=== PATIENT | male | born 1975 | race American Indian/Alaskan Native ===

== ENCOUNTER 2022-01-13 13:32 | Inpatient (IN) | payer MEDICAID, MEDICARE ==
[2022-01-13] MEDS ORDERED: IPRATROPIUM 0.02% NEBU 2.5 ML IH ONE (14:49)
[2022-01-13] MEDS ORDERED: ALBUTEROL 2.5 MG/3 ML NEBU IH ONE ×3 (14:49→21:20)
[2022-01-13] MEDS ORDERED: MAGNESIUM SULFATE 2 GM/50 ML BAG IV ONE (14:49)
[2022-01-13] MEDS ORDERED: AZITHROMYCIN 250 MG TAB PO ONE (14:49)
--- NOTE | 2022-01-13 14:58 | Emergency Department Report ---
<WARREN REILLY - Last Filed: 01/13/22 21:01> ED Shortness of Breath HPI - General Chief Complaint: Dyspnea/Respdistress Stated Complaint: COPD FLARE UP Time Seen by Provider: 01/13/22 14:03 Source: patient Mode of arrival: Wheelchair Limitations: Physical Limitation - History of Present Illness Initial Comments: 46 yo Morbidly Obese M with h/o smoking and COPD brought in by EMS with dyspnea that is been going on for the last 3 days and worsen today. He also mentioned that he ran out of his oxygen since Sunday about 3 days. Pt also mentioned that he was brought in by the EMS for his oxygen that is 4-5 O2/minutes every night and as needed during the day. No fever or chills reported but has been cough as well. No other modifying or associated factors. - Related Data Home Medications Medication Instructions Recorded Confirmed Last Taken Fluticasone/Umeclidin/Vilanter 20 inh INHALATION PRN 04/15/21 04/16/21 Unknown [Treleshanika Ellipta 100-62.5-25(Nf)] Ipratropium [Atrovent NEB] 20 inh INHALATION PRN 04/15/21 04/16/21 Unknown Lisinopril/Hydrochlorothiazide 20 mg DAILY 04/15/21 04/16/21 Unknown Previous Rx's Medication Instructions Recorded Last Taken Type ALPRAZolam [Xanax TAB] 0.5 mg PO Q8H PRN tablet 04/23/21 Unknown Rx Famotidine [Pepcid] 20 mg PO BID tablet 04/23/21 Unknown Rx Insulin Regular, Human [HumuLIN R] 0 units SUB-Q ACHS units 04/23/21 Unknown Rx Prednisone [predniSONE 10 mg 10 mg PO .TAPER #1 tab.ds.pk 04/23/21 Unknown Rx (6-Day Pack, 21 Tabs)] levoFLOXacin [Levaquin] 750 mg PO QDAY #7 tablet 04/23/21 Unknown Rx Allergies Allergy/AdvReac Type Severity Reaction Status Date / Time No Known Allergies Allergy Unverified 07/19/15 09:58 ED Review of Systems Comment: All other systems reviewed and negative Respiratory: cough, shortness of breath, SOB with exertion, SOB at rest ED Past Medical Hx - Past Medical History Previous Medical History?: Yes Hx Hypertension: Yes Hx Asthma: Yes Hx COPD: Yes - Social History Smoking Status: Former Smoker - Medications Home Medications: Home Medications Medication Instructions Recorded Confirmed Last Taken Type Fluticasone/Umeclidin/Vilanter 20 inh INHALATION PRN 04/15/21 04/16/21 Unknown History [Kelsey Ellipta 100-62.5-25(Nf)] Ipratropium [Atrovent NEB] 20 inh INHALATION PRN 04/15/21 04/16/21 Unknown History Lisinopril/Hydrochlorothiazide 20 mg DAILY 04/15/21 04/16/21 Unknown History ALPRAZolam [Xanax TAB] 0.5 mg PO Q8H PRN tablet 04/23/21 Unknown Rx Famotidine [Pepcid] 20 mg PO BID tablet 04/23/21 Unknown Rx Insulin Regular, Human [HumuLIN R] 0 units SUB-Q ACHS units 04/23/21 Unknown Rx Prednisone [predniSONE 10 mg 10 mg PO .TAPER #1 tab.ds.pk 04/23/21 Unknown Rx (6-Day Pack, 21 Tabs)] levoFLOXacin [Levaquin] 750 mg PO QDAY #7 tablet 04/23/21 Unknown Rx ED Physical Exam - General Limitations: Physical Limitation General appearance: alert, in distress (due to dyspnea), obese - Head Head exam: Present: normal inspection - Eye Eye exam: Present: normal appearance Pupils: Present: normal accommodation - ENT ENT exam: Present: normal exam, normal orophraynx, mucous membranes dry - Neck Neck exam: Present: normal inspection, full ROM. Absent: tenderness - Respiratory Respiratory exam: Present: respiratory distress (due to dyspnea ), rales, accessory muscle use. Absent: wheezes - Cardiovascular Cardiovascular Exam: Present: regular rate, normal rhythm, normal heart sounds - GI/Abdominal GI/Abdominal exam: Present: soft, normal bowel sounds. Absent: distended, tenderness - Extremities Exam Extremities exam: Present: normal inspection, normal capillary refill, pedal edema. Absent: tenderness - Back Exam Back exam: Absent: tenderness - Neurological Exam Neurological exam: Present: alert, oriented X3 - Psychiatric Psychiatric exam: Present: normal affect, normal mood - Skin Skin exam: Present: warm, normal color ED Course - Reevaluation(s) Reevaluation #1: Pt signed to Dr Villalpando at shift change while waiting for CT angio chest to rule out PE Pt will need to be admitted for COPD exacerbation or unless positive PE-- ED Medical Decision Making - Lab Data Result diagrams: 01/13/22 15:09 01/13/22 15:09 - EKG Data -: EKG Interpreted by Me EKG shows normal: sinus rhythm Rate: normal - EKG Data 01/13/22 15:03 Noted with a sinus rhythm at a rate of 96 bpm, with nonspecific T wave abnormality in this abnormal ECG. - Medical Decision Making Here with shortness of breath--among differential diagnosis could be but not limited to acute exacerbation of COPD, myocardiac infarction, pulmonary embolism, acute exacerbation of asthma, pneumothorax, pneumonia or Viral or Bacterial Upper/Lower respiratory tract infection or other systemic infection.--To rule out the above will go ahead and order EKG, cardiac enzyme including troponin, BNP, CKMB, chest x-ray, CBC, CMP, UA and or D-dimer. In the meantime we will go ahead and treat with DuoNeb, 125 mg of Solu-Medrol, magnesium sulfate 2 g IV, and will make a case for antibiotics Levaquin considering likely cause to be acute COPD exacerbation and continue to monitor the patient. ED Disposition Clinical Impression: Multifocal pneumonia, Acute respiratory failure with hypoxia, Obesity hypoventilation syndrome Disposition: ADMITTED INPATIENT Does the pt Need Aspirin: No Condition: Stable Instructions: Bacterial Pneumonia (ED) Referrals: PRIMARY CARE, [Primary Care Provider] - 3-5 Days Time of Disposition: 21:06 <SILVER VILLALPANDO - Last Filed: 01/13/22 23:29> ED Review of Systems ROS: Stated complaint: COPD FLARE UP Other details as noted in HPI ED Course Vital Signs 01/13/22 01/13/22 01/13/22 13:58 13:59 14:10 Temperature 98.6 F Pulse Rate 96 H 95 H Pulse Rate [ Bilateral] Respiratory 32 H 36 H Rate Respiratory Rate [Bilateral ] Blood Pressure Blood Pressure 196/113 [Left] O2 Sat by Pulse 91 92 Oximetry 01/13/22 01/13/22 01/13/22 14:16 14:20 14:30 Temperature Pulse Rate 91 H 90 89 Pulse Rate [ Bilateral] Respiratory 25 H 24 32 H Rate Respiratory Rate [Bilateral ] Blood Pressure 196/113 200/105 Blood Pressure [Left] O2 Sat by Pulse 94 96 95 Oximetry 01/13/22 01/13/22 01/13/22 14:45 15:00 15:16 Temperature Pulse Rate 84 97 H 93 H Pulse Rate [ Bilateral] Respiratory 25 H 29 H 30 H Rate Respiratory Rate [Bilateral ] Blood Pressure 185/107 185/107 187/138 Blood Pressure [Left] O2 Sat by Pulse 90 97 90 Oximetry 01/13/22 01/13/22 01/13/22 15:30 15:46 16:00 Temperature Pulse Rate 82 83 78 Pulse Rate [ Bilateral] Respiratory 31 H 33 H 31 H Rate Respiratory Rate [Bilateral ] Blood Pressure 187/138 197/116 187/138 Blood Pressure [Left] O2 Sat by Pulse 92 92 97 Oximetry 01/13/22 01/13/22 01/13/22 16:15 16:30 16:35 Temperature Pulse Rate 75 77 92 H Pulse Rate [ Bilateral] Respiratory 28 H 27 H 22 Rate Respiratory Rate [Bilateral ] Blood Pressure 183/97 183/97 Blood Pressure [Left] O2 Sat by Pulse 95 94 96 Oximetry 01/13/22 01/13/22 01/13/22 16:46 17:00 17:15 Temperature Pulse Rate 78 77 78 Pulse Rate [ Bilateral] Respiratory 30 H 22 32 H Rate Respiratory Rate [Bilateral ] Blood Pressure 186/105 186/105 182/90 Blood Pressure [Left] O2 Sat by Pulse 88 91 93 Oximetry 01/13/22 01/13/22 01/13/22 17:30 17:45 17:55 Temperature Pulse Rate 72 76 Pulse Rate [ Bilateral] Respiratory 30 H 29 H Rate Respiratory Rate [Bilateral ] Blood Pressure 182/90 187/93 Blood Pressure [Left] O2 Sat by Pulse 97 97 92 Oximetry 01/13/22 01/13/22 01/13/22 18:00 18:15 18:17 Temperature Pulse Rate 83 82 Pulse Rate [ Bilateral] Respiratory 34 H 34 H Rate Respiratory Rate [Bilateral ] Blood Pressure 187/93 155/92 Blood Pressure [Left] O2 Sat by Pulse 96 93 96 Oximetry 01/13/22 01/13/22 01/13/22 18:30 19:54 20:34 Temperature Pulse Rate 82 86 Pulse Rate [ 90 Bilateral] Respiratory 32 H 36 H Rate Respiratory 34 H Rate [Bilateral ] Blood Pressure 155/92 199/129 Blood Pressure [Left] O2 Sat by Pulse 97 98 Oximetry 01/13/22 01/13/22 21:48 22:13 Temperature Pulse Rate 112 H Pulse Rate [ 124 H Bilateral] Respiratory 35 H Rate Respiratory 34 H Rate [Bilateral ] Blood Pressure 197/109 Blood Pressure [Left] O2 Sat by Pulse 96 Oximetry ED Medical Decision Making - Lab Data Result diagrams: 01/13/22 15:09 01/13/22 15:09 - Medical Decision Making Signed out at shift change to hi for follow-up CTA chest. CTA chest negative for PE however shows multifocal pneumonia. Patient already given IV Levaquin. He is stable on BiPAP. Will admit to hospitalist. Critical care attestation.: If time is entered above; I have spent that time in minutes in the direct care of this critically ill patient, excluding procedure time. ED Disposition Is pt being admited?: Yes
--- NOTE | 2022-01-13 15:55 | XRay Report ---
XR chest 1V ap INDICATION / CLINICAL INFORMATION: Dyspnea. COMPARISON: 04/14/2021 FINDINGS: SUPPORT DEVICES: None. HEART /PULMONARY VASCULATURE: Cardiac enlargement with pulmonary vasculature congestion. LUNGS / PLEURA: Mild interstitial and airspace opacities within the lung bases, slightly more pronoun juanjo in the right. No sizable pleural effusion. No pneumothorax. ADDITIONAL FINDINGS: No significant additional findings. IMPRESSION: Findings indicative of CHF/volume overload with bibasilar pulmonary edema. Signer Name: Parker Anthony MD Signed: 01/13/2022 3:51 PM Workstation Name: [email or web address]
[2022-01-13 15:59] LABS: Basophils # (Auto) 0.1 K/mm3 (0.0-0.1); Basophils % (Auto) 1.3 % (0.0-1.8); Eosinophils # (Auto) 0.3 K/mm3 (0.0-0.4); Eosinophils % (Auto) 3.7 % (0.0-4.3); Hematocrit 36.3 % (35.5-45.6); Hemoglobin 11.3 gm/dl (11.8-15.2); Lymphocytes # (Auto) 1.4 K/mm3 (1.2-5.4); Lymphocytes % (Auto) 19.7 % (13.4-35.0); Mean Corpuscular HGB Conc 31 % (32-34); Monocytes # (Auto) 0.8 K/mm3 (0.0-0.8); Monocytes % (Auto) 11.2 % (0.0-7.3); Platelet Count 398 K/mm3 (140-440); Red Blood Count 5.26 M/mm3 (3.65-5.03); Red Cell Distribution Width 18.3 % (13.2-15.2)
[2022-01-13 16:02] LABS: ABG Base Excess 0.9 mmol/L (-2.0-3.0); ABG HCO3 25.1 mmol/L (20.0-26.0); ABG Methemoglobin 0.5 % (0.0-1.5); ABG Oxygen Saturation 97.1 % (95.0-99.0); ABG PCO2 38.4 mm Hg; ABG PH 7.432 pH Units (7.350-7.450); ABG PO2 87.5 mm Hg (80.0-90.0)
[2022-01-13 16:04] LABS: INR 0.93 (0.87-1.13)
[2022-01-13 16:05] LABS: Partial Thromboplastin Time 29.6 Sec. (24.2-36.6)
[2022-01-13 16:41] LABS: Mean Corpuscular Volume 69 fl (84-94)
[2022-01-13 17:50] LABS: Alanine Aminotransferase 11 units/L (7-56); Albumin 4.2 g/dL (3.9-5); Blood Urea Nitrogen 8 mg/dL (9-20); Calcium 8.7 mg/dL (8.4-10.2); Hemolysis Index 0
[2022-01-13 18:10] LABS: BUN/Creatinine Ratio 13
[2022-01-13] MEDS ORDERED: MIDAZOLAM 2 MG/2 ML INJ IV ONE (18:36)
[2022-01-13] MEDS ORDERED: MIDAZOLAM 5 MG/5 ML INJ MDV IV ONE (19:50)
[2022-01-13] MEDS ORDERED: IPRATROPIUM/ALBUTEROL SULFATE 3 ML AMPUL.NEB IH ONE ×3 (19:58→22:56)
[2022-01-13] MEDS ORDERED: IPRATROPIUM/ALBUTEROL SULFATE 3 ML AMPUL.NEB IH SCH (20:45)
--- NOTE | 2022-01-13 21:28 | Cat Scan Report ---
CTA CHEST WITH CONTRAST INDICATION / CLINICAL INFORMATION: rule out PE. TECHNIQUE: Axial CT images were obtained through the chest after injection of IV contrast. 3 plane [place] P and/or 3D reconstructions were produced. All CT scans at this location are performed using CT dose reduction for ALARA by means of automated exposure control. COMPARISON: No prior cross-sectional imaging of the chest FINDINGS: PULMONARY EMBOLUS: Evaluation for pulmonary embolus is limited secondary to photon starvation and res piratory motion. Evaluation of the segmental and subsegmental pulmonary arteries is limited. No centr al pulmonary embolus. THORACIC AORTA: No significant abnormality. HEART: Upper limits normal in size. CORONARY ARTERY CALCIFICATION: Absent -- None. MEDIASTINUM / GASTON: Multiple enlarged mediastinal lymph nodes, for example right paratracheal lymph n ode measures 1.6 cm in short axis on image 51 series 2. PLEURA: No pleural effusion. No pneumothorax. LUNGS: Patchy areas of consolidation throughout both lungs, most pronounced in the lower lobes. ADDITIONAL FINDINGS: None. UPPER ABDOMEN: Post surgical changes of the stomach. SKELETAL STRUCTURES: No significant osseous abnormality. IMPRESSION: 1. No CT evidence for pulmonary embolism within the limitations detailed above. 2. Bilateral patchy consolidation throughout both lungs, suggestive of multifocal pneumonia. Mediasti nal lymphadenopathy is likely reactive. Signer Name: Henry Wang MD Signed: 01/13/2022 9:23 PM Workstation Name: [id number]
[2022-01-13] MEDS ORDERED: ONDANSETRON 4 MG/2 ML INJ IV PRN ×2 (23:31→23:34)
[2022-01-13] MEDS ORDERED: ACETAMINOPHEN 325 MG TAB PO PRN ×2 (23:31→23:58)
[2022-01-13] MEDS ORDERED: HYDROcodone/ACETAMINOPHEN 5-325 MG TAB PO PRN (23:31)
[2022-01-13] MEDS ORDERED: MORPHINE 2 MG/1 ML INJ IV PRN ×2 (23:31→23:58)
[2022-01-13] MEDS ORDERED: oxyCODONE /ACETAMINOPHEN 5-325MG TAB PO PRN (23:34)
[2022-01-13] MEDS ORDERED: IBUPROFEN 600 MG TAB PO PRN (23:34)
[2022-01-13] MEDS ORDERED: ENOXAPARIN 40 MG/0.4 ML INJ SUB-Q ONE (23:35)
[2022-01-13] MEDS ORDERED: SODIUM CHLORIDE 0.9% 1000 ML 1,000 ML IV SCH (23:45)
[2022-01-13] MEDS: cefTRIAXone/NS 2 GM/100 ML 2 GM/100 ML BAG IV SCH (23:45)
[2022-01-13] MEDS ORDERED: MAGNESIUM HYDROXIDE (MOM) ORAL LIQD UDC PO PRN (23:58)
[2022-01-13] MEDS ORDERED: MORPHINE 4 MG/1 ML INJ IV PRN (23:58)
--- NOTE | 2022-01-14 00:11 | History and Physical Report ---
History of Present Illness Date of examination: 01/13/22 Date of admission: 01/13/22 23:34 Chief complaint: Shortness of Breath History of present illness: 46-year old morbidly obese male with known history of COPD and tobacco abuse brought into the emergency room today for evaluation of shortness of breath. Shortness of breath has been ongoing for the past 3 days and has gotten worse today. He also indicates that he has been out of his oxygen at home for about 3 days. There has been no history of fever or chills, no chest pain, no nausea or vomiting, no abdominal pain. No headache or dizziness and no diaphoresis. Upon arrival in the emergency room today he was quite tachypneic and tachycardic and found to be wheezing. He was subsequently placed on BiPAP and nebulizing treatments. Lab reveals a D-dimer of 942. Chest x-ray shows CHF/volume overload with bibasilar pulmonary edema CT angiogram of the chest shows no evidence of pulmonary embolism. There is bilateral patchy consolidation throughout both lungs suggestive of multifocal pneumonia. Mediastinal lymphadenopathy is likely reactive. Patient has been placed on nebulizing treatments, empiric IV antibiotics and also on BiPAP. Past History Past Medical History: COPD, hypertension, other (Asthma) Social history: smoking (Former Smoker) Family history: no significant family history Medications and Allergies Allergies Allergy/AdvReac Type Severity Reaction Status Date / Time No Known Allergies Allergy Unverified 07/19/15 09:58 Home Medications Medication Instructions Recorded Confirmed Last Taken Type Fluticasone/Umeclidin/Vilanter 20 inh INHALATION PRN 04/15/21 04/16/21 Unknown History [Kelsey Barbosa 100-62.5-25(Nf)] Ipratropium [Atrovent NEB] 20 inh INHALATION PRN 04/15/21 04/16/21 Unknown History Lisinopril/Hydrochlorothiazide 20 mg DAILY 04/15/21 04/16/21 Unknown History ALPRAZolam [Xanax TAB] 0.5 mg PO Q8H PRN tablet 04/23/21 Unknown Rx Famotidine [Pepcid] 20 mg PO BID tablet 04/23/21 Unknown Rx Insulin Regular, Human [HumuLIN R] 0 units SUB-Q ACHS units 04/23/21 Unknown Rx Prednisone [predniSONE 10 mg 10 mg PO .TAPER #1 tab.ds.pk 04/23/21 Unknown Rx (6-Day Pack, 21 Tabs)] levoFLOXacin [Levaquin] 750 mg PO QDAY #7 tablet 04/23/21 Unknown Rx Active Meds: Active Medications Acetaminophen (Acetaminophen 325 Mg Tab) 650 mg PO Q4H PRN PRN Reason: Pain MILD(1-3)/Fever >100.5/CHANG Acetaminophen (Acetaminophen 325 Mg Tab) 650 mg PO Q6H PRN PRN Reason: Pain MILD(1-3)/Fever >100.5/CHANG Hydrocodone Bitart/Acetaminophen (Hydrocodone/Acetaminophen 5-325 Mg Tab) 2 each PO Q6H PRN PRN Reason: Pain, Moderate (4-6) Albuterol/Ipratropium (Ipratropium/Albuterol Sulfate 3 Ml Ampul.Neb) 1 ampul IH Q4HRT ZAKI Azithromycin (Azithromycin 250 Mg Tab) 500 mg PO QDAY ZAKI; Protocol Sodium Chloride (Nacl 0.9% 1000 Ml) 1,000 mls @ 75 mls/hr IV DIRECT ZAKI Ceftriaxone Sodium (Rocephin/Ns 2 Gm/100 Ml) 2 gm in 100 mls @ 200 mls/hr IV Q24H ZAKI; Protocol Ibuprofen (Ibuprofen 600 Mg Tab) 600 mg PO Q6H PRN PRN Reason: Pain, Mild (1-3) Magnesium Hydroxide (Magnesium Hydroxide (Mom) Oral Liqd Udc) 30 ml PO Q4H PRN PRN Reason: Constipation Methylprednisolone Sodium Succinate (Methylprednisolone Sod Succinate 40 Mg/1 Ml Inj) 40 mg IV Q8HR ZAKI Morphine Sulfate (Morphine 2 Mg/1 Ml Inj) 2 mg IV Q4H PRN PRN Reason: Pain, Moderate (4-6) Morphine Sulfate (Morphine 2 Mg/1 Ml Inj) 2 mg IV Q4H PRN PRN Reason: Pain, Moderate (4-6) Morphine Sulfate (Morphine 4 Mg/1 Ml Inj) 4 mg IV Q4H PRN PRN Reason: Pain , Severe (7-10) Ondansetron HCl (Ondansetron 4 Mg/2 Ml Inj) 4 mg IV Q8H PRN PRN Reason: Nausea And Vomiting Ondansetron HCl (Ondansetron 4 Mg/2 Ml Inj) 4 mg IV Q8H PRN PRN Reason: Nausea And Vomiting Oxycodone/Acetaminophen (Oxycodone /Acetaminophen 5-325mg Tab) 1 tab PO Q6H PRN PRN Reason: Pain, Moderate (4-6) Sodium Chloride (Sodium Chloride 0.9% 10 Ml Flush Syringe) 10 ml IV PRN PRN PRN Reason: LINE FLUSH Sodium Chloride (Sodium Chloride 0.9% 10 Ml Flush Syringe) 10 ml IV BID ZAKI Sodium Chloride (Sodium Chloride 0.9% 10 Ml Flush Syringe) 10 ml IV BID ZAKI Sodium Chloride (Sodium Chloride 0.9% 10 Ml Flush Syringe) 10 ml IV PRN PRN PRN Reason: LINE FLUSH Review of Systems Constitutional: no fever, no chills Ears, nose, mouth and throat: no nasal congestion, no sore throat Cardiovascular: no chest pain, no palpitations Respiratory: cough, shortness of breath, wheezing Gastrointestinal: no abdominal pain, no nausea, no vomiting, no diarrhea Genitourinary Male: no dysuria, no hematuria, no flank pain Musculoskeletal: no neck pain, no low back pain Integumentary: no rash, no pruritis Neurological: no headaches, no confusion Psychiatric: no anxiety, no depression Endocrine: no polyphagia, no polydipsia, no polyuria, no nocturia Exam - Constitutional Vitals: Temp Pulse Resp BP Pulse Ox 98.6 F 112 H 35 H 197/109 96 01/13/22 13:59 01/13/22 22:13 01/13/22 22:13 01/13/22 22:13 01/13/22 22:13 General appearance: Present: mild distress, well-nourished, obese - EENT Eyes: Present: PERRL, EOM intact. Absent: scleral icterus ENT: hearing intact, clear oral mucosa, dentition normal - Neck Neck: Present: supple, normal ROM - Respiratory Respiratory effort: labored, other (On BiPAP) Respiratory: bilateral: wheezing - Cardiovascular Rhythm: regular Heart Sounds: Present: S1 & S2. Absent: systolic murmur, diastolic murmur, rub, click - Extremities Extremities: no ischemia, pulses intact, pulses symmetrical, No edema, normal temperature, normal color, Full ROM Peripheral Pulses: within normal limits - Abdominal General gastrointestinal: Present: soft, non-tender, non-distended, normal bowel sounds. Absent: mass - Integumentary Integumentary: Present: clear, warm, dry, normal turgor. Absent: rash - Musculoskeletal Musculoskeletal: strength equal bilaterally - Psychiatric Psychiatric: appropriate mood/affect, intact judgment & insight, memory intact, cooperative - Neurologic Neurologic: CNII-XII intact, no focal deficits, moves all extremities HEART Score - HEART Score Troponin: Troponin T < 0.010 ng/mL (0.00-0.029) 01/13/22 15:09 Results - Labs CBC & Chem 7: 01/13/22 15:09 01/13/22 15:09 Labs: Abnormal lab results 01/13/22 01/13/22 01/13/22 Range/Units 15:09 15:09 15:09 RBC 5.26 H (3.65-5.03) M/mm3 Hgb 11.3 L (11.8-15.2) gm/dl MCV 69 L (84-94) fl MCH 22 L (28-32) pg MCHC 31 L (32-34) % RDW 18.3 H (13.2-15.2) % Amelia % (Auto) 11.2 H (0.0-7.3) % D-Dimer 942.90 H (0-234) ng/mlDDU ABG Hemoglobin (14.0-18.0) gm/dl Oxyhemoglobin (95.0-99.0) % BUN 8 L (9-20) mg/dL Creatinine 0.6 L (0.8-1.3) mg/dL Alkaline Phosphatase 138 H (35-129) units/L 01/13/22 Range/Units 15:45 RBC (3.65-5.03) M/mm3 Hgb (11.8-15.2) gm/dl MCV (84-94) fl MCH (28-32) pg MCHC (32-34) % RDW (13.2-15.2) % Amelia % (Auto) (0.0-7.3) % D-Dimer (0-234) ng/mlDDU ABG Hemoglobin 11.9 L (14.0-18.0) gm/dl Oxyhemoglobin 94.7 L (95.0-99.0) % BUN (9-20) mg/dL Creatinine (0.8-1.3) mg/dL Alkaline Phosphatase (35-129) units/L Assessment and Plan Assessment: 1. Acute hypoxic respiratory failure 2. COPD exacerbation 3. PUI 4. Multifocal pneumonia 5. Hypertension Plan: 1. Patient admitted and placed on BiPAP. 2. Keep O2 saturation greater equal to 92%. 3. Patient placed on nebulizing treatment and IV steroid. 4. Patient also started on empiric IV antibiotics. DVT prophylaxis: Subcutaneous Lovenox CODE STATUS: Full code
[2022-01-14] MEDS: IPRATROPIUM/ALBUTEROL SULFATE 3 ML AMPUL.NEB IH SCH ×6 (00:41→20:59)
[2022-01-14] MEDS ORDERED: HEPARIN 5,000 UNIT/1 ML VIAL SUB-Q SCH (06:00)
[2022-01-14] MEDS ORDERED: methylPREDNISolone Sod Succinate 40 MG/1 ML INJ IV SCH (06:00)
[2022-01-14] MEDS ORDERED: hydrALAZINE 20 MG/1 ML INJ IV ONE (08:02)
[2022-01-14 09:37] LABS: Amphetamine Screen,Urine Negative; Cannabinoid Screen,Urine Negative; Cocaine Screen,Urine Negative; Methadone Screen,Urine Negative; Opiate Screen,Urine Negative
[2022-01-14 09:38] LABS: Benzodiazepines Screen,Urine Positive
[2022-01-14] MEDS ORDERED: HYDROCHLOROTHIAZIDE PO SCH (10:00)
[2022-01-14] MEDS ORDERED: AZITHROMYCIN 250 MG TAB PO SCH (10:00)
[2022-01-14] MEDS ORDERED: LISINOPRIL PO SCH (10:00)
[2022-01-14] MEDS: hydrALAZINE 20 MG/1 ML INJ IV PRN ×3 (10:34→21:21)
[2022-01-14] MEDS: cefTRIAXone/NS 2 GM/100 ML 2 GM/100 ML BAG IV SCH (10:35)
[2022-01-14] MEDS: FAMOTIDINE 20 MG TAB PO SCH ×2 (10:35→21:22)
[2022-01-14] MEDS ORDERED: MIDAZOLAM 2 MG/2 ML INJ IV SCH (11:00)
--- NOTE | 2022-01-14 11:12 | Progress Note ---
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 Patient remains on Bipap at 60% Fio2, 16/01, SPO2 above 95%. COVID and Flu PCR pending. Continue empiric IV Abx and IV steroids. Pulmonary and ID consult pending. Patient unable to tolerate Bipap off at this am, unable to administer PO meds. PRN hydralazine added for hypertension. Assessment and Plan #Acute Hypoxic Respiratory Failure #Multifocal Pneumonia(CAP) #COVID PUI #H/o COPD and ANNETTA on CPAP at home - Presented with SOB for 3days, use PRN O2 at home. Patient run out of O2 for 3days - SPO2 was in the 80s on 2L on the ED - CTA chest shows no PE, but suggestive of multifocal pneumonia - COVID PCR and Flu PCR pending - Now on continuous Bipap at 60%, 16/01 - Patient is afebrile, with no leukocytosis - On IV steroids, nebulizing treatments, and empiric IV abx- Azithro and Rocephin - Pulmonary and ID consulted - Continue O2 supplementation and wean as tolerated - Continue SPO2 monitoring for SPO2 goal above 92% - Panculture if febrile or patient become hemodynamically unstable #Hypertension - SBP in the 180s this am - Patient unable to tolerate Bipap off at this am, unable to administer PO meds - PRN Hydralazine added - Continue blood pressure monitor per protocol - Maintain MAP SBP less than 160 #Elevated D-Dimer - COVID PCR pending - CTA chest no evidence of PE - BLE doppler ordered to r/o DVT #GI/DVT Prophylaxis - PPI- Pepcid - Lovenox SubQ - SCDs to bilateral lower extremities while in bed #Advance Care Planning - Disease education data, care plan, diagnoses, and prognosis were discussed with patient at the bedside. Patient is a FULL code. Patient acknowledged understanding and agreed with current care plan. The high probability of a clinically significant, sudden or life threatening deterioration of the [multiple] system(s) required my full and direct attention, intervention and personal management. The aggregate critical care time was [60] minutes. This time is in addition to time spent performing reported procedures but includes the following: [x] Data Review and interpretation [x] Patient assessment and monitoring of vital signs [x] Documentation [x] Medication orders and management Disposition Plan: IMCU Total Time Spent with Patient (Minutes): 60 History Interval history: Patient seen and examined at the bedside. Fully AAO, on continuous Bipap at 60% and 22/8, SPO2 above 95%. Patient appears very anxious this am with hypertension, tachycardia, and tachypnea. X1 dose of IV versed given with positive response. Hospitalist Physical - Constitutional Vitals: Temp Pulse Resp BP Pulse Ox 98.6 F 87 32 H 150/86 94 01/13/22 13:59 01/14/22 09:10 01/14/22 09:00 01/14/22 09:10 01/14/22 09:00 General appearance: Present: mild distress, well-nourished, obese - EENT Eyes: Present: PERRL, EOM intact ENT: hearing intact - Neck Neck: Present: normal ROM - Respiratory Respiratory effort: labored, accessory muscle use, other (Tachypnea) Respiratory: bilateral: wheezing - Cardiovascular Rhythm: regular Heart Sounds: Present: S1 & S2 - Extremities Extremities: no ischemia, pulses intact, pulses symmetrical Extremity abnormal: edema - Peripheral Assessment Generalized Edema Type: Non-pitting Edema Degree: 3+ Capillary Refill: < 3 seconds Skin Temperature: Warm Peripheral Pulses: within normal limits - Abdominal General gastrointestinal: soft, non-distended, normal bowel sounds - Integumentary Integumentary: Present: warm, dry - Psychiatric Psychiatric: cooperative, other (Anxiuous) - Neurologic Neurologic: CNII-XII intact, moves all extremities - Allied Health Allied health notes reviewed: nursing HEART Score - HEART Score Troponin: Troponin T < 0.010 ng/mL (0.00-0.029) 01/13/22 15:09 Results - Labs CBC & Chem 7: 01/13/22 15:09 01/13/22 15:09 Labs: Laboratory Last Values WBC 6.9 K/mm3 (4.5-11.0) 01/13/22 15:09 RBC 5.26 M/mm3 (3.65-5.03) H 01/13/22 15:09 Hgb 11.3 gm/dl (11.8-15.2) L 01/13/22 15:09 Hct 36.3 % (35.5-45.6) 01/13/22 15:09 MCV 69 fl (84-94) L 01/13/22 15:09 MCH 22 pg (28-32) L 01/13/22 15:09 MCHC 31 % (32-34) L 01/13/22 15:09 RDW 18.3 % (13.2-15.2) H 01/13/22 15:09 Plt Count 398 K/mm3 (140-440) 01/13/22 15:09 Lymph % (Auto) 19.7 % (13.4-35.0) 01/13/22 15:09 [facility] % (Auto) 11.2 % (0.0-7.3) H 01/13/22 15:09 Eos % (Auto) 3.7 % (0.0-4.3) 01/13/22 15:09 Baso % (Auto) 1.3 % (0.0-1.8) 01/13/22 15:09 Lymph # (Auto) 1.4 K/mm3 (1.2-5.4) 01/13/22 15:09 [facility] # (Auto) 0.8 K/mm3 (0.0-0.8) 01/13/22 15:09 Eos # (Auto) 0.3 K/mm3 (0.0-0.4) 01/13/22 15:09 Baso # (Auto) 0.1 K/mm3 (0.0-0.1) 01/13/22 15:09 Seg Neutrophils % 64.1 % (40.0-70.0) 01/13/22 15:09 Seg Neutrophils # 4.4 K/mm3 (1.8-7.7) 01/13/22 15:09 PT 13.5 Sec. (12.2-14.9) 01/13/22 15:09 INR 0.93 (0.87-1.13) 01/13/22 15:09 APTT 29.6 Sec. (24.2-36.6) 01/13/22 15:09 D-Dimer 942.90 ng/mlDDU (0-234) H 01/13/22 15:09 ABG pH 7.432 pH Units (7.350-7.450) 01/13/22 15:45 ABG pCO2 38.4 mm Hg 01/13/22 15:45 ABG pO2 87.5 mm Hg (80.0-90.0) 01/13/22 15:45 ABG HCO3 25.1 mmol/L (20.0-26.0) 01/13/22 15:45 ABG O2 Saturation 97.1 % (95.0-99.0) 01/13/22 15:45 ABG O2 Content 15.9 (0.0-44) 01/13/22 15:45 ABG Base Excess 0.9 mmol/L (-2.0-3.0) 01/13/22 15:45 ABG Hemoglobin 11.9 gm/dl (14.0-18.0) L 01/13/22 15:45 ABG Carboxyhemoglobin 2.0 % (0.0-5.0) 01/13/22 15:45 ABG Methemoglobin 0.5 % (0.0-1.5) 01/13/22 15:45 Oxyhemoglobin 94.7 % (95.0-99.0) L 01/13/22 15:45 FiO2 40 % 01/13/22 15:45 Sodium 137 mmol/L (137-145) 01/13/22 15:09 Potassium 4.3 mmol/L (3.6-5.0) 01/13/22 15:09 Chloride 101.4 mmol/L (98-107) 01/13/22 15:09 Carbon Dioxide 25 mmol/L (22-30) 01/13/22 15:09 Anion Gap 15 mmol/L 01/13/22 15:09 BUN 8 mg/dL (9-20) L 01/13/22 15:09 Creatinine 0.6 mg/dL (0.8-1.3) L 01/13/22 15:09 Estimated GFR > 60 ml/min 01/13/22 15:09 BUN/Creatinine Ratio 13 % 01/13/22 15:09 Glucose 92 mg/dL (75-100) 01/13/22 15:09 Calcium 8.7 mg/dL (8.4-10.2) 01/13/22 15:09 Total Bilirubin 0.20 mg/dL (0.1-1.2) 01/13/22 15:09 AST 13 units/L (5-40) 01/13/22 15:09 ALT 11 units/L (7-56) 01/13/22 15:09 Alkaline Phosphatase 138 units/L (35-129) H 01/13/22 15:09 Troponin T < 0.010 ng/mL (0.00-0.029) 01/13/22 15:09 Total Protein 6.3 g/dL (6.3-8.2) 01/13/22 15:09 Albumin 4.2 g/dL (3.9-5) 01/13/22 15:09 Albumin/Globulin Ratio 2.0 % 01/13/22 15:09 Urine Opiates Screen Negative 01/14/22 08:49 Urine Methadone Screen Negative 01/14/22 08:49 Ur Barbiturates Screen Negative 01/14/22 08:49 Ur Phencyclidine Scrn Negative 01/14/22 08:49 Ur Amphetamines Screen Negative 01/14/22 08:49 U Benzodiazepines Scrn Positive 01/14/22 08:49 Urine Cocaine Screen Negative 01/14/22 08:49 U Marijuana (THC) Screen Negative 01/14/22 08:49 Drugs of Abuse Note Disclamer 01/14/22 08:49 SARS-CoV-2 (PCR) Negative (Negative) 01/14/22 10:30 Active Medications - Current Medications Current Medications: Generic Name Dose Route Start Last Admin Trade Name Freq PRN Reason Stop Dose Admin Acetaminophen 650 mg 01/13/22 23:58 Acetaminophen 325 Mg Tab PO Q6H PRN Pain MILD(1-3)/Fever >100.5/CHANG Albuterol/Ipratropium 1 ampul 01/14/22 00:00 01/14/22 07:52 Ipratropium/Albuterol Sulfate 3 Ml Ampul.Neb IH 1 ampul Q4HRT ZAKI Administration Alprazolam 0.5 mg 01/14/22 08:22 Alprazolam 0.5 Mg Tab PO Q8H PRN Anxiety Azithromycin 500 mg 01/14/22 10:00 01/14/22 10:35 Azithromycin 250 Mg Tab PO Not Given QDAY [facility] Protocol Enoxaparin Sodium 40 mg 01/14/22 22:00 Enoxaparin 40 Mg/0.4 Ml Inj SUB-Q QHS [facility] Protocol Famotidine 20 mg 01/14/22 10:00 01/14/22 10:35 Famotidine 20 Mg Tab PO Not Given BID [facility] Hydralazine HCl 10 mg 01/14/22 08:28 01/14/22 10:34 Hydralazine 20 Mg/1 Ml Inj IV 10 mg Q4HR PRN Administration Hypertension Sodium Chloride 1,000 mls @ 75 mls/hr 01/13/22 23:45 Nacl 0.9% 1000 Ml IV DIRECT ZAKI Ceftriaxone Sodium 2 gm in 100 mls @ 200 mls/hr 01/13/22 23:45 01/14/22 10:35 Rocephin/Ns 2 Gm/100 Ml IV 200 mls/hr Q24HR [facility] Administration Protocol Ibuprofen 600 mg 01/13/22 23:34 Ibuprofen 600 Mg Tab PO Q6H PRN Pain, Moderate (4-6) Magnesium Hydroxide 30 ml 01/13/22 23:58 Magnesium Hydroxide (Mom) Oral Liqd Udc PO Q4H PRN Constipation Methylprednisolone Sodium Succinate 80 mg 01/14/22 11:07 Methylprednisolone Sod Succinate 40 Mg/1 Ml Inj IV Q8HR [facility] Midazolam HCl 1 mg 01/14/22 11:00 01/14/22 11:02 Midazolam 2 Mg/2 Ml Inj IV 1 mg ONCE [facility] Administration Miscellaneous Medication 20 mg 01/14/22 10:00 Lisinopril/Hydrochlorothiazide PO DAILY [facility] Ondansetron HCl 4 mg 01/13/22 23:31 Ondansetron 4 Mg/2 Ml Inj IV Q8H PRN Nausea And Vomiting Oxycodone/Acetaminophen 1 tab 01/13/22 23:34 Oxycodone /Acetaminophen 5-325mg Tab PO Q6H PRN Pain , Severe (7-10) Sodium Chloride 10 ml 01/13/22 23:31 Sodium Chloride 0.9% 10 Ml Flush Syringe IV PRN PRN LINE FLUSH Sodium Chloride 10 ml 01/14/22 10:00 01/14/22 10:35 Sodium Chloride 0.9% 10 Ml Flush Syringe IV 10 ml BID [facility] Administration Nutrition/Malnutrition Assess - Dietary Evaluation Nutrition/Malnutrition Findings: Nutrition Notes Start: 01/14/22 10:38 Freq: Status: Active Protocol: Document 01/14/22 10:38 EVI (Rec: 01/14/22 10:49 EVI [id number]) Nutrition Notes Need for Assessment generated from: MD Order,Education Initial or Follow up Brief Note Current Diagnosis COPD,Respiratory Failure Other Pertinent Diagnosis Pneumonia, CHF, Bibasilar Pulmonary Edema, Volume Overload, Lymphadenopathy Current Diet Cardiac Diet (since B 01/14). Height 5 ft 8 in Weight 195.045 kg Lynd Body Weight (kg) 70.00 BMI 65.3 Weight change and time frame None provided at admission. Weight Status Morbidly Obese Subjective/Other Information RD consult for nutrition education assessment. No reports available on Pt's PO intake of meals at the time , will assess at F/U. Pt is on Bi-PaP+, O2 saturation @ 94%, according to Vital Signs. Pt still in critical condition , not a candidate for Nutrition Education at the time, will assess feasibility on F/U. Percent of energy/protein needs met: Prescribed Cardiac Diet provides for energy/protein needs (2,230 Kcal/85 g) during LOS. Nutrition Intervention Follow-Up By: 01/20/22 Additional Comments Continue monitoring food tolerance, %PO intake of meals , and BM. <CLARE TATUM - Last Filed: 01/15/22 07:22> Assessment and Plan Assessment and plan: I saw and evaluated the patient. I agree with the findings and the plan of care as documented in the Nurse Practitioner's~note, with the following corrections and additions. Hospitalist Physical - Constitutional Vitals: Temp Pulse Resp BP Pulse Ox 97.9 F 87 21 149/91 96 01/15/22 07:19 01/15/22 06:10 01/15/22 06:10 01/15/22 06:10 01/15/22 06:10 HEART Score - HEART Score Troponin: Troponin T < 0.010 ng/mL (0.00-0.029) 01/13/22 15:09 Results - Labs CBC & Chem 7: 01/15/22 04:28 01/15/22 04:28 Labs: Laboratory Last Values WBC 7.8 K/mm3 (4.5-11.0) 01/15/22 04:28 RBC 5.72 M/mm3 (3.65-5.03) H 01/15/22 04:28 Hgb 12.0 gm/dl (11.8-15.2) 01/15/22 04:28 Hct 40.0 % (35.5-45.6) 01/15/22 04:28 MCV 70 fl (84-94) L 01/15/22 04:28 MCH 21 pg (28-32) L 01/15/22 04:28 MCHC 30 % (32-34) L 01/15/22 04:28 RDW 18.3 % (13.2-15.2) H 01/15/22 04:28 Plt Count 412 K/mm3 (140-440) 01/15/22 04:28 Lymph % (Auto) 11.3 % (13.4-35.0) L 01/15/22 04:28 [facility] % (Auto) 4.2 % (0.0-7.3) 01/15/22 04:28 Eos % (Auto) 0.0 % (0.0-4.3) 01/15/22 04:28 Baso % (Auto) 0.5 % (0.0-1.8) 01/15/22 04:28 Lymph # (Auto) 0.9 K/mm3 (1.2-5.4) L 01/15/22 04:28 [facility] # (Auto) 0.3 K/mm3 (0.0-0.8) 01/15/22 04:28 Eos # (Auto) 0.0 K/mm3 (0.0-0.4) 01/15/22 04:28 Baso # (Auto) 0.0 K/mm3 (0.0-0.1) 01/15/22 04:28 Seg Neutrophils % 84.0 % (40.0-70.0) H 01/15/22 04:28 Seg Neutrophils # 6.6 K/mm3 (1.8-7.7) 01/15/22 04:28 PT 13.5 Sec. (12.2-14.9) 01/13/22 15:09 INR 0.93 (0.87-1.13) 01/13/22 15:09 APTT 29.6 Sec. (24.2-36.6) 01/13/22 15:09 D-Dimer 942.90 ng/mlDDU (0-234) H 01/13/22 15:09 ABG pH 7.425 pH Units (7.350-7.450) 01/15/22 05:20 ABG pCO2 43.6 mm Hg 01/15/22 05:20 ABG pO2 71.2 mm Hg (80.0-90.0) L 01/15/22 05:20 ABG HCO3 28.0 mmol/L (20.0-26.0) H 01/15/22 05:20 ABG O2 Saturation 97.6 % (95.0-99.0) 01/15/22 05:20 ABG O2 Content 8.7 (0.0-44) 01/15/22 05:20 ABG Base Excess 3.3 mmol/L (-2.0-3.0) H 01/15/22 05:20 ABG Hemoglobin 6.4 gm/dl (14.0-18.0) L 01/15/22 05:20 ABG Carboxyhemoglobin 2.3 % (0.0-5.0) 01/15/22 05:20 ABG Methemoglobin 0.4 % (0.0-1.5) 01/15/22 05:20 Oxyhemoglobin 94.9 % (95.0-99.0) L 01/15/22 05:20 FiO2 30 % 01/15/22 05:20 Sodium 131 mmol/L (137-145) L 01/15/22 04:28 Potassium 4.2 mmol/L (3.6-5.0) 01/15/22 04:28 Chloride 96.2 mmol/L (98-107) L 01/15/22 04:28 Carbon Dioxide 25 mmol/L (22-30) 01/15/22 04:28 Anion Gap 14 mmol/L 01/15/22 04:28 BUN 14 mg/dL (9-20) 01/15/22 04:28 Creatinine 0.6 mg/dL (0.8-1.3) L 01/15/22 04:28 Estimated GFR > 60 ml/min 01/15/22 04:28 BUN/Creatinine Ratio 23 % 01/15/22 04:28 Glucose 133 mg/dL (75-100) H 01/15/22 04:28 POC Glucose 122 mg/dL (70-105) H 01/14/22 16:43 Calcium 9.0 mg/dL (8.4-10.2) 01/15/22 04:28 Ferritin 28.2 ng/mL (30.0-300.0) L 01/14/22 11:07 Total Bilirubin 0.30 mg/dL (0.1-1.2) 01/15/22 04:28 AST 12 units/L (5-40) 01/15/22 04:28 ALT 11 units/L (7-56) 01/15/22 04:28 Alkaline Phosphatase 131 units/L (35-129) H 01/15/22 04:28 Lactate Dehydrogenase 215 units/L (91-180) H 01/14/22 11:07 Troponin T < 0.010 ng/mL (0.00-0.029) 01/13/22 15:09 C-Reactive Protein 7.60 mg/dL (0.00-1.30) H 01/14/22 11:07 Total Protein 7.0 g/dL (6.3-8.2) 01/15/22 04:28 Albumin 4.0 g/dL (3.9-5) 01/15/22 04:28 Albumin/Globulin Ratio 1.3 % 01/15/22 04:28 Procalcitonin < 0.05 ng/mL (<0.15) 01/14/22 11:07 Urine Opiates Screen Negative 01/14/22 08:49 Urine Methadone Screen Negative 01/14/22 08:49 Ur Barbiturates Screen Negative 01/14/22 08:49 Ur Phencyclidine Scrn Negative 01/14/22 08:49 Ur Amphetamines Screen Negative 01/14/22 08:49 U Benzodiazepines Scrn Positive 01/14/22 08:49 Urine Cocaine Screen Negative 01/14/22 08:49 U Marijuana (THC) Screen Negative 01/14/22 08:49 Drugs of Abuse Note Disclamer 01/14/22 08:49 SARS-CoV-2 (PCR) Negative (Negative) 01/14/22 10:30 Multani/IV: Voiding Method Urinal Active Medications - Current Medications Current Medications: Generic Name Dose Route Start Last Admin Trade Name Freq PRN Reason Stop Dose Admin Acetaminophen 650 mg 01/13/22 23:58 Acetaminophen 325 Mg Tab PO Q6H PRN Pain MILD(1-3)/Fever >100.5/CHANG Albuterol/Ipratropium 1 ampul 01/14/22 00:00 01/15/22 05:07 Ipratropium/Albuterol Sulfate 3 Ml Ampul.Neb IH 1 ampul Q4HRT ZAKI Administration Alprazolam 0.5 mg 01/14/22 08:22 01/14/22 21:22 Alprazolam 0.5 Mg Tab PO 0.5 mg Q8H PRN Administration Anxiety Azithromycin 500 mg 01/14/22 10:00 01/14/22 10:35 Azithromycin 250 Mg Tab PO Not Given QDAY [facility] Protocol Enoxaparin Sodium 40 mg 01/14/22 22:00 01/14/22 21:17 Enoxaparin 40 Mg/0.4 Ml Inj SUB-Q 40 mg QHS [facility]AKI Administration Protocol Famotidine 20 mg 01/14/22 10:00 01/14/22 21:22 Famotidine 20 Mg Tab PO 20 mg BID ZAKI Administration Hydralazine HCl 10 mg 01/14/22 08:28 01/14/22 21:21 Hydralazine 20 Mg/1 Ml Inj IV 10 mg Q4HR PRN Administration Hypertension Ceftriaxone Sodium 2 gm in 100 mls @ 200 mls/hr 01/13/22 23:45 01/14/22 10:35 Rocephin/Ns 2 Gm/100 Ml IV 200 mls/hr Q24HR [facility]AKI Administration Protocol Ibuprofen 600 mg 01/13/22 23:34 Ibuprofen 600 Mg Tab PO Q6H PRN Pain, Moderate (4-6) Labetalol HCl 10 mg 01/14/22 16:00 Labetalol 20 Mg/4 Ml Inj IV Q4HR PRN Hypertension Magnesium Hydroxide 30 ml 01/13/22 23:58 Magnesium Hydroxide (Mom) Oral Liqd Udc PO Q4H PRN Constipation Methylprednisolone Sodium Succinate 80 mg 01/14/22 11:07 01/15/22 05:13 Methylprednisolone Sod Succinate 40 Mg/1 Ml Inj IV 80 mg Q8HR ZAKI Administration Midazolam HCl 1 mg 01/14/22 11:00 01/14/22 11:02 Midazolam 2 Mg/2 Ml Inj IV 1 mg ONCE ZAKI Administration Miscellaneous Medication 20 mg 01/14/22 10:00 Lisinopril/Hydrochlorothiazide PO DAILY [facility] Ondansetron HCl 4 mg 01/13/22 23:31 Ondansetron 4 Mg/2 Ml Inj IV Q8H PRN Nausea And Vomiting Oxycodone/Acetaminophen 1 tab 01/13/22 23:34 Oxycodone /Acetaminophen 5-325mg Tab PO Q6H PRN Pain , Severe (7-10) Sodium Chloride 10 ml 01/13/22 23:31 01/15/22 05:14 Sodium Chloride 0.9% 10 Ml Flush Syringe IV 10 ml PRN PRN Administration LINE FLUSH Sodium Chloride 10 ml 01/14/22 10:00 01/14/22 21:24 Sodium Chloride 0.9% 10 Ml Flush Syringe IV 10 ml BID ZAKI Administration Nutrition/Malnutrition Assess - Dietary Evaluation Nutrition/Malnutrition Findings: Nutrition Notes Start: 01/14/22 10:38 Freq: Status: Active Protocol: Document 01/14/22 10:38 EVI (Rec: 01/14/22 10:49 EVI [id number]) Nutrition Notes Need for Assessment generated from: MD Order,meteorology professor,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 Labs/Tests 01/14: BUN 8, Crea 0.6. Pertinent Medications 01/14: Nutritionally unremarkable. 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 Weight Status Morbidly Obese Subjective/Other Information RD consult for nutrition education assessment. No reports available on Pt's PO intake of meals at the time , will assess at F/U. Pt is on Bi-PaP+, O2 saturation @ 88%, according to Physical Assessment History notes. Pt still in critical condition , not a candidate for Nutrition Education at the time, will assess feasibility on F/U. Pt shows an unspecified area of concern for skin risk at the time, according to Physical Assessment History notes. Percent of energy/protein needs met: Prescribed Cardiac Diet provides for energy/protein needs (2,230 Kcal/85 g) during LOS. Burn Absent Trauma Absent GI Symptoms None Food Allergy No Skin Integrity/Comment Unspecified area of concern. Minimum of two criteria No Fluid Accumulation N/A Reduced Central Communications Specialist Strength N/A (non-severe) Protein-Calorie Malnutrition N\A #1 Nutrition Diagnosis Overweight/obesity Etiology Uncertain, possibly associated with lifestyle factors. As Evidenced by Signs and Symptoms BMI: 195 Kg/m2. Is patient on ventilator? No Is Patient Ambulatory and/or Out of Bed No REE-(Sturkie-St. Jeor-confined to bed) 3373.920 Kcal/Kg value to use for calculation 10 Approximate Energy Requirements Using 1950 kcal/Kg Calculation Used for Recommendations Kcal/kg Additional Notes Protein: <2.5 g/Kg IBW; <175 g /day. Fluids: 1 ml/Kcal, or as per MD. Nutrition Intervention Change Diet Order: Continue Cardiac Diet as tolerated. Goal #1 Adjust the dietary intervention to better serve Pt's needs and clinical conditions during LOS. Follow-Up By: 01/20/22 Additional Comments Nutrition education will be provided at F/U, if feasible. Continue monitoring food tolerance, %PO intake of meals , and BM.
[2022-01-14] MEDS: methylPREDNISolone Sod Succinate 40 MG/1 ML INJ IV SCH ×2 (13:14→21:22)
[2022-01-14 16:18] LABS: C-Reactive Protein 7.6 mg/dL (0.00-1.30)
[2022-01-14] MEDS: ENOXAPARIN 40 MG/0.4 ML INJ SUB-Q SCH (21:17)
[2022-01-14] MEDS: ALPRAZolam 0.5 MG TAB PO PRN (21:22)
[2022-01-15] MEDS: IPRATROPIUM/ALBUTEROL SULFATE 3 ML AMPUL.NEB IH SCH ×6 (00:46→20:46)
[2022-01-15 05:10] LABS: Basophils % (Auto) 0.5 % (0.0-1.8); Lymphocytes # (Auto) 0.9 K/mm3 (1.2-5.4); Lymphocytes % (Auto) 11.3 % (13.4-35.0); Mean Corpuscular HGB Conc 30 % (32-34); Monocytes # (Auto) 0.3 K/mm3 (0.0-0.8); Monocytes % (Auto) 4.2 % (0.0-7.3); Platelet Count 412 K/mm3 (140-440); Red Blood Count 5.72 M/mm3 (3.65-5.03); Red Cell Distribution Width 18.3 % (13.2-15.2)
[2022-01-15 05:13] LABS: Mean Corpuscular Volume 70 fl (84-94)
[2022-01-15] MEDS: methylPREDNISolone Sod Succinate 40 MG/1 ML INJ IV SCH ×3 (05:13→21:07)
[2022-01-15 05:54] LABS: ABG Base Excess 3.3 mmol/L (-2.0-3.0); ABG Methemoglobin 0.4 % (0.0-1.5); ABG Oxygen Saturation 97.6 % (95.0-99.0); ABG PCO2 43.6 mm Hg; ABG PH 7.425 pH Units (7.350-7.450); ABG PO2 71.2 mm Hg (80.0-90.0)
[2022-01-15 06:01] LABS: Alanine Aminotransferase 11 units/L (7-56); Blood Urea Nitrogen 14 mg/dL (9-20); Hemolysis Index 0
[2022-01-15 06:02] LABS: BUN/Creatinine Ratio 23
[2022-01-15] MEDS ORDERED: FUROSEMIDE 40 MG/4 ML INJ IV SCH (09:00)
[2022-01-15] MEDS: FUROSEMIDE 20 MG/2 ML INJ ONE ×2 (09:17→09:58)
[2022-01-15] MEDS: cefTRIAXone/NS 2 GM/100 ML 2 GM/100 ML BAG IV SCH (09:18)
[2022-01-15] MEDS: FAMOTIDINE 20 MG TAB PO SCH ×2 (09:19→21:07)
--- NOTE | 2022-01-15 09:48 | Progress Note ---
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 Patient remains on Bipap at 60% Fio2, /8, SPO2 above 95%. COVID and Flu PCR pending. Continue empiric IV Abx and IV steroids. Pulmonary and ID consult pending. Patient unable to tolerate Bipap off at this am, unable to administer PO meds. PRN hydralazine added for hypertension. 01/15: Remains stable on the Bipap, still on 60% Fio2. COVID PCR negative. This am ABG noted. Wheezing and bibasilar crakles appreciated this morning. X1 dose of IV lasix ordered, will check BNP and 2D echo. Continue current IV Abx and wean O2 supplementation as tolerated for SPO2 above 88%. Pulmonary is also following. Assessment and Plan #Acute Hypoxic Respiratory Failure #Multifocal Pneumonia(CAP) #COVID PUI #H/o COPD and ANNETTA on CPAP at home - Presented with SOB for 3days, use PRN O2 at home. Patient run out of O2 for 3d ays - SPO2 was in the 80s on 2L on the ED - CTA chest shows no PE, but suggestive of multifocal pneumonia - COVID PCR negative and Flu PCR pending - This am ABG noted. - Now on continuous Bipap at 60%, 22/8 - Wheezing and bibasilar crakles appreciated this morning. - X1 dose of IV lasix ordered, will check BNP and 2D echo. - Patient is afebrile, with no leukocytosis - On IV steroids, nebulizing treatments, and empiric IV abx- Azithro and Rocephin - Pulmonary and ID consulted - Continue O2 supplementation and wean as tolerated - Continue SPO2 monitoring for SPO2 goal above 88% - Panculture if febrile or patient become hemodynamically unstable #Hypertension - SBP in the 180s this am - Patient unable to tolerate Bipap off at this am, unable to administer PO meds - PRN Hydralazine and Labetalol added - Continue blood pressure monitor per protocol - Maintain MAP SBP less than 160 #Elevated D-Dimer - COVID PCR pending - CTA chest no evidence of PE - BLE doppler ordered to r/o DVT #GI/DVT Prophylaxis - PPI- Pepcid - Lovenox SubQ - SCDs to bilateral lower extremities while in bed #Advance Care Planning - Disease education data, care plan, diagnoses, and prognosis were discussed with patient at the bedside. Patient is a FULL code. Patient acknowledged understanding and agreed with current care plan. The high probability of a clinically significant, sudden or life threatening d eterioration of the [multiple] system(s) required my full and direct attention, intervention and personal management. The aggregate critical care time was [60] minutes. This time is in addition to time spent performing reported procedures but includes the following: [x] Data Review and interpretation [x] Patient assessment and monitoring of vital signs [x] Documentation [x] Medication orders and management Disposition Plan: IMCU Total Time Spent with Patient (Minutes): 60 History Interval history: Patient seen and examined at the bedside. Remains stable on the Bipap, SPO2 above 95%. VSS. MERCEDES overnight Hospitalist Physical - Constitutional Vitals: Temp Pulse Resp BP Pulse Ox 97.9 F 86 20 145/82 96 01/15/22 07:19 01/15/22 08:00 01/15/22 08:00 01/15/22 08:00 01/15/22 08:00 General appearance: Present: mild distress, well-nourished, obese - EENT Eyes: Present: PERRL, EOM intact ENT: hearing intact - Neck Neck: Present: normal ROM - Respiratory Respiratory effort: normal Respiratory: bilateral: wheezing - Cardiovascular Rhythm: regular Heart Sounds: Present: S1 & S2 - Extremities Extremities: no ischemia, pulses intact, pulses symmetrical Extremity abnormal: edema - Peripheral Assessment Generalized Edema Type: Non-pitting Edema Degree: 3+ Capillary Refill: < 3 seconds Skin Temperature: Warm Peripheral Pulses: within normal limits - Abdominal General gastrointestinal: soft, non-distended, normal bowel sounds - Integumentary Integumentary: Present: warm, dry - Psychiatric Psychiatric: appropriate mood/affect, cooperative - Neurologic Neurologic: CNII-XII intact, moves all extremities - Allied Health Allied health notes reviewed: nursing, case management HEART Score - HEART Score Troponin: Troponin T < 0.010 ng/mL (0.00-0.029) 01/13/22 15:09 Results - Labs CBC & Chem 7: 01/15/22 04:28 01/15/22 04:28 Labs: Laboratory Last Values WBC 7.8 K/mm3 (4.5-11.0) 01/15/22 04:28 RBC 5.72 M/mm3 (3.65-5.03) H 01/15/22 04:28 Hgb 12.0 gm/dl (11.8-15.2) 01/15/22 04:28 Hct 40.0 % (35.5-45.6) 01/15/22 04:28 MCV 70 fl (84-94) L 01/15/22 04:28 MCH 21 pg (28-32) L 01/15/22 04:28 MCHC 30 % (32-34) L 01/15/22 04:28 RDW 18.3 % (13.2-15.2) H 01/15/22 04:28 Plt Count 412 K/mm3 (140-440) 01/15/22 04:28 Lymph % (Auto) 11.3 % (13.4-35.0) L 01/15/22 04:28 [place] % (Auto) 4.2 % (0.0-7.3) 01/15/22 04:28 Eos % (Auto) 0.0 % (0.0-4.3) 01/15/22 04:28 Baso % (Auto) 0.5 % (0.0-1.8) 01/15/22 04:28 Lymph # (Auto) 0.9 K/mm3 (1.2-5.4) L 01/15/22 04:28 [place] # (Auto) 0.3 K/mm3 (0.0-0.8) 01/15/22 04:28 Eos # (Auto) 0.0 K/mm3 (0.0-0.4) 01/15/22 04:28 Baso # (Auto) 0.0 K/mm3 (0.0-0.1) 01/15/22 04:28 Seg Neutrophils % 84.0 % (40.0-70.0) H 01/15/22 04:28 Seg Neutrophils # 6.6 K/mm3 (1.8-7.7) 01/15/22 04:28 PT 13.5 Sec. (12.2-14.9) 01/13/22 15:09 INR 0.93 (0.87-1.13) 01/13/22 15:09 APTT 29.6 Sec. (24.2-36.6) 01/13/22 15:09 D-Dimer 942.90 ng/mlDDU (0-234) H 01/13/22 15:09 ABG pH 7.425 pH Units (7.350-7.450) 01/15/22 05:20 ABG pCO2 43.6 mm Hg 01/15/22 05:20 ABG pO2 71.2 mm Hg (80.0-90.0) L 01/15/22 05:20 ABG HCO3 28.0 mmol/L (20.0-26.0) H 01/15/22 05:20 ABG O2 Saturation 97.6 % (95.0-99.0) 01/15/22 05:20 ABG O2 Content 8.7 (0.0-44) 01/15/22 05:20 ABG Base Excess 3.3 mmol/L (-2.0-3.0) H 01/15/22 05:20 ABG Hemoglobin 6.4 gm/dl (14.0-18.0) L 01/15/22 05:20 ABG Carboxyhemoglobin 2.3 % (0.0-5.0) 01/15/22 05:20 ABG Methemoglobin 0.4 % (0.0-1.5) 01/15/22 05:20 Oxyhemoglobin 94.9 % (95.0-99.0) L 01/15/22 05:20 FiO2 30 % 01/15/22 05:20 Sodium 131 mmol/L (137-145) L 01/15/22 04:28 Potassium 4.2 mmol/L (3.6-5.0) 01/15/22 04:28 Chloride 96.2 mmol/L (98-107) L 01/15/22 04:28 Carbon Dioxide 25 mmol/L (22-30) 01/15/22 04:28 Anion Gap 14 mmol/L 01/15/22 04:28 BUN 14 mg/dL (9-20) 01/15/22 04:28 Creatinine 0.6 mg/dL (0.8-1.3) L 01/15/22 04:28 Estimated GFR > 60 ml/min 01/15/22 04:28 BUN/Creatinine Ratio 23 % 01/15/22 04:28 Glucose 133 mg/dL (75-100) H 01/15/22 04:28 POC Glucose 122 mg/dL (70-105) H 01/14/22 16:43 Calcium 9.0 mg/dL (8.4-10.2) 01/15/22 04:28 Ferritin 28.2 ng/mL (30.0-300.0) L 01/14/22 11:07 Total Bilirubin 0.30 mg/dL (0.1-1.2) 01/15/22 04:28 AST 12 units/L (5-40) 01/15/22 04:28 ALT 11 units/L (7-56) 01/15/22 04:28 Alkaline Phosphatase 131 units/L (35-129) H 01/15/22 04:28 Lactate Dehydrogenase 215 units/L (91-180) H 01/14/22 11:07 Troponin T < 0.010 ng/mL (0.00-0.029) 01/13/22 15:09 C-Reactive Protein 7.60 mg/dL (0.00-1.30) H 01/14/22 11:07 Total Protein 7.0 g/dL (6.3-8.2) 01/15/22 04:28 Albumin 4.0 g/dL (3.9-5) 01/15/22 04:28 Albumin/Globulin Ratio 1.3 % 01/15/22 04:28 Procalcitonin < 0.05 ng/mL (<0.15) 01/14/22 11:07 Urine Opiates Screen Negative 01/14/22 08:49 Urine Methadone Screen Negative 01/14/22 08:49 Ur Barbiturates Screen Negative 01/14/22 08:49 Ur Phencyclidine Scrn Negative 01/14/22 08:49 Ur Amphetamines Screen Negative 01/14/22 08:49 U Benzodiazepines Scrn Positive 01/14/22 08:49 Urine Cocaine Screen Negative 01/14/22 08:49 U Marijuana (THC) Screen Negative 01/14/22 08:49 Drugs of Abuse Note Disclamer 01/14/22 08:49 SARS-CoV-2 (PCR) Negative (Negative) 01/14/22 10:30 Multani/IV: Voiding Method Urinal Active Medications - Current Medications Current Medications: Generic Name Dose Route Start Last Admin Trade Name Freq PRN Reason Stop Dose Admin Acetaminophen 650 mg 01/13/22 23:58 Acetaminophen 325 Mg Tab PO Q6H PRN Pain MILD(1-3)/Fever >100.5/CHANG Albuterol/Ipratropium 1 ampul 01/14/22 00:00 01/15/22 08:02 Ipratropium/Albuterol Sulfate 3 Ml Ampul.Neb IH 1 ampul Q4HRT ZAKI Administration Alprazolam 0.5 mg 01/14/22 08:22 01/14/22 21:22 Alprazolam 0.5 Mg Tab PO 0.5 mg Q8H PRN Administration Anxiety Enoxaparin Sodium 40 mg 01/14/22 22:00 01/14/22 21:17 Enoxaparin 40 Mg/0.4 Ml Inj SUB-Q 40 mg QHS ZAKI Administration Protocol Famotidine 20 mg 01/14/22 10:00 01/15/22 09:19 Famotidine 20 Mg Tab PO 20 mg BID ZAKI Administration Furosemide 20 mg 01/15/22 09:00 Furosemide 40 Mg/4 Ml Inj IV 01/15/22 23:00 ONCE ZAKI Hydralazine HCl 10 mg 01/14/22 08:28 01/14/22 21:21 Hydralazine 20 Mg/1 Ml Inj IV 10 mg Q4HR PRN Administration Hypertension Ceftriaxone Sodium 2 gm in 100 mls @ 200 mls/hr 01/13/22 23:45 01/15/22 09:18 Rocephin/Ns 2 Gm/100 Ml IV 200 mls/hr Q24HR ZAKI Administration Protocol Azithromycin 500 mg in 250 mls @ 250 mls/hr 01/15/22 10:00 Zithromax/Ns IV Q24H ZAKI Ibuprofen 600 mg 01/13/22 23:34 Ibuprofen 600 Mg Tab PO Q6H PRN Pain, Moderate (4-6) Labetalol HCl 10 mg 01/14/22 16:00 Labetalol 20 Mg/4 Ml Inj IV Q4HR PRN Hypertension Magnesium Hydroxide 30 ml 01/13/22 23:58 Magnesium Hydroxide (Mom) Oral Liqd Udc PO Q4H PRN Constipation Methylprednisolone Sodium Succinate 80 mg 01/14/22 11:07 01/15/22 05:13 Methylprednisolone Sod Succinate 40 Mg/1 Ml Inj IV 80 mg Q8HR ZAKI Administration Midazolam HCl 1 mg 01/14/22 11:00 01/14/22 11:02 Midazolam 2 Mg/2 Ml Inj IV 1 mg ONCE ZAKI Administration Miscellaneous Medication 20 mg 01/14/22 10:00 Lisinopril/Hydrochlorothiazide PO DAILY ZAKI Ondansetron HCl 4 mg 01/13/22 23:31 Ondansetron 4 Mg/2 Ml Inj IV Q8H PRN Nausea And Vomiting Oxycodone/Acetaminophen 1 tab 01/13/22 23:34 Oxycodone /Acetaminophen 5-325mg Tab PO Q6H PRN Pain , Severe (7-10) Sodium Chloride 10 ml 01/13/22 23:31 01/15/22 05:14 Sodium Chloride 0.9% 10 Ml Flush Syringe IV 10 ml PRN PRN Administration LINE FLUSH Sodium Chloride 10 ml 01/14/22 10:00 01/14/22 21:24 Sodium Chloride 0.9% 10 Ml Flush Syringe IV 10 ml BID ZAKI Administration Nutrition/Malnutrition Assess - Dietary Evaluation Nutrition/Malnutrition Findings: Nutrition Notes Start: 01/14/22 10:38 Freq: Status: Active Protocol: Document 01/14/22 10:38 EVI (Rec: 01/14/22 10:49 EVI [id number]) Nutrition Notes Need for Assessment generated from: MD Order,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 Labs/Tests 01/14: BUN 8, Crea 0.6. Pertinent Medications 01/14: Nutritionally unremarkable. 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 Weight Status Morbidly Obese Subjective/Other Information RD consult for nutrition education assessment. No reports available on Pt's PO intake of meals at the time , will assess at F/U. Pt is on Bi-PaP+, O2 saturation @ 88%, according to Physical Assessment History notes. Pt still in critical condition , not a candidate for Nutrition Education at the time, will assess feasibility on F/U. Pt shows an unspecified area of concern for skin risk at the time, according to Physical Assessment History notes. Percent of energy/protein needs met: Prescribed Cardiac Diet provides for energy/protein needs (2,230 Kcal/85 g) during LOS. Burn Absent Trauma Absent GI Symptoms None Food Allergy No Skin Integrity/Comment Unspecified area of concern. Minimum of two criteria No Fluid Accumulation N/A Reduced Supervisor Cell Maintenance Strength N/A (non-severe) Protein-Calorie Malnutrition N\A #1 Nutrition Diagnosis Overweight/obesity Etiology Uncertain, possibly associated with lifestyle factors. As Evidenced by Signs and Symptoms BMI: 195 Kg/m2. Is patient on ventilator? No Is Patient Ambulatory and/or Out of Bed No REE-([facility]-confined to bed) 3373.920 Kcal/Kg value to use for calculation 10 Approximate Energy Requirements Using 1950 kcal/Kg Calculation Used for Recommendations Kcal/kg Additional Notes Protein: <2.5 g/Kg IBW; <175 g /day. Fluids: 1 ml/Kcal, or as per MD. Nutrition Intervention Change Diet Order: Continue Cardiac Diet as tolerated. Goal #1 Adjust the dietary intervention to better serve Pt's needs and clinical conditions during LOS. Follow-Up By: 01/20/22 Additional Comments Nutrition education will be provided at F/U, if feasible. Continue monitoring food tolerance, %PO intake of meals , and BM.
[2022-01-15] MEDS: ALPRAZolam 0.5 MG TAB PO PRN (09:58)
[2022-01-15] MEDS: AZITHROMYCIN/NS 500 MG/250 ML 500 MG/250 ML BAG IV SCH (10:04)
[2022-01-15] MEDS: hydroCHLOROthiazide 12.5 MG CAP PO SCH (10:29)
[2022-01-15] MEDS: LISINOPRIL 20 MG TAB PO SCH (10:29)
--- NOTE | 2022-01-15 15:12 | Progress Note ---
Assessment and Plan Imp: 1. Pneumonia 2. COPD exac. 3. ANNETTA 4. Morbid obesity 5. Acute respiratory failure, hypoxia Rec: 1. Cont. Rocephin/Azithro, current Solumedrol dose, Bronchodilators 2. BIPAP QHS and prn 3. DVT PPx 4. F/u Echo 5. Further plans pending clinical course 6. CCT 31 minutes Thanks kindly for the consult. Subjective Date of service: 01/14/22 Principal diagnosis: COPD exac. Interval history: CC: SOB HPI: 46 yo admitted with increased SOB, hypoxia, respiratory failure, wheezing. Last seen by me in office 04/2021 at which time NIV was ordered but unsure if he obtained. He is supposed to be on Trelegy 100mcg 1 puff daily. Currently resting on Bipap, arousable. PMH: COPD, ANNETTA, Morbid obesity All: NKDA SH: Nonsmoker FH: No pulm issues reported ROS: Neg x 10 systems Objective Vital Signs - 12hr 01/15/22 01/15/22 01/15/22 03:10 03:20 03:30 Temperature Pulse Rate 82 84 88 Pulse Rate [ Bilateral] Pulse Rate [ From Monitor] Pulse Rate [ None] Respiratory 20 22 25 H Rate Respiratory Rate [Bilateral ] Respiratory Rate [ Generalized] Blood Pressure 166/78 166/78 166/78 O2 Sat by Pulse 94 94 94 Oximetry 01/15/22 01/15/22 01/15/22 03:40 03:50 04:00 Temperature Pulse Rate 90 85 Pulse Rate [ 90 Bilateral] Pulse Rate [ From Monitor] Pulse Rate [ None] Respiratory 18 28 H Rate Respiratory 28 H Rate [Bilateral ] Respiratory 32 H Rate [ Generalized] Blood Pressure 166/78 166/78 166/78 O2 Sat by Pulse 96 99 96 Oximetry 01/15/22 01/15/22 01/15/22 04:10 04:20 04:30 Temperature 96.6 F L Pulse Rate 85 91 H 85 Pulse Rate [ Bilateral] Pulse Rate [ From Monitor] Pulse Rate [ 86 None] Respiratory 26 H 31 H 41 H Rate Respiratory Rate [Bilateral ] Respiratory Rate [ Generalized] Blood Pressure 138/86 138/86 138/86 O2 Sat by Pulse 95 99 96 Oximetry 01/15/22 01/15/22 01/15/22 04:40 04:50 05:00 Temperature Pulse Rate 86 90 96 H Pulse Rate [ Bilateral] Pulse Rate [ From Monitor] Pulse Rate [ None] Respiratory 37 H 30 H 24 Rate Respiratory Rate [Bilateral ] Respiratory Rate [ Generalized] Blood Pressure 138/86 138/86 138/86 O2 Sat by Pulse 97 97 97 Oximetry 01/15/22 01/15/22 01/15/22 05:10 05:20 05:30 Temperature Pulse Rate 84 87 88 Pulse Rate [ Bilateral] Pulse Rate [ From Monitor] Pulse Rate [ None] Respiratory 23 23 26 H Rate Respiratory Rate [Bilateral ] Respiratory Rate [ Generalized] Blood Pressure 149/91 149/91 149/91 O2 Sat by Pulse 96 97 96 Oximetry 01/15/22 01/15/22 01/15/22 05:40 05:50 06:00 Temperature Pulse Rate 86 86 86 Pulse Rate [ Bilateral] Pulse Rate [ From Monitor] Pulse Rate [ None] Respiratory 20 24 20 Rate Respiratory Rate [Bilateral ] Respiratory Rate [ Generalized] Blood Pressure 149/91 138/86 151/76 O2 Sat by Pulse 95 95 95 Oximetry 01/15/22 01/15/22 01/15/22 06:10 07:19 08:00 Temperature 97.9 F Pulse Rate 87 83 Pulse Rate [ 86 Bilateral] Pulse Rate [ 82 From Monitor] Pulse Rate [ None] Respiratory 21 20 Rate Respiratory 20 Rate [Bilateral ] Respiratory 20 Rate [ Generalized] Blood Pressure 149/91 145/82 O2 Sat by Pulse 96 96 Oximetry 01/15/22 01/15/22 01/15/22 10:29 10:30 11:21 Temperature Pulse Rate 110 H Pulse Rate [ 99 H Bilateral] Pulse Rate [ From Monitor] Pulse Rate [ None] Respiratory Rate Respiratory 32 H Rate [Bilateral ] Respiratory Rate [ Generalized] Blood Pressure 154/94 O2 Sat by Pulse 92 Oximetry 01/15/22 01/15/22 11:36 12:00 Temperature 97.9 F Pulse Rate 122 H Pulse Rate [ Bilateral] Pulse Rate [ From Monitor] Pulse Rate [ None] Respiratory Rate Respiratory Rate [Bilateral ] Respiratory 20 Rate [ Generalized] Blood Pressure O2 Sat by Pulse Oximetry Constitutional: alert, other (critically ill) Eyes: non-icteric ENT: oropharynx moist Neck: supple Effort: normal Ascultation: Bilateral: wheezes Tactile fremitus: Right: other Cardiovascular: other (RRR w/ no mrg) Gastrointestinal: normoactive bowel sounds, soft, non-tender, non-distended Integumentary: normal Extremities: no cyanosis, no edema Neurologic: normal mental status, non-focal exam, pupils equal and round Psychiatric: mood appropriate, affect normal CBC and BMP: 01/15/22 04:28 01/15/22 04:28 ABG, PT/INR, D-dimer: ABG ABG pH 7.425 pH Units (7.350-7.450) 01/15/22 05:20 ABG pCO2 43.6 mm Hg 01/15/22 05:20 ABG pO2 71.2 mm Hg (80.0-90.0) L 01/15/22 05:20 ABG O2 Saturation 97.6 % (95.0-99.0) 01/15/22 05:20 PT/INR, D-dimer PT 13.5 Sec. (12.2-14.9) 01/13/22 15:09 INR 0.93 (0.87-1.13) 01/13/22 15:09 D-Dimer 942.90 ng/mlDDU (0-234) H 01/13/22 15:09 Abnormal lab findings: Abnormal Labs 01/13/22 01/13/22 01/13/22 15:09 15:09 15:09 RBC 5.26 H Hgb 11.3 L MCV 69 L MCH 22 L MCHC 31 L RDW 18.3 H Lymph % (Auto) [place] % (Auto) 11.2 H Lymph # (Auto) Seg Neutrophils % D-Dimer 942.90 H ABG pO2 ABG HCO3 ABG Base Excess ABG Hemoglobin Oxyhemoglobin Sodium Chloride BUN 8 L Creatinine 0.6 L Glucose POC Glucose Ferritin Alkaline Phosphatase 138 H Lactate Dehydrogenase C-Reactive Protein 01/13/22 01/14/22 01/14/22 15:45 11:07 11:07 RBC Hgb MCV MCH MCHC RDW Lymph % (Auto) [place] % (Auto) Lymph # (Auto) Seg Neutrophils % D-Dimer ABG pO2 ABG HCO3 ABG Base Excess ABG Hemoglobin 11.9 L Oxyhemoglobin 94.7 L Sodium Chloride BUN Creatinine Glucose POC Glucose Ferritin 28.2 L Alkaline Phosphatase Lactate Dehydrogenase 215 H C-Reactive Protein 7.60 H 01/14/22 01/15/22 01/15/22 16:43 04:28 04:28 RBC 5.72 H Hgb MCV 70 L MCH 21 L MCHC 30 L RDW 18.3 H Lymph % (Auto) 11.3 L [place] % (Auto) Lymph # (Auto) 0.9 L Seg Neutrophils % 84.0 H D-Dimer ABG pO2 ABG HCO3 ABG Base Excess ABG Hemoglobin Oxyhemoglobin Sodium 131 L Chloride 96.2 L BUN Creatinine 0.6 L Glucose 133 H POC Glucose 122 H Ferritin Alkaline Phosphatase 131 H Lactate Dehydrogenase C-Reactive Protein 01/15/22 05:20 RBC Hgb MCV MCH MCHC RDW Lymph % (Auto) [place] % (Auto) Lymph # (Auto) Seg Neutrophils % D-Dimer ABG pO2 71.2 L ABG HCO3 28.0 H ABG Base Excess 3.3 H ABG Hemoglobin 6.4 L Oxyhemoglobin 94.9 L Sodium Chloride BUN Creatinine Glucose POC Glucose Ferritin Alkaline Phosphatase Lactate Dehydrogenase C-Reactive Protein Chest x-ray: report reviewed, image reviewed CT scan - chest: report reviewed, image reviewed
[2022-01-15] MEDS: INSULIN REGULAR, HUMAN 100 UNITS/1 ML SUB-Q SCH (18:13)
[2022-01-15] MEDS: ENOXAPARIN 40 MG/0.4 ML INJ SUB-Q SCH (21:08)
[2022-01-15] MEDS: INSULIN GLARGINE 100 UNITS/ML SUB-Q SCH (21:22)
[2022-01-16] MEDS: IPRATROPIUM/ALBUTEROL SULFATE 3 ML AMPUL.NEB IH SCH ×6 (00:44→21:00)
[2022-01-16] MEDS: INSULIN REGULAR, HUMAN 100 UNITS/1 ML SUB-Q SCH ×5 (03:04→22:21)
--- NOTE | 2022-01-16 04:06 | XRay Report ---
CHEST 1 VIEW INDICATION / CLINICAL INFORMATION: Follow up respiratory failure. COMPARISON: Chest x-ray 01/13/2022 FINDINGS: SUPPORT DEVICES: None. HEART / MEDIASTINUM: Stable interval appearance of the cardiomediastinal silhouette. LUNGS / PLEURA: Bilateral lung opacities demonstrate no significant interval change. Bilateral hilar prominence is stable. BONES: No significant osseous abnormality. ADDITIONAL FINDINGS: No significant additional findings. IMPRESSION: 1. No significant interval change in bilateral mid and lower lung opacities. Signer Name: Giorgi Ricketts II, MD Signed: 01/16/2022 4:02 AM Workstation Name: Phone [id number]
[2022-01-16 04:18] LABS: Mean Corpuscular HGB Conc 30 % (32-34); Mean Corpuscular Volume 70 fl (84-94); Platelet Count 461 K/mm3 (140-440); Red Blood Count 5.74 M/mm3 (3.65-5.03); Red Cell Distribution Width 17.9 % (13.2-15.2)
[2022-01-16 04:20] LABS: Hematocrit 40.3 % (35.5-45.6)
[2022-01-16 04:36] LABS: Blood Urea Nitrogen 25 mg/dL (9-20); Calcium 8.9 mg/dL (8.4-10.2); Hemolysis Index 7
[2022-01-16 05:15] LABS: BUN/Creatinine Ratio 36
[2022-01-16] MEDS: methylPREDNISolone Sod Succinate 40 MG/1 ML INJ IV SCH ×3 (05:47→22:21)
--- NOTE | 2022-01-16 10:59 | Progress Note ---
Assessment and Plan 46 y/o morbidly obese male with acute on chronic respiratory failure, COPD exacerbation and ANNETTA with likely OHS as well. 1. Continue steroids 2. Wean FiO2 as tolerated, baseline flow of oxygen at home is about 5-6 3. Daily net negative volume state 4. Scheduled nebs 5. weight loss if possible Subjective Date of service: 01/16/22 Principal diagnosis: COPD exac. Interval history: Awake and alert. Back on bipap at 60%. Appears comfortable. Per patient was lost to follow up as he lost his insurance. Has been trying to get disability for several months now. NIV stopped working 2 weeks ago and he has not been able to get a serviced. States that he got it on his last hospital stay here. Family/friend at bedside. Objective Vital Signs - 12hr 01/15/22 01/15/22 01/15/22 23:01 23:11 23:18 Temperature Pulse Rate 81 78 81 Pulse Rate [ Bilateral] Pulse Rate [ From Monitor] Respiratory 18 26 H 22 Rate Respiratory Rate [Bilateral ] Blood Pressure 139/81 139/81 O2 Sat by Pulse 100 97 96 Oximetry 01/15/22 01/15/22 01/15/22 23:21 23:31 23:41 Temperature Pulse Rate 78 72 74 Pulse Rate [ Bilateral] Pulse Rate [ From Monitor] Respiratory 26 H 24 22 Rate Respiratory Rate [Bilateral ] Blood Pressure 139/81 139/81 139/81 O2 Sat by Pulse 97 97 98 Oximetry 01/15/22 01/16/22 01/16/22 23:51 00:00 00:11 Temperature 97.9 F Pulse Rate 70 72 73 Pulse Rate [ 65 Bilateral] Pulse Rate [ From Monitor] Respiratory 20 19 20 Rate Respiratory 20 Rate [Bilateral ] Blood Pressure 139/81 141/86 141/86 O2 Sat by Pulse 98 98 97 Oximetry 01/16/22 01/16/22 01/16/22 00:21 00:31 00:40 Temperature Pulse Rate 74 66 81 Pulse Rate [ Bilateral] Pulse Rate [ From Monitor] Respiratory 22 Rate Respiratory Rate [Bilateral ] Blood Pressure 141/86 141/86 O2 Sat by Pulse 98 97 98 Oximetry 01/16/22 01/16/22 01/16/22 00:41 00:51 01:00 Temperature Pulse Rate 75 77 71 Pulse Rate [ Bilateral] Pulse Rate [ From Monitor] Respiratory 24 25 H 21 Rate Respiratory Rate [Bilateral ] Blood Pressure 141/86 141/86 139/80 O2 Sat by Pulse 98 98 97 Oximetry 01/16/22 01/16/22 01/16/22 01:11 01:21 01:30 Temperature Pulse Rate 84 76 69 Pulse Rate [ Bilateral] Pulse Rate [ From Monitor] Respiratory 19 23 18 Rate Respiratory Rate [Bilateral ] Blood Pressure 139/80 139/80 139/80 O2 Sat by Pulse 97 97 97 Oximetry 01/16/22 01/16/22 01/16/22 01:40 01:51 02:00 Temperature Pulse Rate 66 93 H 74 Pulse Rate [ Bilateral] Pulse Rate [ From Monitor] Respiratory 20 22 19 Rate Respiratory Rate [Bilateral ] Blood Pressure 139/80 139/80 142/84 O2 Sat by Pulse 98 99 98 Oximetry 01/16/22 01/16/22 01/16/22 02:11 02:21 02:30 Temperature Pulse Rate 75 75 81 Pulse Rate [ Bilateral] Pulse Rate [ From Monitor] Respiratory 20 19 22 Rate Respiratory Rate [Bilateral ] Blood Pressure 142/84 142/84 O2 Sat by Pulse 98 98 98 Oximetry 01/16/22 01/16/22 01/16/22 02:31 02:41 02:51 Temperature Pulse Rate 74 72 73 Pulse Rate [ Bilateral] Pulse Rate [ From Monitor] Respiratory 20 18 18 Rate Respiratory Rate [Bilateral ] Blood Pressure 142/84 142/84 142/84 O2 Sat by Pulse 98 98 98 Oximetry 01/16/22 01/16/22 01/16/22 03:00 03:10 03:21 Temperature Pulse Rate 84 73 68 Pulse Rate [ Bilateral] Pulse Rate [ From Monitor] Respiratory 23 19 18 Rate Respiratory Rate [Bilateral ] Blood Pressure 146/93 146/93 146/93 O2 Sat by Pulse 98 98 97 Oximetry 01/16/22 01/16/22 01/16/22 03:31 03:41 03:51 Temperature Pulse Rate 75 74 71 Pulse Rate [ Bilateral] Pulse Rate [ From Monitor] Respiratory 18 18 15 Rate Respiratory Rate [Bilateral ] Blood Pressure 146/93 146/93 146/93 O2 Sat by Pulse 97 96 97 Oximetry 01/16/22 01/16/22 01/16/22 04:00 04:10 04:11 Temperature 97.5 F L Pulse Rate 67 74 78 Pulse Rate [ 68 Bilateral] Pulse Rate [ From Monitor] Respiratory 23 22 16 Rate Respiratory 20 Rate [Bilateral ] Blood Pressure 130/89 130/89 O2 Sat by Pulse 98 98 99 Oximetry 01/16/22 01/16/22 01/16/22 04:21 04:31 04:41 Temperature Pulse Rate 74 82 67 Pulse Rate [ Bilateral] Pulse Rate [ From Monitor] Respiratory 19 24 19 Rate Respiratory Rate [Bilateral ] Blood Pressure 130/89 130/89 130/89 O2 Sat by Pulse 96 97 97 Oximetry 01/16/22 01/16/22 01/16/22 04:51 05:00 05:11 Temperature Pulse Rate 61 68 67 Pulse Rate [ Bilateral] Pulse Rate [ From Monitor] Respiratory 17 20 20 Rate Respiratory Rate [Bilateral ] Blood Pressure 130/89 132/80 132/80 O2 Sat by Pulse 97 98 97 Oximetry 01/16/22 01/16/22 01/16/22 05:21 05:30 05:40 Temperature Pulse Rate 66 63 71 Pulse Rate [ Bilateral] Pulse Rate [ From Monitor] Respiratory 20 20 17 Rate Respiratory Rate [Bilateral ] Blood Pressure 132/80 132/80 132/80 O2 Sat by Pulse 97 98 99 Oximetry 01/16/22 01/16/22 01/16/22 05:51 06:00 06:11 Temperature Pulse Rate 66 64 65 Pulse Rate [ Bilateral] Pulse Rate [ From Monitor] Respiratory 18 17 16 Rate Respiratory Rate [Bilateral ] Blood Pressure 132/80 130/79 130/79 O2 Sat by Pulse 97 96 96 Oximetry 01/16/22 01/16/22 01/16/22 06:21 06:30 06:40 Temperature Pulse Rate 64 63 64 Pulse Rate [ Bilateral] Pulse Rate [ From Monitor] Respiratory 17 20 17 Rate Respiratory Rate [Bilateral ] Blood Pressure 130/79 130/79 130/79 O2 Sat by Pulse 97 97 99 Oximetry 01/16/22 01/16/22 01/16/22 06:52 07:00 07:10 Temperature Pulse Rate 64 63 59 L Pulse Rate [ Bilateral] Pulse Rate [ From Monitor] Respiratory 18 17 15 Rate Respiratory Rate [Bilateral ] Blood Pressure 130/79 141/87 141/87 O2 Sat by Pulse 97 99 97 Oximetry 01/16/22 01/16/22 01/16/22 07:15 07:20 07:32 Temperature 97.5 F L Pulse Rate 63 86 Pulse Rate [ Bilateral] Pulse Rate [ From Monitor] Respiratory 17 20 Rate Respiratory Rate [Bilateral ] Blood Pressure 141/87 141/87 O2 Sat by Pulse 99 Oximetry 01/16/22 01/16/22 01/16/22 07:40 07:50 08:00 Temperature Pulse Rate 65 77 69 Pulse Rate [ Bilateral] Pulse Rate [ 69 From Monitor] Respiratory 21 21 19 Rate Respiratory Rate [Bilateral ] Blood Pressure 141/87 141/87 142/85 O2 Sat by Pulse 96 97 99 Oximetry 01/16/22 01/16/22 01/16/22 08:10 08:21 08:31 Temperature Pulse Rate 74 70 72 Pulse Rate [ Bilateral] Pulse Rate [ From Monitor] Respiratory 17 22 19 Rate Respiratory Rate [Bilateral ] Blood Pressure 142/85 142/85 142/85 O2 Sat by Pulse 97 97 98 Oximetry 01/16/22 01/16/22 01/16/22 08:41 09:06 09:07 Temperature Pulse Rate 63 62 Pulse Rate [ 65 Bilateral] Pulse Rate [ From Monitor] Respiratory 16 21 Rate Respiratory 21 Rate [Bilateral ] Blood Pressure 142/85 137/86 O2 Sat by Pulse 97 97 98 Oximetry 01/16/22 09:13 Temperature Pulse Rate Pulse Rate [ Bilateral] Pulse Rate [ From Monitor] Respiratory Rate Respiratory Rate [Bilateral ] Blood Pressure O2 Sat by Pulse 92 Oximetry Constitutional: alert, other (critically ill) Eyes: non-icteric ENT: oropharynx moist Neck: supple Effort: normal Ascultation: Bilateral: wheezes Tactile fremitus: Right: other Cardiovascular: other (RRR w/ no mrg) Gastrointestinal: normoactive bowel sounds, soft, non-tender, non-distended Integumentary: normal Extremities: no cyanosis, no edema Neurologic: normal mental status, non-focal exam, pupils equal and round Psychiatric: mood appropriate, affect normal CBC and BMP: 01/16/22 03:58 01/16/22 03:58 ABG, PT/INR, D-dimer: ABG ABG pH 7.425 pH Units (7.350-7.450) 01/15/22 05:20 ABG pCO2 43.6 mm Hg 01/15/22 05:20 ABG pO2 71.2 mm Hg (80.0-90.0) L 01/15/22 05:20 ABG O2 Saturation 97.6 % (95.0-99.0) 01/15/22 05:20 PT/INR, D-dimer PT 13.5 Sec. (12.2-14.9) 01/13/22 15:09 INR 0.93 (0.87-1.13) 01/13/22 15:09 D-Dimer 942.90 ng/mlDDU (0-234) H 01/13/22 15:09 Abnormal lab findings: Abnormal Labs 01/13/22 01/13/22 01/13/22 15:09 15:09 15:09 WBC RBC 5.26 H Hgb 11.3 L MCV 69 L MCH 22 L MCHC 31 L RDW 18.3 H Plt Count Lymph % (Auto) [place] % (Auto) 11.2 H Lymph # (Auto) Seg Neutrophils % D-Dimer 942.90 H ABG pO2 ABG HCO3 ABG Base Excess ABG Hemoglobin Oxyhemoglobin Sodium Chloride BUN 8 L Creatinine 0.6 L Glucose POC Glucose Magnesium Ferritin Alkaline Phosphatase 138 H Lactate Dehydrogenase C-Reactive Protein 01/13/22 01/14/22 01/14/22 15:45 11:07 11:07 WBC RBC Hgb MCV MCH MCHC RDW Plt Count Lymph % (Auto) [place] % (Auto) Lymph # (Auto) Seg Neutrophils % D-Dimer ABG pO2 ABG HCO3 ABG Base Excess ABG Hemoglobin 11.9 L Oxyhemoglobin 94.7 L Sodium Chloride BUN Creatinine Glucose POC Glucose Magnesium Ferritin 28.2 L Alkaline Phosphatase Lactate Dehydrogenase 215 H C-Reactive Protein 7.60 H 01/14/22 01/15/22 01/15/22 16:43 04:28 04:28 WBC RBC 5.72 H Hgb MCV 70 L MCH 21 L MCHC 30 L RDW 18.3 H Plt Count Lymph % (Auto) 11.3 L [place] % (Auto) Lymph # (Auto) 0.9 L Seg Neutrophils % 84.0 H D-Dimer ABG pO2 ABG HCO3 ABG Base Excess ABG Hemoglobin Oxyhemoglobin Sodium 131 L Chloride 96.2 L BUN Creatinine 0.6 L Glucose 133 H POC Glucose 122 H Magnesium Ferritin Alkaline Phosphatase 131 H Lactate Dehydrogenase C-Reactive Protein 01/15/22 01/15/22 01/15/22 05:20 11:05 17:28 WBC RBC Hgb MCV MCH MCHC RDW Plt Count Lymph % (Auto) [place] % (Auto) Lymph # (Auto) Seg Neutrophils % D-Dimer ABG pO2 71.2 L ABG HCO3 28.0 H ABG Base Excess 3.3 H ABG Hemoglobin 6.4 L Oxyhemoglobin 94.9 L Sodium Chloride BUN Creatinine Glucose POC Glucose 222 H 298 H Magnesium Ferritin Alkaline Phosphatase Lactate Dehydrogenase C-Reactive Protein 01/15/22 01/16/22 01/16/22 21:15 03:01 03:58 WBC 11.9 H RBC 5.74 H Hgb MCV 70 L MCH 21 L MCHC 30 L RDW 17.9 H Plt Count 461 H Lymph % (Auto) [place] % (Auto) Lymph # (Auto) Seg Neutrophils % D-Dimer ABG pO2 ABG HCO3 ABG Base Excess ABG Hemoglobin Oxyhemoglobin Sodium Chloride BUN Creatinine Glucose POC Glucose 112 H 159 H Magnesium Ferritin Alkaline Phosphatase Lactate Dehydrogenase C-Reactive Protein 01/16/22 01/16/22 03:58 05:41 WBC RBC Hgb MCV MCH MCHC RDW Plt Count Lymph % (Auto) [place] % (Auto) Lymph # (Auto) Seg Neutrophils % D-Dimer ABG pO2 ABG HCO3 ABG Base Excess ABG Hemoglobin Oxyhemoglobin Sodium 135 L Chloride BUN 25 H Creatinine 0.7 L Glucose 152 H POC Glucose 135 H Magnesium 2.70 H Ferritin Alkaline Phosphatase Lactate Dehydrogenase C-Reactive Protein
[2022-01-16] MEDS: AZITHROMYCIN/NS 500 MG/250 ML 500 MG/250 ML BAG IV SCH (11:06)
[2022-01-16] MEDS: hydroCHLOROthiazide 12.5 MG CAP PO SCH (11:06)
[2022-01-16] MEDS: cefTRIAXone/NS 2 GM/100 ML 2 GM/100 ML BAG IV SCH (11:06)
[2022-01-16] MEDS: LISINOPRIL 20 MG TAB PO SCH (11:06)
[2022-01-16] MEDS: FAMOTIDINE 20 MG TAB PO SCH ×2 (11:07→22:21)
--- NOTE | 2022-01-16 16:17 | Vascular Lab Report ---
DUPLEX DOPPLER LOWER EXTREMITY VEINS, BILATERAL INDICATION / CLINICAL INFORMATION: R/o DVT. TECHNIQUE: Duplex doppler imaging was performed through the veins of both lower extremities using venous debora lilliana and other maneuvers. COMPARISON: None available. FINDINGS: RIGHT COMMON FEMORAL VEIN: Negative. RIGHT FEMORAL VEIN: Negative. RIGHT POPLITEAL VEIN: Negative. RIGHT CALF VEINS: Negative. LEFT COMMON FEMORAL VEIN: Negative. LEFT FEMORAL VEIN: Negative. LEFT POPLITEAL VEIN: Negative. LEFT CALF VEINS: Negative. ADDITIONAL FINDINGS: None. IMPRESSION: 1. No sonographic evidence for DVT in either lower extremity. Signer Name: Vel Ellington MD Signed: 01/16/2022 4:13 PM Workstation Name: [id number]
--- NOTE | 2022-01-16 18:18 | Progress Note ---
<EDDChicaSELENAKayla - Last Filed: 01/16/22 18:16> Assessment and Plan Assessment and plan: This is a 46-year-old male with COPD, morbid obesity, ANNETTA with CPAP use and oxygen dependency at home admitted with COPD exacerbation Neuro: NAD -Reorientation as needed -Maintain sleep-wake cycle -As needed analgesia Cardiac: Hypertensive emergency -Presented with a blood pressure of 200/105 -As needed hydralazine and labetalol -Antihypertensive regimen: Hydrochlorothiazide, lisinopril -Blood pressure monitoring per protocol -Echocardiogram shows LVEF 55 to 60%, moderate concentric LVH Respiratory: Acute on chronic hypoxic respiratory failure, COPD exacerbation, h/o ANNETTA on CPAP -CCM consulted, appreciate recommendations -Presented with shortness of breath for 3 days, SPO2 in the 80s with 2 L of nasal cannula in the ED -S/p continuous BiPAP -Wean to salter -BiPAP as needed and nightly -Steroids -Pulmonary hygiene -SPO2 monitoring -S/p Lasix -Duoneb GI: Morbid obesity -24 hours +20 mL -PPI -Cardiac diet -Encouraged lifestyle and dietary modifications outpatient : NAD -Monitor intake and output -Renally dose medications -Avoid nephrotoxic medications -Trend BMP ID: COPD exacerbation, multifocal pneumonia -CT showed multifocal pneumonia -Antibiotic therapy with Zithromax and Rocephin -COVID-19 PCR negative -Flu PCR pending -Trend WBC and fever curve Endo: NAD -Avoid hypoglycemia Heme: Elevated D-dimer, leukocytosis -CTA chest shows no evidence of pulmonary embolism, bilateral patchy consolidation throughout the both lungs suggestive of multifocal pneumonia, mediastinal lymphadenopathy likely reactive -Bilateral lower extremity Doppler ultrasound negative for DVT -Trend CBC -Transfuse hemoglobin less than 7 -SCDs to BLE while in bed The high probability of a clinically significant, sudden or life threatening deterioration of the [multiple] system(s) required my full and direct attention, intervention and personal management. The aggregate critical care time was [60] minutes. This time is in addition to time spent performing reported procedures but includes the following: [x] Data Review and interpretation [x] Patient assessment and monitoring of vital signs [x] Documentation [x] Medication orders and management Disposition Plan: imcu Total Time Spent with Patient (Minutes): 60 History Interval history: This is a 46-year-old morbidly obese male with COPD, former tobacco abuse, oxyg en dependency at home, ANNETTA with CPAP use who presents the emergency department on 01/13 with shortness of breath ongoing for the past 3 days while being out of his home oxygen for about 3 days. Upon arrival to the emergency department patient was tachypneic and tachycardic and found to be wheezing and was placed on BiPAP with nebulizing treatments, D-dimer noted at 942, CXR showed CHF/volume overload with bibasilar pulmonary edema and CTA of the chest showed no evidence of pulm embolism, bilateral patchy consolidation throughout both lungs suggestive of multifocal pneumonia, likely reactive mediastinal lymphadenopathy. Patient was admitted to the hospital service on empiric antibiotics and BiPAP use for COPD exacerbation. Hospital Course to Date: 01/14: Very anxious this am s/p 1mg IV versed with positive response. Patient remains on Bipap at 60% Fio2, 16/01, SPO2 above 95%. COVID and Flu PCR pending. Continue empiric IV Abx and IV steroids. Pulmonary and ID consult pending. Patient unable to tolerate Bipap off at this am, unable to administer PO meds. PRN hydralazine added for hypertension. 01/15: Remains stable on the Bipap, still on 60% Fio2. COVID PCR negative. This am ABG noted. Wheezing and bibasilar crakles appreciated this morning. X1 dose of IV lasix ordered, will check BNP and 2D echo. Continue current IV Abx and wean O2 supplementation as tolerated for SPO2 above 88%. Pulmonary is also following. 01/16: Patient transferred to [facility] bed, stable off of BiPAP on salter at 6 L. Patient states that he uses 6 L at home. Patient stated that his noninvasive ventilation stopped working 2 weeks ago and he has not been able to get it serviced and states that he recently was granted disability insurance. 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 Hospitalist Physical - Constitutional Vitals: Temp Pulse Resp BP Pulse Ox 97.9 F 80 20 135/90 94 01/16/22 16:43 01/16/22 16:00 01/16/22 16:00 01/16/22 11:06 01/16/22 16:00 General appearance: Present: no acute distress, well-nourished, obese - EENT Eyes: Present: PERRL, EOM intact ENT: hearing intact, clear oral mucosa, dentition normal - Neck Neck: Present: normal ROM - Respiratory Respiratory effort: normal Respiratory: bilateral: diminished, wheezing - Cardiovascular Rhythm: regular Heart Sounds: Present: S1 & S2. Absent: systolic murmur, diastolic murmur - Extremities Extremities: no ischemia, pulses intact, pulses symmetrical, No edema, normal temperature, normal color Peripheral Pulses: within normal limits - Abdominal General gastrointestinal: soft, non-tender, non-distended, normal bowel sounds - Integumentary Integumentary: Present: clear, warm, dry - Psychiatric Psychiatric: appropriate mood/affect, cooperative - Neurologic Neurologic: CNII-XII intact, no focal deficits, moves all extremities - Allied Health Allied health notes reviewed: nursing, RT, social work HEART Score - HEART Score Troponin: Troponin T < 0.010 ng/mL (0.00-0.029) 01/13/22 15:09 Results - Labs CBC & Chem 7: 01/16/22 03:58 01/16/22 03:58 Labs: Laboratory Last Values WBC 11.9 K/mm3 (4.5-11.0) H 01/16/22 03:58 RBC 5.74 M/mm3 (3.65-5.03) H 01/16/22 03:58 Hgb 12.0 gm/dl (11.8-15.2) 01/16/22 03:58 Hct 40.3 % (35.5-45.6) 01/16/22 03:58 MCV 70 fl (84-94) L 01/16/22 03:58 MCH 21 pg (28-32) L 01/16/22 03:58 MCHC 30 % (32-34) L 01/16/22 03:58 RDW 17.9 % (13.2-15.2) H 01/16/22 03:58 Plt Count 461 K/mm3 (140-440) H 01/16/22 03:58 Lymph % (Auto) 11.3 % (13.4-35.0) L 01/15/22 04:28 [place] % (Auto) 4.2 % (0.0-7.3) 01/15/22 04:28 Eos % (Auto) 0.0 % (0.0-4.3) 01/15/22 04:28 Baso % (Auto) 0.5 % (0.0-1.8) 01/15/22 04:28 Lymph # (Auto) 0.9 K/mm3 (1.2-5.4) L 01/15/22 04:28 [place] # (Auto) 0.3 K/mm3 (0.0-0.8) 01/15/22 04:28 Eos # (Auto) 0.0 K/mm3 (0.0-0.4) 01/15/22 04:28 Baso # (Auto) 0.0 K/mm3 (0.0-0.1) 01/15/22 04:28 Seg Neutrophils % 84.0 % (40.0-70.0) H 01/15/22 04:28 Seg Neutrophils # 6.6 K/mm3 (1.8-7.7) 01/15/22 04:28 PT 13.5 Sec. (12.2-14.9) 01/13/22 15:09 INR 0.93 (0.87-1.13) 01/13/22 15:09 APTT 29.6 Sec. (24.2-36.6) 01/13/22 15:09 D-Dimer 942.90 ng/mlDDU (0-234) H 01/13/22 15:09 ABG pH 7.425 pH Units (7.350-7.450) 01/15/22 05:20 ABG pCO2 43.6 mm Hg 01/15/22 05:20 ABG pO2 71.2 mm Hg (80.0-90.0) L 01/15/22 05:20 ABG HCO3 28.0 mmol/L (20.0-26.0) H 01/15/22 05:20 ABG O2 Saturation 97.6 % (95.0-99.0) 01/15/22 05:20 ABG O2 Content 8.7 (0.0-44) 01/15/22 05:20 ABG Base Excess 3.3 mmol/L (-2.0-3.0) H 01/15/22 05:20 ABG Hemoglobin 6.4 gm/dl (14.0-18.0) L 01/15/22 05:20 ABG Carboxyhemoglobin 2.3 % (0.0-5.0) 01/15/22 05:20 ABG Methemoglobin 0.4 % (0.0-1.5) 01/15/22 05:20 Oxyhemoglobin 94.9 % (95.0-99.0) L 01/15/22 05:20 FiO2 30 % 01/15/22 05:20 Sodium 135 mmol/L (137-145) L 01/16/22 03:58 Potassium 4.9 mmol/L (3.6-5.0) 01/16/22 03:58 Chloride 101.3 mmol/L (98-107) 01/16/22 03:58 Carbon Dioxide 28 mmol/L (22-30) 01/16/22 03:58 Anion Gap 11 mmol/L 01/16/22 03:58 BUN 25 mg/dL (9-20) H 01/16/22 03:58 Creatinine 0.7 mg/dL (0.8-1.3) L 01/16/22 03:58 Estimated GFR > 60 ml/min 01/16/22 03:58 BUN/Creatinine Ratio 36 % 01/16/22 03:58 Glucose 152 mg/dL (75-100) H 01/16/22 03:58 POC Glucose 117 mg/dL (70-105) H 01/16/22 16:23 Calcium 8.9 mg/dL (8.4-10.2) 01/16/22 03:58 Phosphorus 4.50 mg/dL (2.5-4.5) 01/16/22 03:58 Magnesium 2.70 mg/dL (1.7-2.3) H 01/16/22 03:58 Ferritin 28.2 ng/mL (30.0-300.0) L 01/14/22 11:07 Total Bilirubin 0.30 mg/dL (0.1-1.2) 01/15/22 04:28 AST 12 units/L (5-40) 01/15/22 04:28 ALT 11 units/L (7-56) 01/15/22 04:28 Alkaline Phosphatase 131 units/L (35-129) H 01/15/22 04:28 Lactate Dehydrogenase 215 units/L (91-180) H 01/14/22 11:07 Troponin T < 0.010 ng/mL (0.00-0.029) 01/13/22 15:09 C-Reactive Protein 7.60 mg/dL (0.00-1.30) H 01/14/22 11:07 NT-Pro-B Natriuret Pep 28.03 pg/mL (0-450) 01/15/22 10:09 Total Protein 7.0 g/dL (6.3-8.2) 01/15/22 04:28 Albumin 4.0 g/dL (3.9-5) 01/15/22 04:28 Albumin/Globulin Ratio 1.3 % 01/15/22 04:28 Procalcitonin < 0.05 ng/mL (<0.15) 01/14/22 11:07 Urine Opiates Screen Negative 01/14/22 08:49 Urine Methadone Screen Negative 01/14/22 08:49 Ur Barbiturates Screen Negative 01/14/22 08:49 Ur Phencyclidine Scrn Negative 01/14/22 08:49 Ur Amphetamines Screen Negative 01/14/22 08:49 U Benzodiazepines Scrn Positive 01/14/22 08:49 Urine Cocaine Screen Negative 01/14/22 08:49 U Marijuana (THC) Screen Negative 01/14/22 08:49 Drugs of Abuse Note Disclamer 01/14/22 08:49 SARS-CoV-2 (PCR) Negative (Negative) 01/14/22 10:30 Multani/IV: Voiding Method Urinal Active Medications - Current Medications Current Medications: Generic Name Dose Route Start Last Admin Trade Name Freq PRN Reason Stop Dose Admin Acetaminophen 650 mg 01/13/22 23:58 Acetaminophen 325 Mg Tab PO Q6H PRN Pain MILD(1-3)/Fever >100.5/CHANG Albuterol/Ipratropium 1 ampul 01/14/22 00:00 01/16/22 16:35 Ipratropium/Albuterol Sulfate 3 Ml Ampul.Neb IH Not Given Q4HRT ZAKI Alprazolam 0.5 mg 01/14/22 08:22 01/15/22 09:58 Alprazolam 0.5 Mg Tab PO 0.5 mg Q8H PRN Administration Anxiety Enoxaparin Sodium 40 mg 01/14/22 22:00 01/15/22 21:08 Enoxaparin 40 Mg/0.4 Ml Inj SUB-Q 40 mg QHS ZAKI Administration Protocol Famotidine 20 mg 01/14/22 10:00 01/16/22 11:07 Famotidine 20 Mg Tab PO 20 mg BID ZAKI Administration Hydralazine HCl 10 mg 01/14/22 08:28 01/14/22 21:21 Hydralazine 20 Mg/1 Ml Inj IV 10 mg Q4HR PRN Administration Hypertension Hydrochlorothiazide 12.5 mg 01/15/22 11:00 01/16/22 11:06 Hydrochlorothiazide 12.5 Mg Cap PO 12.5 mg QDAY ZAKI Administration Ceftriaxone Sodium 2 gm in 100 mls @ 200 mls/hr 01/13/22 23:45 01/16/22 11:06 Rocephin/Ns 2 Gm/100 Ml IV 200 mls/hr Q24HR ZAKI Administration Protocol Azithromycin 500 mg in 250 mls @ 250 mls/hr 01/15/22 10:00 01/16/22 11:06 Zithromax/Ns IV 250 mls/hr Q24H ZAKI Administration Insulin Glargine 15 units 01/15/22 22:00 01/15/22 21:22 Insulin Glargine 100 Units/Ml SUB-Q 15 units QHS ZAKI Administration Insulin Human Regular 0 units 01/16/22 11:30 01/16/22 17:49 Insulin Regular, Human 100 Units/1 Ml SUB-Q Not Given ACHS [facility] Protocol Labetalol HCl 10 mg 01/14/22 16:00 Labetalol 20 Mg/4 Ml Inj IV Q4HR PRN Hypertension Lisinopril 20 mg 01/15/22 11:00 01/16/22 11:06 Lisinopril 20 Mg Tab PO 20 mg QDAY ZAKI Administration Magnesium Hydroxide 30 ml 01/13/22 23:58 Magnesium Hydroxide (Mom) Oral Liqd Udc PO Q4H PRN Constipation Methylprednisolone Sodium Succinate 80 mg 01/14/22 11:07 01/16/22 13:10 Methylprednisolone Sod Succinate 40 Mg/1 Ml Inj IV 80 mg Q8HR ZAKI Administration Ondansetron HCl 4 mg 01/13/22 23:31 Ondansetron 4 Mg/2 Ml Inj IV Q8H PRN Nausea And Vomiting Oxycodone/Acetaminophen 1 tab 01/13/22 23:34 Oxycodone /Acetaminophen 5-325mg Tab PO Q6H PRN Pain , Severe (7-10) Sodium Chloride 10 ml 01/13/22 23:31 01/16/22 05:47 Sodium Chloride 0.9% 10 Ml Flush Syringe IV 10 ml PRN PRN Administration LINE FLUSH Sodium Chloride 10 ml 01/14/22 10:00 01/16/22 11:07 Sodium Chloride 0.9% 10 Ml Flush Syringe IV 10 ml BID ZAKI Administration Nutrition/Malnutrition Assess - Dietary Evaluation Nutrition/Malnutrition Findings: Nutrition Notes Start: 01/14/22 10:38 Freq: Status: Active Protocol: Document 01/14/22 10:38 EVI (Rec: 01/14/22 10:49 EVI [id number]) Nutrition Notes Need for Assessment generated from: MD Order,rehab specialist,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 Labs/Tests 01/14: BUN 8, Crea 0.6. Pertinent Medications 01/14: Nutritionally unremarkable. Height 5 ft 8 in Weight 195.045 kg [place] Body Weight (kg) 70.00 BMI 65.3 Intake Prior to Admission Good Weight change and time frame Pt denies having loss body weight [employer]. Weight Status Morbidly Obese Subjective/Other Information RD consult for nutrition education assessment. No reports available on Pt's PO intake of meals at the time , will assess at F/U. Pt is on Bi-PaP+, O2 saturation @ 88%, according to Physical Assessment History notes. Pt still in critical condition , not a candidate for Nutrition Education at the time, will assess feasibility on F/U. Pt shows an unspecified area of concern for skin risk at the time, according to Physical Assessment History notes. Percent of energy/protein needs met: Prescribed Cardiac Diet provides for energy/protein needs (2,230 Kcal/85 g) during LOS. Burn Absent Trauma Absent GI Symptoms None Food Allergy No Skin Integrity/Comment Unspecified area of concern. Minimum of two criteria No Fluid Accumulation N/A Reduced Chemists Strength N/A (non-severe) Protein-Calorie Malnutrition N\A #1 Nutrition Diagnosis Overweight/obesity Etiology Uncertain, possibly associated with lifestyle factors. As Evidenced by Signs and Symptoms BMI: 195 Kg/m2. Is patient on ventilator? No Is Patient Ambulatory and/or Out of Bed No REE-([place]-confined to bed) 3373.920 Kcal/Kg value to use for calculation 10 Approximate Energy Requirements Using 1950 kcal/Kg Calculation Used for Recommendations Kcal/kg Additional Notes Protein: <2.5 g/Kg IBW; <175 g /day. Fluids: 1 ml/Kcal, or as per MD. Nutrition Intervention Change Diet Order: Continue Cardiac Diet as tolerated. Goal #1 Adjust the dietary intervention to better serve Pt's needs and clinical conditions during LOS. Follow-Up By: 01/20/22 Additional Comments Nutrition education will be provided at F/U, if feasible. Continue monitoring food tolerance, %PO intake of meals , and BM. <CLARE TATUM - Last Filed: 01/16/22 19:13> Assessment and Plan Assessment and plan: I saw and evaluated the patient. I agree with the findings and the plan of care as documented in the Nurse Practitioner's~note, with the following corrections and additions. Hospitalist Physical - Constitutional Vitals: Temp Pulse Resp BP Pulse Ox 97.9 F 80 20 135/90 94 01/16/22 16:43 01/16/22 16:00 01/16/22 16:00 01/16/22 11:06 01/16/22 16:00 HEART Score - HEART Score Troponin: Troponin T < 0.010 ng/mL (0.00-0.029) 01/13/22 15:09 Results - Labs CBC & Chem 7: 01/16/22 03:58 01/16/22 03:58 Labs: Laboratory Last Values WBC 11.9 K/mm3 (4.5-11.0) H 01/16/22 03:58 RBC 5.74 M/mm3 (3.65-5.03) H 01/16/22 03:58 Hgb 12.0 gm/dl (11.8-15.2) 01/16/22 03:58 Hct 40.3 % (35.5-45.6) 01/16/22 03:58 MCV 70 fl (84-94) L 01/16/22 03:58 MCH 21 pg (28-32) L 01/16/22 03:58 MCHC 30 % (32-34) L 01/16/22 03:58 RDW 17.9 % (13.2-15.2) H 01/16/22 03:58 Plt Count 461 K/mm3 (140-440) H 01/16/22 03:58 Lymph % (Auto) 11.3 % (13.4-35.0) L 01/15/22 04:28 [place] % (Auto) 4.2 % (0.0-7.3) 01/15/22 04:28 Eos % (Auto) 0.0 % (0.0-4.3) 01/15/22 04:28 Baso % (Auto) 0.5 % (0.0-1.8) 01/15/22 04:28 Lymph # (Auto) 0.9 K/mm3 (1.2-5.4) L 01/15/22 04:28 [place] # (Auto) 0.3 K/mm3 (0.0-0.8) 01/15/22 04:28 Eos # (Auto) 0.0 K/mm3 (0.0-0.4) 01/15/22 04:28 Baso # (Auto) 0.0 K/mm3 (0.0-0.1) 01/15/22 04:28 Seg Neutrophils % 84.0 % (40.0-70.0) H 01/15/22 04:28 Seg Neutrophils # 6.6 K/mm3 (1.8-7.7) 01/15/22 04:28 PT 13.5 Sec. (12.2-14.9) 01/13/22 15:09 INR 0.93 (0.87-1.13) 01/13/22 15:09 APTT 29.6 Sec. (24.2-36.6) 01/13/22 15:09 D-Dimer 942.90 ng/mlDDU (0-234) H 01/13/22 15:09 ABG pH 7.425 pH Units (7.350-7.450) 01/15/22 05:20 ABG pCO2 43.6 mm Hg 01/15/22 05:20 ABG pO2 71.2 mm Hg (80.0-90.0) L 01/15/22 05:20 ABG HCO3 28.0 mmol/L (20.0-26.0) H 01/15/22 05:20 ABG O2 Saturation 97.6 % (95.0-99.0) 01/15/22 05:20 ABG O2 Content 8.7 (0.0-44) 01/15/22 05:20 ABG Base Excess 3.3 mmol/L (-2.0-3.0) H 01/15/22 05:20 ABG Hemoglobin 6.4 gm/dl (14.0-18.0) L 01/15/22 05:20 ABG Carboxyhemoglobin 2.3 % (0.0-5.0) 01/15/22 05:20 ABG Methemoglobin 0.4 % (0.0-1.5) 01/15/22 05:20 Oxyhemoglobin 94.9 % (95.0-99.0) L 01/15/22 05:20 FiO2 30 % 01/15/22 05:20 Sodium 135 mmol/L (137-145) L 01/16/22 03:58 Potassium 4.9 mmol/L (3.6-5.0) 01/16/22 03:58 Chloride 101.3 mmol/L (98-107) 01/16/22 03:58 Carbon Dioxide 28 mmol/L (22-30) 01/16/22 03:58 Anion Gap 11 mmol/L 01/16/22 03:58 BUN 25 mg/dL (9-20) H 01/16/22 03:58 Creatinine 0.7 mg/dL (0.8-1.3) L 01/16/22 03:58 Estimated GFR > 60 ml/min 01/16/22 03:58 BUN/Creatinine Ratio 36 % 01/16/22 03:58 Glucose 152 mg/dL (75-100) H 01/16/22 03:58 POC Glucose 117 mg/dL (70-105) H 01/16/22 16:23 Calcium 8.9 mg/dL (8.4-10.2) 01/16/22 03:58 Phosphorus 4.50 mg/dL (2.5-4.5) 01/16/22 03:58 Magnesium 2.70 mg/dL (1.7-2.3) H 01/16/22 03:58 Ferritin 28.2 ng/mL (30.0-300.0) L 01/14/22 11:07 Total Bilirubin 0.30 mg/dL (0.1-1.2) 01/15/22 04:28 AST 12 units/L (5-40) 01/15/22 04:28 ALT 11 units/L (7-56) 01/15/22 04:28 Alkaline Phosphatase 131 units/L (35-129) H 01/15/22 04:28 Lactate Dehydrogenase 215 units/L (91-180) H 01/14/22 11:07 Troponin T < 0.010 ng/mL (0.00-0.029) 01/13/22 15:09 C-Reactive Protein 7.60 mg/dL (0.00-1.30) H 01/14/22 11:07 NT-Pro-B Natriuret Pep 28.03 pg/mL (0-450) 01/15/22 10:09 Total Protein 7.0 g/dL (6.3-8.2) 01/15/22 04:28 Albumin 4.0 g/dL (3.9-5) 01/15/22 04:28 Albumin/Globulin Ratio 1.3 % 01/15/22 04:28 Procalcitonin < 0.05 ng/mL (<0.15) 01/14/22 11:07 Urine Opiates Screen Negative 01/14/22 08:49 Urine Methadone Screen Negative 01/14/22 08:49 Ur Barbiturates Screen Negative 01/14/22 08:49 Ur Phencyclidine Scrn Negative 01/14/22 08:49 Ur Amphetamines Screen Negative 01/14/22 08:49 U Benzodiazepines Scrn Positive 01/14/22 08:49 Urine Cocaine Screen Negative 01/14/22 08:49 U Marijuana (THC) Screen Negative 01/14/22 08:49 Drugs of Abuse Note Disclamer 01/14/22 08:49 SARS-CoV-2 (PCR) Negative (Negative) 01/14/22 10:30 Multani/IV: Voiding Method Urinal Active Medications - Current Medications Current Medications: Generic Name Dose Route Start Last Admin Trade Name Freq PRN Reason Stop Dose Admin Acetaminophen 650 mg 01/13/22 23:58 Acetaminophen 325 Mg Tab PO Q6H PRN Pain MILD(1-3)/Fever >100.5/CHANG Albuterol/Ipratropium 1 ampul 01/14/22 00:00 01/16/22 16:35 Ipratropium/Albuterol Sulfate 3 Ml Ampul.Neb IH Not Given Q4HRT ZAKI Alprazolam 0.5 mg 01/14/22 08:22 01/15/22 09:58 Alprazolam 0.5 Mg Tab PO 0.5 mg Q8H PRN Administration Anxiety Enoxaparin Sodium 40 mg 01/14/22 22:00 01/15/22 21:08 Enoxaparin 40 Mg/0.4 Ml Inj SUB-Q 40 mg QHS [facility] Administration Protocol Famotidine 20 mg 01/14/22 10:00 01/16/22 11:07 Famotidine 20 Mg Tab PO 20 mg BID ZAKI Administration Hydralazine HCl 10 mg 01/14/22 08:28 01/14/22 21:21 Hydralazine 20 Mg/1 Ml Inj IV 10 mg Q4HR PRN Administration Hypertension Hydrochlorothiazide 12.5 mg 01/15/22 11:00 01/16/22 11:06 Hydrochlorothiazide 12.5 Mg Cap PO 12.5 mg QDAY ZAKI Administration Ceftriaxone Sodium 2 gm in 100 mls @ 200 mls/hr 01/13/22 23:45 01/16/22 11:06 Rocephin/Ns 2 Gm/100 Ml IV 200 mls/hr Q24HR ZAKI Administration Protocol Azithromycin 500 mg in 250 mls @ 250 mls/hr 01/15/22 10:00 01/16/22 11:06 Zithromax/Ns IV 250 mls/hr Q24H ZAKI Administration Insulin Glargine 15 units 01/15/22 22:00 01/15/22 21:22 Insulin Glargine 100 Units/Ml SUB-Q 15 units QHS [facility] Administration Insulin Human Regular 0 units 01/16/22 11:30 01/16/22 17:49 Insulin Regular, Human 100 Units/1 Ml SUB-Q Not Given ACHS [facility] Protocol Labetalol HCl 10 mg 01/14/22 16:00 Labetalol 20 Mg/4 Ml Inj IV Q4HR PRN Hypertension Lisinopril 20 mg 01/15/22 11:00 01/16/22 11:06 Lisinopril 20 Mg Tab PO 20 mg QDAY ZAKI Administration Magnesium Hydroxide 30 ml 01/13/22 23:58 Magnesium Hydroxide (Mom) Oral Liqd Udc PO Q4H PRN Constipation Methylprednisolone Sodium Succinate 80 mg 01/14/22 11:07 01/16/22 13:10 Methylprednisolone Sod Succinate 40 Mg/1 Ml Inj IV 80 mg Q8HR ZAKI Administration Ondansetron HCl 4 mg 01/13/22 23:31 Ondansetron 4 Mg/2 Ml Inj IV Q8H PRN Nausea And Vomiting Oxycodone/Acetaminophen 1 tab 01/13/22 23:34 Oxycodone /Acetaminophen 5-325mg Tab PO Q6H PRN Pain , Severe (7-10) Sodium Chloride 10 ml 01/13/22 23:31 01/16/22 05:47 Sodium Chloride 0.9% 10 Ml Flush Syringe IV 10 ml PRN PRN Administration LINE FLUSH Sodium Chloride 10 ml 01/14/22 10:00 01/16/22 11:07 Sodium Chloride 0.9% 10 Ml Flush Syringe IV 10 ml BID ZAKI Administration Nutrition/Malnutrition Assess - Dietary Evaluation Nutrition/Malnutrition Findings: Nutrition Notes Start: 01/14/22 10:38 Freq: Status: Active Protocol: Document 01/14/22 10:38 EVI (Rec: 01/14/22 10:49 EVI [id number]) Nutrition Notes Need for Assessment generated from: MD Order,rehab specialist,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 Labs/Tests 01/14: BUN 8, Crea 0.6. Pertinent Medications 01/14: Nutritionally unremarkable. Height 5 ft 8 in Weight 195.045 kg [place] Body Weight (kg) 70.00 BMI 65.3 Intake Prior to Admission Good Weight change and time frame Pt denies having loss body weight [employer]. Weight Status Morbidly Obese Subjective/Other Information RD consult for nutrition education assessment. No reports available on Pt's PO intake of meals at the time , will assess at F/U. Pt is on Bi-PaP+, O2 saturation @ 88%, according to Physical Assessment History notes. Pt still in critical condition , not a candidate for Nutrition Education at the time, will assess feasibility on F/U. Pt shows an unspecified area of concern for skin risk at the time, according to Physical Assessment History notes. Percent of energy/protein needs met: Prescribed Cardiac Diet provides for energy/protein needs (2,230 Kcal/85 g) during LOS. Burn Absent Trauma Absent GI Symptoms None Food Allergy No Skin Integrity/Comment Unspecified area of concern. Minimum of two criteria No Fluid Accumulation N/A Reduced Chemists Strength N/A (non-severe) Protein-Calorie Malnutrition N\A #1 Nutrition Diagnosis Overweight/obesity Etiology Uncertain, possibly associated with lifestyle factors. As Evidenced by Signs and Symptoms BMI: 195 Kg/m2. Is patient on ventilator? No Is Patient Ambulatory and/or Out of Bed No REE-([place]-confined to bed) 3373.920 Kcal/Kg value to use for calculation 10 Approximate Energy Requirements Using 1950 kcal/Kg Calculation Used for Recommendations Kcal/kg Additional Notes Protein: <2.5 g/Kg IBW; <175 g /day. Fluids: 1 ml/Kcal, or as per MD. Nutrition Intervention Change Diet Order: Continue Cardiac Diet as tolerated. Goal #1 Adjust the dietary intervention to better serve Pt's needs and clinical conditions during LOS. Follow-Up By: 01/20/22 Additional Comments Nutrition education will be provided at F/U, if feasible. Continue monitoring food tolerance, %PO intake of meals , and BM.
[2022-01-16] MEDS: ENOXAPARIN 40 MG/0.4 ML INJ SUB-Q SCH (22:20)
[2022-01-16] MEDS: INSULIN GLARGINE 100 UNITS/ML SUB-Q SCH (22:21)
[2022-01-17] MEDS: IPRATROPIUM/ALBUTEROL SULFATE 3 ML AMPUL.NEB IH SCH ×6 (00:27→20:10)
[2022-01-17] MEDS ORDERED: NORepinephrine/NS 8 MG-250 ML 8 MG/250 ML INFUS..BTL IV SCH (04:00)
[2022-01-17] MEDS ORDERED: ETOMIDATE 20 MG/10 ML INJ IV ONE (04:35)
[2022-01-17] MEDS ORDERED: ROCURONIUM 50 MG/5 ML INJ IV ONE (04:35)
[2022-01-17] MEDS: methylPREDNISolone Sod Succinate 40 MG/1 ML INJ IV SCH ×3 (06:00→21:38)
[2022-01-17] MEDS: cefTRIAXone/NS 2 GM/100 ML 2 GM/100 ML BAG IV SCH (09:01)
[2022-01-17] MEDS: FAMOTIDINE 20 MG TAB PO SCH ×2 (09:02→21:38)
[2022-01-17] MEDS: hydroCHLOROthiazide 12.5 MG CAP PO SCH (09:02)
[2022-01-17] MEDS: AZITHROMYCIN/NS 500 MG/250 ML 500 MG/250 ML BAG IV SCH (09:02)
[2022-01-17] MEDS: LISINOPRIL 20 MG TAB PO SCH (09:03)
[2022-01-17] MEDS: INSULIN REGULAR, HUMAN 100 UNITS/1 ML SUB-Q SCH ×4 (09:25→21:37)
--- NOTE | 2022-01-17 11:24 | Progress Note ---
Assessment and Plan 46 y/o morbidly obese male with acute on chronic respiratory failure, COPD exacerbation and ANNETTA with likely OHS as well. 01/17/22: Per patient on 5-6 liters at home and thinks his concentrator goes to 6. Needs a higher concentrator. Will speak with CM about this. Per rounds, Medicaid is active and info will be sent to DME to service his current machine. Ok with dropping steroids down today to 40q8. Continue scheduled nebs. Would also be ok with changing to oral abx therapy as well. No objection to floor transfer if feasible. Hopeful discharge in the next 48-72 hours. 1. Continue steroids 2. Wean FiO2 as tolerated, baseline flow of oxygen at home is about 5-6 3. Daily net negative volume state 4. Scheduled nebs 5. weight loss if possible Subjective Date of service: 01/17/22 Principal diagnosis: COPD exac. Interval history: No acute events. On Salter now. Looks and feels better. Wore NIV last night. Objective Vital Signs - 12hr 01/16/22 01/16/22 01/16/22 23:31 23:41 23:51 Temperature Pulse Rate 70 66 72 Pulse Rate [ Bilateral] Pulse Rate [ From Monitor] Respiratory 22 17 18 Rate Respiratory Rate [Bilateral ] Blood Pressure 150/80 150/80 150/80 O2 Sat by Pulse 100 96 97 Oximetry 01/17/22 01/17/22 01/17/22 00:00 00:11 00:21 Temperature 98 F Pulse Rate 68 69 69 Pulse Rate [ Bilateral] Pulse Rate [ 70 From Monitor] Respiratory 20 21 20 Rate Respiratory Rate [Bilateral ] Blood Pressure 151/86 151/86 151/86 O2 Sat by Pulse 98 98 98 Oximetry 01/17/22 01/17/22 01/17/22 00:27 00:31 00:41 Temperature Pulse Rate 66 68 76 Pulse Rate [ 69 Bilateral] Pulse Rate [ From Monitor] Respiratory 22 18 17 Rate Respiratory 20 Rate [Bilateral ] Blood Pressure 151/86 150/80 150/80 O2 Sat by Pulse 97 97 95 Oximetry 01/17/22 01/17/22 01/17/22 00:51 01:00 01:11 Temperature Pulse Rate 65 66 72 Pulse Rate [ Bilateral] Pulse Rate [ From Monitor] Respiratory 19 21 19 Rate Respiratory Rate [Bilateral ] Blood Pressure 150/80 149/83 149/83 O2 Sat by Pulse 97 91 97 Oximetry 01/17/22 01/17/22 01/17/22 01:21 01:31 01:41 Temperature Pulse Rate 82 75 80 Pulse Rate [ Bilateral] Pulse Rate [ From Monitor] Respiratory 19 19 18 Rate Respiratory Rate [Bilateral ] Blood Pressure 149/83 149/83 149/83 O2 Sat by Pulse 97 97 97 Oximetry 01/17/22 01/17/22 01/17/22 01:51 02:00 02:11 Temperature Pulse Rate 73 72 81 Pulse Rate [ Bilateral] Pulse Rate [ From Monitor] Respiratory 20 19 22 Rate Respiratory Rate [Bilateral ] Blood Pressure 149/83 159/84 159/84 O2 Sat by Pulse 98 94 98 Oximetry 01/17/22 01/17/22 01/17/22 02:21 02:31 02:41 Temperature Pulse Rate 73 71 73 Pulse Rate [ Bilateral] Pulse Rate [ From Monitor] Respiratory 19 19 18 Rate Respiratory Rate [Bilateral ] Blood Pressure 159/84 159/84 159/84 O2 Sat by Pulse 98 98 98 Oximetry 01/17/22 01/17/22 01/17/22 02:51 03:00 03:11 Temperature Pulse Rate 68 78 88 Pulse Rate [ Bilateral] Pulse Rate [ From Monitor] Respiratory 19 22 15 Rate Respiratory Rate [Bilateral ] Blood Pressure 159/84 163/90 163/90 O2 Sat by Pulse 98 93 99 Oximetry 01/17/22 01/17/22 01/17/22 03:21 03:31 03:41 Temperature Pulse Rate 73 66 71 Pulse Rate [ Bilateral] Pulse Rate [ From Monitor] Respiratory 20 17 19 Rate Respiratory Rate [Bilateral ] Blood Pressure 163/90 163/90 163/90 O2 Sat by Pulse 99 96 97 Oximetry 01/17/22 01/17/22 01/17/22 03:51 04:00 04:11 Temperature 98 F Pulse Rate 65 65 67 Pulse Rate [ Bilateral] Pulse Rate [ 70 From Monitor] Respiratory 18 25 H 17 Rate Respiratory Rate [Bilateral ] Blood Pressure 163/90 135/82 135/82 O2 Sat by Pulse 98 90 97 Oximetry 01/17/22 01/17/22 01/17/22 04:21 04:31 04:41 Temperature Pulse Rate 65 65 70 Pulse Rate [ Bilateral] Pulse Rate [ From Monitor] Respiratory 18 17 20 Rate Respiratory Rate [Bilateral ] Blood Pressure 135/82 135/82 135/82 O2 Sat by Pulse 98 99 98 Oximetry 01/17/22 01/17/22 01/17/22 04:44 04:51 05:00 Temperature Pulse Rate 73 92 H Pulse Rate [ 72 Bilateral] Pulse Rate [ From Monitor] Respiratory 17 17 Rate Respiratory 20 Rate [Bilateral ] Blood Pressure 135/82 130/81 O2 Sat by Pulse 99 97 Oximetry 01/17/22 01/17/22 01/17/22 05:11 05:20 05:30 Temperature Pulse Rate 76 70 73 Pulse Rate [ Bilateral] Pulse Rate [ From Monitor] Respiratory 30 H 21 21 Rate Respiratory Rate [Bilateral ] Blood Pressure 130/81 130/81 O2 Sat by Pulse 96 97 96 Oximetry 01/17/22 01/17/22 01/17/22 05:40 05:50 06:00 Temperature Pulse Rate 82 80 80 Pulse Rate [ Bilateral] Pulse Rate [ From Monitor] Respiratory 22 20 19 Rate Respiratory Rate [Bilateral ] Blood Pressure 130/81 130/81 130/81 O2 Sat by Pulse 96 97 95 Oximetry 01/17/22 01/17/22 01/17/22 06:10 06:20 06:30 Temperature Pulse Rate 66 69 72 Pulse Rate [ Bilateral] Pulse Rate [ From Monitor] Respiratory 19 19 18 Rate Respiratory Rate [Bilateral ] Blood Pressure 135/88 135/88 135/88 O2 Sat by Pulse 96 96 96 Oximetry 01/17/22 01/17/22 01/17/22 06:40 06:50 07:00 Temperature Pulse Rate 67 63 65 Pulse Rate [ Bilateral] Pulse Rate [ From Monitor] Respiratory 18 17 17 Rate Respiratory Rate [Bilateral ] Blood Pressure 135/88 135/88 151/88 O2 Sat by Pulse 97 96 94 Oximetry 01/17/22 01/17/22 01/17/22 07:10 07:19 07:20 Temperature 97.8 F Pulse Rate 73 71 Pulse Rate [ Bilateral] Pulse Rate [ From Monitor] Respiratory 21 22 Rate Respiratory Rate [Bilateral ] Blood Pressure 151/88 151/88 O2 Sat by Pulse 97 97 Oximetry 01/17/22 01/17/22 01/17/22 07:22 07:30 07:40 Temperature Pulse Rate 76 95 H 87 Pulse Rate [ Bilateral] Pulse Rate [ From Monitor] Respiratory 24 23 Rate Respiratory Rate [Bilateral ] Blood Pressure 151/88 151/88 O2 Sat by Pulse 97 92 Oximetry 01/17/22 01/17/22 01/17/22 07:50 08:00 08:10 Temperature Pulse Rate 98 H 104 H 98 H Pulse Rate [ Bilateral] Pulse Rate [ 103 H From Monitor] Respiratory 29 H 27 H 24 Rate Respiratory Rate [Bilateral ] Blood Pressure 151/88 151/88 136/91 O2 Sat by Pulse 89 91 95 Oximetry 01/17/22 01/17/22 01/17/22 08:20 08:30 08:40 Temperature Pulse Rate 89 100 H 98 H Pulse Rate [ Bilateral] Pulse Rate [ From Monitor] Respiratory 23 19 26 H Rate Respiratory Rate [Bilateral ] Blood Pressure 136/91 136/91 136/91 O2 Sat by Pulse 99 91 90 Oximetry 01/17/22 01/17/22 01/17/22 08:50 09:00 09:03 Temperature Pulse Rate 100 H 99 H 98 H Pulse Rate [ Bilateral] Pulse Rate [ From Monitor] Respiratory 23 29 H Rate Respiratory Rate [Bilateral ] Blood Pressure 136/91 136/91 135/90 O2 Sat by Pulse 87 87 Oximetry 01/17/22 01/17/22 01/17/22 09:10 09:20 09:30 Temperature Pulse Rate 91 H 88 92 H Pulse Rate [ Bilateral] Pulse Rate [ From Monitor] Respiratory 20 19 13 Rate Respiratory Rate [Bilateral ] Blood Pressure 135/90 135/90 135/90 O2 Sat by Pulse 89 88 88 Oximetry 01/17/22 01/17/22 01/17/22 09:40 09:50 10:00 Temperature Pulse Rate 88 89 82 Pulse Rate [ Bilateral] Pulse Rate [ From Monitor] Respiratory 25 H 27 H 23 Rate Respiratory Rate [Bilateral ] Blood Pressure 135/90 135/90 140/95 O2 Sat by Pulse 90 88 87 Oximetry 01/17/22 01/17/22 01/17/22 10:16 10:30 10:46 Temperature Pulse Rate 83 74 92 H Pulse Rate [ Bilateral] Pulse Rate [ From Monitor] Respiratory 34 H 23 28 H Rate Respiratory Rate [Bilateral ] Blood Pressure 140/95 140/95 140/95 O2 Sat by Pulse 90 93 91 Oximetry 01/17/22 11:00 Temperature Pulse Rate 83 Pulse Rate [ Bilateral] Pulse Rate [ From Monitor] Respiratory 28 H Rate Respiratory Rate [Bilateral ] Blood Pressure 156/94 O2 Sat by Pulse 88 Oximetry Constitutional: alert, other (critically ill) Eyes: non-icteric ENT: oropharynx moist Neck: supple Effort: normal Ascultation: Bilateral: wheezes Tactile fremitus: Right: other Cardiovascular: other (RRR w/ no mrg) Gastrointestinal: normoactive bowel sounds, soft, non-tender, non-distended Integumentary: normal Extremities: no cyanosis, no edema Neurologic: normal mental status, non-focal exam, pupils equal and round Psychiatric: mood appropriate, affect normal CBC and BMP: 01/16/22 03:58 01/16/22 03:58 ABG, PT/INR, D-dimer: ABG ABG pH 7.425 pH Units (7.350-7.450) 01/15/22 05:20 ABG pCO2 43.6 mm Hg 01/15/22 05:20 ABG pO2 71.2 mm Hg (80.0-90.0) L 01/15/22 05:20 ABG O2 Saturation 97.6 % (95.0-99.0) 01/15/22 05:20 PT/INR, D-dimer PT 13.5 Sec. (12.2-14.9) 01/13/22 15:09 INR 0.93 (0.87-1.13) 01/13/22 15:09 D-Dimer 942.90 ng/mlDDU (0-234) H 01/13/22 15:09 Abnormal lab findings: Abnormal Labs 01/13/22 01/13/22 01/13/22 15:09 15:09 15:09 WBC RBC 5.26 H Hgb 11.3 L MCV 69 L MCH 22 L MCHC 31 L RDW 18.3 H Plt Count Lymph % (Auto) [place] % (Auto) 11.2 H Lymph # (Auto) Seg Neutrophils % D-Dimer 942.90 H ABG pO2 ABG HCO3 ABG Base Excess ABG Hemoglobin Oxyhemoglobin Sodium Chloride BUN 8 L Creatinine 0.6 L Glucose POC Glucose Magnesium Ferritin Alkaline Phosphatase 138 H Lactate Dehydrogenase C-Reactive Protein 01/13/22 01/14/22 01/14/22 15:45 11:07 11:07 WBC RBC Hgb MCV MCH MCHC RDW Plt Count Lymph % (Auto) [place] % (Auto) Lymph # (Auto) Seg Neutrophils % D-Dimer ABG pO2 ABG HCO3 ABG Base Excess ABG Hemoglobin 11.9 L Oxyhemoglobin 94.7 L Sodium Chloride BUN Creatinine Glucose POC Glucose Magnesium Ferritin 28.2 L Alkaline Phosphatase Lactate Dehydrogenase 215 H C-Reactive Protein 7.60 H 01/14/22 01/15/22 01/15/22 16:43 04:28 04:28 WBC RBC 5.72 H Hgb MCV 70 L MCH 21 L MCHC 30 L RDW 18.3 H Plt Count Lymph % (Auto) 11.3 L [place] % (Auto) Lymph # (Auto) 0.9 L Seg Neutrophils % 84.0 H D-Dimer ABG pO2 ABG HCO3 ABG Base Excess ABG Hemoglobin Oxyhemoglobin Sodium 131 L Chloride 96.2 L BUN Creatinine 0.6 L Glucose 133 H POC Glucose 122 H Magnesium Ferritin Alkaline Phosphatase 131 H Lactate Dehydrogenase C-Reactive Protein 01/15/22 01/15/22 01/15/22 05:20 11:05 17:28 WBC RBC Hgb MCV MCH MCHC RDW Plt Count Lymph % (Auto) [place] % (Auto) Lymph # (Auto) Seg Neutrophils % D-Dimer ABG pO2 71.2 L ABG HCO3 28.0 H ABG Base Excess 3.3 H ABG Hemoglobin 6.4 L Oxyhemoglobin 94.9 L Sodium Chloride BUN Creatinine Glucose POC Glucose 222 H 298 H Magnesium Ferritin Alkaline Phosphatase Lactate Dehydrogenase C-Reactive Protein 01/15/22 01/16/22 01/16/22 21:15 03:01 03:58 WBC 11.9 H RBC 5.74 H Hgb MCV 70 L MCH 21 L MCHC 30 L RDW 17.9 H Plt Count 461 H Lymph % (Auto) [place] % (Auto) Lymph # (Auto) Seg Neutrophils % D-Dimer ABG pO2 ABG HCO3 ABG Base Excess ABG Hemoglobin Oxyhemoglobin Sodium Chloride BUN Creatinine Glucose POC Glucose 112 H 159 H Magnesium Ferritin Alkaline Phosphatase Lactate Dehydrogenase C-Reactive Protein 01/16/22 01/16/22 01/16/22 03:58 05:41 11:39 WBC RBC Hgb MCV MCH MCHC RDW Plt Count Lymph % (Auto) [place] % (Auto) Lymph # (Auto) Seg Neutrophils % D-Dimer ABG pO2 ABG HCO3 ABG Base Excess ABG Hemoglobin Oxyhemoglobin Sodium 135 L Chloride BUN 25 H Creatinine 0.7 L Glucose 152 H POC Glucose 135 H 203 H Magnesium 2.70 H Ferritin Alkaline Phosphatase Lactate Dehydrogenase C-Reactive Protein 08/22/22 08/22/22 16:23 22:17 WBC RBC Hgb MCV MCH MCHC RDW Plt Count Lymph % (Auto) [place] % (Auto) Lymph # (Auto) Seg Neutrophils % D-Dimer ABG pO2 ABG HCO3 ABG Base Excess ABG Hemoglobin Oxyhemoglobin Sodium Chloride BUN Creatinine Glucose POC Glucose 117 H 118 H Magnesium Ferritin Alkaline Phosphatase Lactate Dehydrogenase C-Reactive Protein
--- NOTE | 2022-01-17 13:37 | Electrocardiograph Report ---
[facility] Test Date: 2022-01-13 Test Time: 14:01:08 Pat Name: RENEE VAZQUEZ Department: Room: A264 Gender: M Bean Picker: [phone] : [phone] Requested By: WARREN REILLY Order Number: [id number] Reading MD: Yuliet Bocanegra Measurements Intervals [place] Rate: 96 P: 23 GA: 183 QRS: 2 QRSD: 90 T: 49 QT: 376 QTc: 474 Interpretive Statements Sinus rhythm Possible anteroseptal infarct, age indeterminate Compared to ECG 04/14/2021 23:29:19 No significant change Electronically Signed On 01-17-2022 13:36:56 EDT by Yuliet Bocanegra
--- NOTE | 2022-01-17 15:16 | Discharge Summary ---
Providers - Providers Date of Admission: 01/13/22 23:34 Date of discharge: 01/17/22 Attending physician: MONIQUE BINGHAM MD 01/13/22 15:05 Consult to Case Management [CONS] Stat Services Needed at Discharge: Home O2 Notified:: social insurance analyst for discharge plan for oxygen dependent with no insurance 01/13/22 23:58 Consult to Physician [CONS] Routine Comment: Consulting Provider: DENISE BULLARD Physician Instructions: Reason For Exam: PUI 01/13/22 23:59 Consult to Dietitian/Nutrition [CONS] Routine Physician Instructions: Reason For Exam: Reason for Consult: Diet education Consult to Physician [CONS] Routine Comment: Consulting Provider: INEZ LIZAMA Physician Instructions: Reason For Exam: Acute Respiratory Failure Primary care physician: [employer] Hospitalization Reason for admission: shortness of breath Condition: Stable Hospital course: History Interval history: This is a 46-year-old morbidly obese male with COPD, former tobacco abuse, oxygen dependency at home, ANNETTA with CPAP use who presents the emergency department on 01/13 with shortness of breath ongoing for the past 3 days while being out of his home oxygen for about 3 days. Upon arrival to the emergency department patient was tachypneic and tachycardic and found to be wheezing and was placed on BiPAP with nebulizing treatments, D-dimer noted at 942, CXR showed CHF/volume overload with bibasilar pulmonary edema and CTA of the chest showed no evidence of pulm embolism, bilateral patchy consolidation throughout both lungs suggestive of multifocal pneumonia, likely reactive mediastinal lymphadenopathy. Patient was admitted to the hospital service on empiric antibi otics and BiPAP use for COPD exacerbation. Hospital Course to Date: 01/14: Very anxious this am s/p 1mg IV versed with positive response. Patient remains on Bipap at 60% Fio2, 16/01, SPO2 above 95%. COVID and Flu PCR pending. Continue empiric IV Abx and IV steroids. Pulmonary and ID consult pending. Patient unable to tolerate Bipap off at this am, unable to administer PO meds. PRN hydralazine added for hypertension. 01/15: Remains stable on the Bipap, still on 60% Fio2. COVID PCR negative. This am ABG noted. Wheezing and bibasilar crakles appreciated this morning. X1 dose of IV lasix ordered, will check BNP and 2D echo. Continue current IV Abx and wean O2 supplementation as tolerated for SPO2 above 88%. Pulmonary is also following. 01/16: Patient transferred to IMCU bed, stable off of BiPAP on salter at 6 L. Patient states that he uses 6 L at home. Patient stated that his noninvasive ventilation stopped working 2 weeks ago and he has not been able to get it serviced and states that he recently was granted disability insurance. manager php aware. 01/17: CM working on home health care arrangements. Anticipate d/c in next 24-48 hrs. Assessment and Plan: Neuro: NAD -Reorientation as needed -Maintain sleep-wake cycle -As needed analgesia Cardiac: Hypertensive emergency -Presented with a blood pressure of 200/105 -As needed hydralazine and labetalol -Antihypertensive regimen: Hydrochlorothiazide, lisinopril -Blood pressure monitoring per protocol -Echocardiogram shows LVEF 55 to 60%, moderate concentric LVH Respiratory: Acute on chronic hypoxic respiratory failure, COPD exacerbation, h/o ANNETTA on CPAP -CCM consulted, appreciate recommendations -Presented with shortness of breath for 3 days, SPO2 in the 80s with 2 L of nasal cannula in the ED -S/p continuous BiPAP -Wean to salter -BiPAP as needed and nightly -Steroids -Pulmonary hygiene -SPO2 monitoring -S/p Lasix -Duoneb GI: Morbid obesity -24 hours +20 mL -PPI -Cardiac diet -Encouraged lifestyle and dietary modifications outpatient : NAD -Monitor intake and output -Renally dose medications -Avoid nephrotoxic medications -Trend BMP ID: COPD exacerbation, multifocal pneumonia -CT showed multifocal pneumonia -Antibiotic therapy with Zithromax and Rocephin -COVID-19 PCR negative -Flu PCR pending -Trend WBC and fever curve Endo: NAD -Avoid hypoglycemia Heme: Elevated D-dimer, leukocytosis -CTA chest shows no evidence of pulmonary embolism, bilateral patchy consolidation throughout the both lungs suggestive of multifocal pneumonia, mediastinal lymphadenopathy likely reactive -Bilateral lower extremity Doppler ultrasound negative for DVT -Trend CBC -Transfuse hemoglobin less than 7 -SCDs to BLE while in bed The high probability of a clinically significant, sudden or life threatening deterioration of the [multiple] system(s) required my full and direct attention, intervention and personal management. The aggregate critical care time was [60] minutes. This time is in addition to time spent performing reported procedures but includes the following: [x] Data Review and interpretation [x] Patient assessment and monitoring of vital signs [x] Documentation [x] Medication orders and management Disposition Plan: imcu Total Time Spent with Patient (Minutes): 60 Disposition: 30 STILL A PATIENT Final Discharge Diagnosis (Prints w/discharge instructions): acute on chronic respiratory failure, copd exacerbation Time spent for discharge: 35 Core Measure Documentation - Palliative Care Palliative Care/ Comfort Measures: Not Applicable - Core Measures Any of the following diagnoses?: none Exam - Physical Exam Narrative exam: General appearance: Present: no acute distress, well-nourished, obese - EENT Eyes: Present: PERRL, EOM intact ENT: hearing intact, clear oral mucosa, dentition normal - Neck Neck: Present: normal ROM - Respiratory Respiratory effort: normal Respiratory: bilateral: diminished, wheezing - Cardiovascular Rhythm: regular Heart Sounds: Present: S1 & S2. Absent: systolic murmur, diastolic murmur - Extremities Extremities: no ischemia, pulses intact, pulses symmetrical, No edema, normal temperature, normal color Peripheral Pulses: within normal limits - Abdominal General gastrointestinal: soft, non-tender, non-distended, normal bowel sounds - Integumentary Integumentary: Present: clear, warm, dry - Psychiatric Psychiatric: appropriate mood/affect, cooperative - Neurologic Neurologic: CNII-XII intact, no focal deficits, moves all extremities - Allied Health Allied health notes reviewed: nursing, RT, social work - Constitutional Vitals: Temp Pulse Resp BP Pulse Ox 97.8 F 82 27 H 139/80 84 01/17/22 11:40 01/17/22 15:00 01/17/22 15:00 01/17/22 15:00 01/17/22 15:00 Plan Follow up with: PRIMARY CAREMD [Primary Care Provider] - 3-5 Days
[2022-01-17] MEDS: hydrALAZINE 20 MG/1 ML INJ IV PRN (16:25)
--- NOTE | 2022-01-17 16:39 | Progress Note ---
Assessment and Plan Assessment and plan: Interval history: This is a 46-year-old morbidly obese male with COPD, former tobacco abuse, oxygen dependency at home, ANNETTA with CPAP use who presents the emergency department on 01/13 with shortness of breath ongoing for the past 3 days while being out of his home oxygen for about 3 days. Upon arrival to the emergency department patient was tachypneic and tachycardic and found to be wheezing and was placed on BiPAP with nebulizing treatments, D-dimer noted at 942, CXR showed CHF/volume overload with bibasilar pulmonary edema and CTA of the chest showed no evidence of pulm embolism, bilateral patchy consolidation throughout both lungs suggestive of multifocal pneumonia, likely reactive mediastinal lymphadenopathy. Patient was admitted to the hospital service on empiric antibiotics and BiPAP use for COPD exacerbation. Hospital Course to Date: 01/14: Very anxious this am s/p 1mg IV versed with positive response. Patient remains on Bipap at 60% Fio2, 16/01, SPO2 above 95%. COVID and Flu PCR pending. Continue empiric IV Abx and IV steroids. Pulmonary and ID consult pending. Patient unable to tolerate Bipap off at this am, unable to administer PO meds. PRN hydralazine added for hypertension. 01/15: Remains stable on the Bipap, still on 60% Fio2. COVID PCR negative. This am ABG noted. Wheezing and bibasilar crakles appreciated this morning. X1 dose of IV lasix ordered, will check BNP and 2D echo. Continue current IV Abx and wean O2 supplementation as tolerated for SPO2 above 88%. Pulmonary is also following. 01/16: Patient transferred to [facility] bed, stable off of BiPAP on salter at 6 L. Patient states that he uses 6 L at home. Patient stated that his noninvasive ventilation stopped working 2 weeks ago and he has not been able to get it serviced and states that he recently was granted disability insurance. 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 01/17: CM working on home health care arrangements. Anticipate d/c in next 24-48 hrs. Assessment and Plan: Neuro: NAD -Reorientation as needed -Maintain sleep-wake cycle -As needed analgesia Cardiac: Hypertensive emergency -Presented with a blood pressure of 200/105 -As needed hydralazine and labetalol -Antihypertensive regimen: Hydrochlorothiazide, lisinopril -Blood pressure monitoring per protocol -Echocardiogram shows LVEF 55 to 60%, moderate concentric LVH Respiratory: Acute on chronic hypoxic respiratory failure, COPD exacerbation, h/o ANNETTA on CPAP -CCM consulted, appreciate recommendations -Presented with shortness of breath for 3 days, SPO2 in the 80s with 2 L of nasal cannula in the ED -S/p continuous BiPAP -Wean to salter -BiPAP as needed and nightly -Steroids -Pulmonary hygiene -SPO2 monitoring -S/p Lasix -Duoneb GI: Morbid obesity -24 hours +20 mL -PPI -Cardiac diet -Encouraged lifestyle and dietary modifications outpatient : NAD -Monitor intake and output -Renally dose medications -Avoid nephrotoxic medications -Trend BMP ID: COPD exacerbation, multifocal pneumonia -CT showed multifocal pneumonia -Antibiotic therapy with Zithromax and Rocephin -COVID-19 PCR negative -Flu PCR pending -Trend WBC and fever curve Endo: NAD -Avoid hypoglycemia Heme: Elevated D-dimer, leukocytosis -CTA chest shows no evidence of pulmonary embolism, bilateral patchy consolidation throughout the both lungs suggestive of multifocal pneumonia, mediastinal lymphadenopathy likely reactive -Bilateral lower extremity Doppler ultrasound negative for DVT -Trend CBC -Transfuse hemoglobin less than 7 -SCDs to BLE while in bed The high probability of a clinically significant, sudden or life threatening deterioration of the [multiple] system(s) required my full and direct attention, intervention and personal management. The aggregate critical care time was [60] minutes. This time is in addition to time spent performing reported procedures but includes the following: [x] Data Review and interpretation [x] Patient assessment and monitoring of vital signs [x] Documentation [x] Medication orders and management History Interval history: no acute complaints Hospitalist Physical - Physical exam Narrative exam: General appearance: Present: no acute distress, well-nourished, obese - EENT Eyes: Present: PERRL, EOM intact ENT: hearing intact, clear oral mucosa, dentition normal - Neck Neck: Present: normal ROM - Respiratory Respiratory effort: normal Respiratory: bilateral: diminished, wheezing - Cardiovascular Rhythm: regular Heart Sounds: Present: S1 & S2. Absent: systolic murmur, diastolic murmur - Extremities Extremities: no ischemia, pulses intact, pulses symmetrical, No edema, normal temperature, normal color Peripheral Pulses: within normal limits - Abdominal General gastrointestinal: soft, non-tender, non-distended, normal bowel sounds - Integumentary Integumentary: Present: clear, warm, dry - Psychiatric Psychiatric: appropriate mood/affect, cooperative - Neurologic Neurologic: CNII-XII intact, no focal deficits, moves all extremities - Allied Health Allied health notes reviewed: nursing, RT, social work - Constitutional Vitals: Temp Pulse Resp BP Pulse Ox 98.8 F 101 H 16 169/98 93 01/17/22 16:00 01/17/22 16:25 01/17/22 16:00 01/17/22 16:25 01/17/22 16:00 General appearance: Present: no acute distress, well-nourished, obese HEART Score - HEART Score Troponin: Troponin T < 0.010 ng/mL (0.00-0.029) 01/13/22 15:09 Results - Labs CBC & Chem 7: 01/16/22 03:58 01/16/22 03:58 Labs: Laboratory Last Values WBC 11.9 K/mm3 (4.5-11.0) H 01/16/22 03:58 RBC 5.74 M/mm3 (3.65-5.03) H 01/16/22 03:58 Hgb 12.0 gm/dl (11.8-15.2) 01/16/22 03:58 Hct 40.3 % (35.5-45.6) 01/16/22 03:58 MCV 70 fl (84-94) L 01/16/22 03:58 MCH 21 pg (28-32) L 01/16/22 03:58 MCHC 30 % (32-34) L 01/16/22 03:58 RDW 17.9 % (13.2-15.2) H 01/16/22 03:58 Plt Count 461 K/mm3 (140-440) H 01/16/22 03:58 Lymph % (Auto) 11.3 % (13.4-35.0) L 01/15/22 04:28 [place] % (Auto) 4.2 % (0.0-7.3) 01/15/22 04:28 Eos % (Auto) 0.0 % (0.0-4.3) 01/15/22 04:28 Baso % (Auto) 0.5 % (0.0-1.8) 01/15/22 04:28 Lymph # (Auto) 0.9 K/mm3 (1.2-5.4) L 01/15/22 04:28 [place] # (Auto) 0.3 K/mm3 (0.0-0.8) 01/15/22 04:28 Eos # (Auto) 0.0 K/mm3 (0.0-0.4) 01/15/22 04:28 Baso # (Auto) 0.0 K/mm3 (0.0-0.1) 01/15/22 04:28 Seg Neutrophils % 84.0 % (40.0-70.0) H 01/15/22 04:28 Seg Neutrophils # 6.6 K/mm3 (1.8-7.7) 01/15/22 04:28 PT 13.5 Sec. (12.2-14.9) 01/13/22 15:09 INR 0.93 (0.87-1.13) 01/13/22 15:09 APTT 29.6 Sec. (24.2-36.6) 01/13/22 15:09 D-Dimer 942.90 ng/mlDDU (0-234) H 01/13/22 15:09 ABG pH 7.425 pH Units (7.350-7.450) 01/15/22 05:20 ABG pCO2 43.6 mm Hg 01/15/22 05:20 ABG pO2 71.2 mm Hg (80.0-90.0) L 01/15/22 05:20 ABG HCO3 28.0 mmol/L (20.0-26.0) H 01/15/22 05:20 ABG O2 Saturation 97.6 % (95.0-99.0) 01/15/22 05:20 ABG O2 Content 8.7 (0.0-44) 01/15/22 05:20 ABG Base Excess 3.3 mmol/L (-2.0-3.0) H 01/15/22 05:20 ABG Hemoglobin 6.4 gm/dl (14.0-18.0) L 01/15/22 05:20 ABG Carboxyhemoglobin 2.3 % (0.0-5.0) 01/15/22 05:20 ABG Methemoglobin 0.4 % (0.0-1.5) 01/15/22 05:20 Oxyhemoglobin 94.9 % (95.0-99.0) L 01/15/22 05:20 FiO2 30 % 01/15/22 05:20 Sodium 135 mmol/L (137-145) L 01/16/22 03:58 Potassium 4.9 mmol/L (3.6-5.0) 01/16/22 03:58 Chloride 101.3 mmol/L (98-107) 01/16/22 03:58 Carbon Dioxide 28 mmol/L (22-30) 01/16/22 03:58 Anion Gap 11 mmol/L 01/16/22 03:58 BUN 25 mg/dL (9-20) H 01/16/22 03:58 Creatinine 0.7 mg/dL (0.8-1.3) L 01/16/22 03:58 Estimated GFR > 60 ml/min 01/16/22 03:58 BUN/Creatinine Ratio 36 % 01/16/22 03:58 Glucose 152 mg/dL (75-100) H 01/16/22 03:58 POC Glucose 118 mg/dL (70-105) H 01/16/22 22:17 Calcium 8.9 mg/dL (8.4-10.2) 01/16/22 03:58 Phosphorus 4.50 mg/dL (2.5-4.5) 01/16/22 03:58 Magnesium 2.70 mg/dL (1.7-2.3) H 01/16/22 03:58 Ferritin 28.2 ng/mL (30.0-300.0) L 01/14/22 11:07 Total Bilirubin 0.30 mg/dL (0.1-1.2) 01/15/22 04:28 AST 12 units/L (5-40) 01/15/22 04:28 ALT 11 units/L (7-56) 01/15/22 04:28 Alkaline Phosphatase 131 units/L (35-129) H 01/15/22 04:28 Lactate Dehydrogenase 215 units/L (91-180) H 01/14/22 11:07 Troponin T < 0.010 ng/mL (0.00-0.029) 01/13/22 15:09 C-Reactive Protein 7.60 mg/dL (0.00-1.30) H 01/14/22 11:07 NT-Pro-B Natriuret Pep 28.03 pg/mL (0-450) 01/15/22 10:09 Total Protein 7.0 g/dL (6.3-8.2) 01/15/22 04:28 Albumin 4.0 g/dL (3.9-5) 01/15/22 04:28 Albumin/Globulin Ratio 1.3 % 01/15/22 04:28 Procalcitonin < 0.05 ng/mL (<0.15) 01/14/22 11:07 Urine Opiates Screen Negative 01/14/22 08:49 Urine Methadone Screen Negative 01/14/22 08:49 Ur Barbiturates Screen Negative 01/14/22 08:49 Ur Phencyclidine Scrn Negative 01/14/22 08:49 Ur Amphetamines Screen Negative 01/14/22 08:49 U Benzodiazepines Scrn Positive 01/14/22 08:49 Urine Cocaine Screen Negative 01/14/22 08:49 U Marijuana (THC) Screen Negative 01/14/22 08:49 Drugs of Abuse Note Disclamer 01/14/22 08:49 SARS-CoV-2 (PCR) Negative (Negative) 01/14/22 10:30 Multani/IV: Voiding Method Urinal Active Medications - Current Medications Current Medications: Generic Name Dose Route Start Last Admin Trade Name Freq PRN Reason Stop Dose Admin Acetaminophen 650 mg 01/13/22 23:58 Acetaminophen 325 Mg Tab PO Q6H PRN Pain MILD(1-3)/Fever >100.5/CHANG Albuterol/Ipratropium 1 ampul 01/14/22 00:00 01/17/22 12:00 Ipratropium/Albuterol Sulfate 3 Ml Ampul.Neb IH 1 ampul Q4HRT ZAKI Administration Alprazolam 0.5 mg 01/14/22 08:22 01/15/22 09:58 Alprazolam 0.5 Mg Tab PO 0.5 mg Q8H PRN Administration Anxiety Enoxaparin Sodium 40 mg 01/14/22 22:00 01/16/22 22:20 Enoxaparin 40 Mg/0.4 Ml Inj SUB-Q 40 mg QHS ZAKI Administration Protocol Famotidine 20 mg 01/14/22 10:00 01/17/22 09:02 Famotidine 20 Mg Tab PO 20 mg BID ZAKI Administration Hydralazine HCl 10 mg 01/14/22 08:28 01/17/22 16:25 Hydralazine 20 Mg/1 Ml Inj IV 10 mg Q4HR PRN Administration Hypertension Hydrochlorothiazide 12.5 mg 01/15/22 11:00 01/17/22 09:02 Hydrochlorothiazide 12.5 Mg Cap PO 12.5 mg QDAY [facility] Administration Ceftriaxone Sodium 2 gm in 100 mls @ 200 mls/hr 01/13/22 23:45 01/17/22 09:32 Rocephin/Ns 2 Gm/100 Ml IV 01/17/22 23:44 Infused Q24HR [facility] Infusion Protocol Insulin Glargine 15 units 01/15/22 22:00 01/16/22 22:21 Insulin Glargine 100 Units/Ml SUB-Q 15 units QHS [facility] Administration Insulin Human Regular 0 units 01/16/22 11:30 01/17/22 16:14 Insulin Regular, Human 100 Units/1 Ml SUB-Q Not Given ACHS [facility] Protocol Labetalol HCl 10 mg 01/14/22 16:00 Labetalol 20 Mg/4 Ml Inj IV Q4HR PRN Hypertension Lisinopril 20 mg 01/15/22 11:00 01/17/22 09:03 Lisinopril 20 Mg Tab PO 20 mg QDAY [facility] Administration Magnesium Hydroxide 30 ml 01/13/22 23:58 Magnesium Hydroxide (Mom) Oral Liqd Udc PO Q4H PRN Constipation Methylprednisolone Sodium Succinate 40 mg 01/17/22 14:00 01/17/22 13:43 Methylprednisolone Sod Succinate 40 Mg/1 Ml Inj IV 40 mg Q8HR [facility] Administration Ondansetron HCl 4 mg 01/13/22 23:31 Ondansetron 4 Mg/2 Ml Inj IV Q8H PRN Nausea And Vomiting Oxycodone/Acetaminophen 1 tab 01/13/22 23:34 Oxycodone /Acetaminophen 5-325mg Tab PO Q6H PRN Pain , Severe (7-10) Sodium Chloride 10 ml 01/13/22 23:31 01/16/22 05:47 Sodium Chloride 0.9% 10 Ml Flush Syringe IV 10 ml PRN PRN Administration LINE FLUSH Sodium Chloride 10 ml 01/14/22 10:00 01/17/22 09:03 Sodium Chloride 0.9% 10 Ml Flush Syringe IV 10 ml BID ZAKI Administration Nutrition/Malnutrition Assess - Dietary Evaluation Nutrition/Malnutrition Findings: Nutrition Notes Start: 01/14/22 10:38 Freq: Status: Active Protocol: Document 01/14/22 10:38 EVI (Rec: 01/14/22 10:49 EVI [id number]) Nutrition Notes Need for Assessment generated from: 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 Labs/Tests 01/14: BUN 8, Crea 0.6. Pertinent Medications 01/14: Nutritionally unremarkable. 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 Weight Status Morbidly Obese Subjective/Other Information RD consult for nutrition education assessment. No reports available on Pt's PO intake of meals at the time , will assess at F/U. Pt is on Bi-PaP+, O2 saturation @ 88%, according to Physical Assessment History notes. Pt still in critical condition , not a candidate for Nutrition Education at the time, will assess feasibility on F/U. Pt shows an unspecified area of concern for skin risk at the time, according to Physical Assessment History notes. Percent of energy/protein needs met: Prescribed Cardiac Diet provides for energy/protein needs (2,230 Kcal/85 g) during LOS. Burn Absent Trauma Absent GI Symptoms None Food Allergy No Skin Integrity/Comment Unspecified area of concern. 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 As Evidenced by Signs and Symptoms BMI: 195 Kg/m2. Is patient on ventilator? No Is Patient Ambulatory and/or Out of Bed No REE-([facility]-confined to bed) 3373.920 Kcal/Kg value to use for calculation 10 Approximate Energy Requirements Using 1950 kcal/Kg Calculation Used for Recommendations Kcal/kg Additional Notes Protein: <2.5 g/Kg IBW; <175 g /day. Fluids: 1 ml/Kcal, or as per MD. Nutrition Intervention Change Diet Order: Continue Cardiac Diet as tolerated. Goal #1 Adjust the dietary intervention to better serve Pt's needs and clinical conditions during LOS. Follow-Up By: 01/20/22 Additional Comments Nutrition education will be provided at F/U, if feasible. Continue monitoring food tolerance, %PO intake of meals , and BM.
--- NOTE | 2022-01-17 17:31 | Consultation ---
History of Present Illness - Reason for Consult Consult date: 01/17/22 - History of Present Illness 46-year-old man past medical history COPD, morbid obesity presented to hospital complaining of shortness of breath. This began 3 days prior to admission and was progressively worsening. He is typically on home oxygen, and had run out at home. He otherwise denies any complaints. Afebrile since admission with a white count 11.9. Currently on ceftriaxone. Normal renal function. Procalcitonin normal. Imaging personally reviewed: Chest x-ray: Bilateral mid and lower lung opacities. Review of Systems: Bold if positive, otherwise negative General: fevers, chills, rigors HEENT: visual disturbance, diplopia, eye pain Respiratory: cough, sputum, hemoptysis, shortness of breath Cardiovascular: chest pain, syncope Gastrointestinal: nausea, vomiting, diarrhea, abdominal pain Genitourinary: dysuria, hematuria, flank pain Musculoskeletal: neck pain, back pain, joint pain, edema Neurologic: headaches, seizures Hematologic: easy bruising or bleeding Endocrine: night sweats, acute weight loss Skin: rash, jaundice, redness Psychiatric: suicidal, homicidal ideation Past History Past Medical History: COPD, hypertension, other (Asthma) Social history: smoking (Former Smoker) Family history: no significant family history Medications and Allergies Allergies Allergy/AdvReac Type Severity Reaction Status Date / Time No Known Allergies Allergy Unverified 07/19/15 09:58 Home Medications Medication Instructions Recorded Confirmed Last Taken Type Fluticasone/Umeclidin/Vilanter 20 inh INHALATION PRN 04/15/21 01/14/22 Unknown History [Treleshanika Ellipta 100-62.5-25(Nf)] Ipratropium [Atrovent NEB] 20 inh INHALATION PRN 04/15/21 01/14/22 01/13/22 History Lisinopril/Hydrochlorothiazide 40 mg DAILY 04/15/21 01/14/22 01/13/22 History ALPRAZolam [Xanax TAB] 0.5 mg PO Q8H PRN tablet 04/23/21 01/14/22 Unknown Rx Famotidine [Pepcid] 20 mg PO BID tablet 04/23/21 01/14/22 Unknown Rx Insulin Regular, Human [HumuLIN R] 0 units SUB-Q ACHS units 04/23/21 01/14/22 Unknown Rx Prednisone [predniSONE 10 mg 10 mg PO .TAPER #1 tab.ds.pk 04/23/21 01/14/22 03/28/21 Rx (6-Day Pack, 21 Tabs)] levoFLOXacin [Levaquin] 750 mg PO QDAY #7 tablet 04/23/21 01/14/22 Unknown Rx Active Meds: Active Medications Acetaminophen (Acetaminophen 325 Mg Tab) 650 mg PO Q6H PRN PRN Reason: Pain MILD(1-3)/Fever >100.5/CHANG Albuterol/Ipratropium (Ipratropium/Albuterol Sulfate 3 Ml Ampul.Neb) 1 ampul IH Q4HRT ZAKI Last Admin: 01/17/22 12:00 Dose: 1 ampul Alprazolam (Alprazolam 0.5 Mg Tab) 0.5 mg PO Q8H PRN PRN Reason: Anxiety Last Admin: 01/15/22 09:58 Dose: 0.5 mg Enoxaparin Sodium (Enoxaparin 40 Mg/0.4 Ml Inj) 40 mg SUB-Q QHS ZAKI; Protocol Last Admin: 01/16/22 22:20 Dose: 40 mg Famotidine (Famotidine 20 Mg Tab) 20 mg PO BID ZAKI Last Admin: 01/17/22 09:02 Dose: 20 mg Hydralazine HCl (Hydralazine 20 Mg/1 Ml Inj) 10 mg IV Q4HR PRN PRN Reason: Hypertension Last Admin: 01/17/22 16:25 Dose: 10 mg Hydrochlorothiazide (Hydrochlorothiazide 12.5 Mg Cap) 12.5 mg PO QDAY ZAKI Last Admin: 01/17/22 09:02 Dose: 12.5 mg Ceftriaxone Sodium (Rocephin/Ns 2 Gm/100 Ml) 2 gm in 100 mls @ 200 mls/hr IV Q24HR ZAKI; Protocol Stop: 01/17/22 23:44 Last Infusion: 01/17/22 09:32 Dose: Infused Insulin Glargine (Insulin Glargine 100 Units/Ml) 15 units SUB-Q QHS ZAKI Last Admin: 01/16/22 22:21 Dose: 15 units Insulin Human Regular (Insulin Regular, Human 100 Units/1 Ml) 0 units SUB-Q ACHS ZAKI; Protocol Last Admin: 01/17/22 16:14 Dose: Not Given Labetalol HCl (Labetalol 20 Mg/4 Ml Inj) 10 mg IV Q4HR PRN PRN Reason: Hypertension Lisinopril (Lisinopril 20 Mg Tab) 20 mg PO QDAY [facility] Last Admin: 01/17/22 09:03 Dose: 20 mg Magnesium Hydroxide (Magnesium Hydroxide (Mom) Oral Liqd Udc) 30 ml PO Q4H PRN PRN Reason: Constipation Methylprednisolone Sodium Succinate (Methylprednisolone Sod Succinate 40 Mg/1 Ml Inj) 40 mg IV Q8HR [facility] Last Admin: 01/17/22 13:43 Dose: 40 mg Ondansetron HCl (Ondansetron 4 Mg/2 Ml Inj) 4 mg IV Q8H PRN PRN Reason: Nausea And Vomiting Oxycodone/Acetaminophen (Oxycodone /Acetaminophen 5-325mg Tab) 1 tab PO Q6H PRN PRN Reason: Pain , Severe (7-10) Sodium Chloride (Sodium Chloride 0.9% 10 Ml Flush Syringe) 10 ml IV PRN PRN PRN Reason: LINE FLUSH Last Admin: 01/16/22 05:47 Dose: 10 ml Sodium Chloride (Sodium Chloride 0.9% 10 Ml Flush Syringe) 10 ml IV BID [facility] Last Admin: 01/17/22 09:03 Dose: 10 ml Physical Examination - Physical Exam Narrative exam: Physical Exam: Constitutional: Alert, cooperative. No acute distress Head, Ears, Nose: Normocephalic, atraumatic. External ears, nose normal Eyes: Conjunctivae/corneas clear. No icterus. No ptosis. Neck: Supple, no meningeal signs Oral: dentition fair, no thrush Cardiovascular: S1, S2 normal. Respiratory: Good air entry, clear to auscultation bilaterally GI: Soft, non-tender; bowel sounds normal. No peritoneal signs. Musculoskeletal: No pedal edema, no cyanosis. Skin: No rash or abscess Hem/Lymphatic: No palpable cervical or supraclavicular nodes. No lymphangitis Psych: Mood ok. Affect normal Neurological: Awake, alert, oriented. No gross abnormality - Constitutional Vitals: Vital Signs Temp Pulse Resp BP Pulse Ox 98.8 F 114 H 34 H 176/88 95 01/17/22 16:57 01/17/22 17:00 01/17/22 17:00 01/17/22 17:00 01/17/22 17:00 Temperature -Last 24 Hours Temperature 98.8 F Temperature 98.8 F Temperature 97.8 F Temperature 97.8 F Temperature 98 F Temperature 98 F Temperature 98.8 F Results - Labs CBC & Chem 7: 01/16/22 03:58 01/16/22 03:58 Labs: Abnormal lab results 01/16/22 01/16/22 01/16/22 Range/Units 11:39 16:23 22:17 POC Glucose 203 H 117 H 118 H (70-105) mg/dL Assessment and Plan Cultures: Blood culture no growth so far A/P: 46-year-old man past medical history COPD, morbid obesity now with: #Acute hypoxic respiratory failure: Secondary to pneumonia #Pneumonia: Completed antibiotic course #Morbid obesity #COPD Recs: -Complete 5 days antibiotics Thank you for the consult, we will continue to follow. Lina Artis MD [facility] O: [phone] F: [phone]
[2022-01-17] MEDS: ENOXAPARIN 40 MG/0.4 ML INJ SUB-Q SCH (21:38)
[2022-01-17] MEDS: INSULIN GLARGINE 100 UNITS/ML SUB-Q SCH (21:40)
[2022-01-18] MEDS: IPRATROPIUM/ALBUTEROL SULFATE 3 ML AMPUL.NEB IH SCH ×7 (00:22→23:56)
[2022-01-18] MEDS: hydrALAZINE 20 MG/1 ML INJ IV PRN (00:28)
[2022-01-18] MEDS: ALPRAZolam 0.5 MG TAB PO PRN ×2 (02:17→21:21)
[2022-01-18] MEDS: methylPREDNISolone Sod Succinate 40 MG/1 ML INJ IV SCH ×3 (05:33→21:21)
[2022-01-18] MEDS: LISINOPRIL 20 MG TAB PO SCH (10:02)
[2022-01-18] MEDS: FAMOTIDINE 20 MG TAB PO SCH ×2 (10:02→21:21)
[2022-01-18] MEDS: hydroCHLOROthiazide 12.5 MG CAP PO SCH (10:02)
[2022-01-18] MEDS: INSULIN REGULAR, HUMAN 100 UNITS/1 ML SUB-Q SCH ×4 (10:03→22:01)
--- NOTE | 2022-01-18 14:16 | Progress Note ---
Assessment and Plan 46 y/o morbidly obese male with acute on chronic respiratory failure, COPD exacerbation and ANNETTA with likely OHS as well. 01/18/22: Was negative over 700 in the last 24 hours but still with high nasal cannula requirement. Consider switching hCTZ to lasix and see if increased diuresis will help with O2 requirements. PER CM note, needs repeat walk test as patient needs a large concentrator for home. Continue NIV prn during the day and QHS. If oxygen requirement doesn't improve with diuresis, may need to go back up on steroids. 01/17/22: Per patient on 5-6 liters at home and thinks his concentrator goes to 6. Needs a higher concentrator. Will speak with CM about this. Per rounds, Medicaid is active and info will be sent to DME to service his current machine. Ok with dropping steroids down today to [id number]. Continue scheduled nebs. Would also be ok with changing to oral abx therapy as well. No objection to floor transfer if feasible. Hopeful discharge in the next 48-72 hours. 1. Continue steroids 2. Wean FiO2 as tolerated, baseline flow of oxygen at home is about 5-6 3. Daily net negative volume state 4. Scheduled nebs 5. weight loss if possible Subjective Date of service: 01/18/22 Principal diagnosis: COPD exac. Interval history: Still on and off bipap during the day. Requiring 8 liters NC per RT last note Objective Vital Signs - 12hr 01/18/22 01/18/22 01/18/22 02:16 02:30 02:45 Temperature Pulse Rate 83 78 82 Pulse Rate [ Bilateral] Pulse Rate [ From Monitor] Respiratory 24 Rate Respiratory Rate [Bilateral ] Blood Pressure 193/95 148/87 158/81 O2 Sat by Pulse 94 88 90 Oximetry 01/18/22 01/18/22 01/18/22 03:00 03:15 03:30 Temperature Pulse Rate 77 79 74 Pulse Rate [ Bilateral] Pulse Rate [ From Monitor] Respiratory 23 27 H 21 Rate Respiratory Rate [Bilateral ] Blood Pressure 156/76 143/87 148/82 O2 Sat by Pulse 88 85 92 Oximetry 01/18/22 01/18/22 01/18/22 03:45 04:00 04:16 Temperature 98 F Pulse Rate 75 76 77 Pulse Rate [ Bilateral] Pulse Rate [ 74 From Monitor] Respiratory 19 23 23 Rate Respiratory Rate [Bilateral ] Blood Pressure 139/76 149/83 148/75 O2 Sat by Pulse 89 92 92 Oximetry 01/18/22 01/18/22 01/18/22 04:30 04:44 04:45 Temperature Pulse Rate 70 72 70 Pulse Rate [ 71 Bilateral] Pulse Rate [ From Monitor] Respiratory 19 Rate Respiratory 22 Rate [Bilateral ] Blood Pressure 153/84 157/79 157/79 O2 Sat by Pulse 85 97 87 Oximetry 01/18/22 01/18/22 01/18/22 05:00 05:26 05:30 Temperature Pulse Rate 71 66 74 Pulse Rate [ Bilateral] Pulse Rate [ From Monitor] Respiratory 22 Rate Respiratory Rate [Bilateral ] Blood Pressure 162/78 147/85 O2 Sat by Pulse 91 99 93 Oximetry 01/18/22 01/18/22 01/18/22 05:45 06:00 06:15 Temperature Pulse Rate 80 71 72 Pulse Rate [ Bilateral] Pulse Rate [ From Monitor] Respiratory 25 H 19 22 Rate Respiratory Rate [Bilateral ] Blood Pressure 155/87 145/79 154/86 O2 Sat by Pulse 91 87 87 Oximetry 01/18/22 01/18/22 01/18/22 06:30 06:46 07:00 Temperature Pulse Rate 67 72 85 Pulse Rate [ Bilateral] Pulse Rate [ From Monitor] Respiratory 24 Rate Respiratory Rate [Bilateral ] Blood Pressure 163/76 162/84 164/85 O2 Sat by Pulse 95 89 87 Oximetry 01/18/22 01/18/22 01/18/22 07:15 07:30 07:45 Temperature Pulse Rate 76 81 69 Pulse Rate [ Bilateral] Pulse Rate [ From Monitor] Respiratory 25 H 22 Rate Respiratory Rate [Bilateral ] Blood Pressure 159/86 151/86 151/91 O2 Sat by Pulse 91 89 87 Oximetry 01/18/22 01/18/22 01/18/22 08:00 08:05 08:09 Temperature 97.7 F Pulse Rate 75 82 Pulse Rate [ Bilateral] Pulse Rate [ 76 From Monitor] Respiratory 22 Rate Respiratory Rate [Bilateral ] Blood Pressure 147/84 147/84 O2 Sat by Pulse 89 94 97 Oximetry 01/18/22 01/18/22 01/18/22 08:10 08:15 08:30 Temperature Pulse Rate 85 75 Pulse Rate [ 84 Bilateral] Pulse Rate [ From Monitor] Respiratory 26 H 16 Rate Respiratory 22 Rate [Bilateral ] Blood Pressure 148/88 148/88 O2 Sat by Pulse 95 89 Oximetry 01/18/22 01/18/22 01/18/22 08:45 09:00 09:15 Temperature Pulse Rate 89 79 85 Pulse Rate [ Bilateral] Pulse Rate [ From Monitor] Respiratory 26 H 23 26 H Rate Respiratory Rate [Bilateral ] Blood Pressure 178/108 160/84 163/90 O2 Sat by Pulse 93 91 88 Oximetry 01/18/22 01/18/22 01/18/22 09:30 09:45 10:00 Temperature Pulse Rate 73 75 70 Pulse Rate [ Bilateral] Pulse Rate [ From Monitor] Respiratory 22 20 Rate Respiratory Rate [Bilateral ] Blood Pressure 171/85 158/86 175/88 O2 Sat by Pulse 85 88 85 Oximetry 01/18/22 01/18/22 01/18/22 10:02 10:16 10:30 Temperature Pulse Rate 80 88 96 H Pulse Rate [ Bilateral] Pulse Rate [ From Monitor] Respiratory 26 H 25 H Rate Respiratory Rate [Bilateral ] Blood Pressure 175/88 184/90 191/91 O2 Sat by Pulse 88 85 Oximetry 01/18/22 01/18/22 01/18/22 10:45 11:00 11:16 Temperature Pulse Rate 102 H 112 H 79 Pulse Rate [ Bilateral] Pulse Rate [ From Monitor] Respiratory 25 H 31 H 23 Rate Respiratory Rate [Bilateral ] Blood Pressure 177/83 176/95 167/95 O2 Sat by Pulse 83 L 92 93 Oximetry 01/18/22 01/18/22 01/18/22 11:30 11:45 12:00 Temperature 98.0 F Pulse Rate 79 75 76 Pulse Rate [ Bilateral] Pulse Rate [ 77 From Monitor] Respiratory 21 21 Rate Respiratory Rate [Bilateral ] Blood Pressure 166/83 158/86 168/81 O2 Sat by Pulse 88 92 93 Oximetry 01/18/22 01/18/22 01/18/22 12:15 12:35 12:39 Temperature Pulse Rate 75 88 Pulse Rate [ 90 Bilateral] Pulse Rate [ From Monitor] Respiratory 19 28 H Rate Respiratory 24 Rate [Bilateral ] Blood Pressure 166/83 149/83 O2 Sat by Pulse 91 98 Oximetry Constitutional: alert, other (critically ill) Eyes: non-icteric ENT: oropharynx moist Neck: supple Effort: normal Ascultation: Bilateral: wheezes Tactile fremitus: Right: other Cardiovascular: other (RRR w/ no mrg) Gastrointestinal: normoactive bowel sounds, soft, non-tender, non-distended Integumentary: normal Extremities: no cyanosis, no edema Neurologic: normal mental status, non-focal exam, pupils equal and round Psychiatric: mood appropriate, affect normal CBC and BMP: 01/16/22 03:58 01/16/22 03:58 ABG, PT/INR, D-dimer: ABG ABG pH 7.425 pH Units (7.350-7.450) 01/15/22 05:20 ABG pCO2 43.6 mm Hg 01/15/22 05:20 ABG pO2 71.2 mm Hg (80.0-90.0) L 01/15/22 05:20 ABG O2 Saturation 97.6 % (95.0-99.0) 01/15/22 05:20 PT/INR, D-dimer PT 13.5 Sec. (12.2-14.9) 01/13/22 15:09 INR 0.93 (0.87-1.13) 01/13/22 15:09 D-Dimer 942.90 ng/mlDDU (0-234) H 01/13/22 15:09 Abnormal lab findings: Abnormal Labs 01/13/22 01/13/22 01/13/22 15:09 15:09 15:09 WBC RBC 5.26 H Hgb 11.3 L MCV 69 L MCH 22 L MCHC 31 L RDW 18.3 H Plt Count Lymph % (Auto) [place] % (Auto) 11.2 H Lymph # (Auto) Seg Neutrophils % D-Dimer 942.90 H ABG pO2 ABG HCO3 ABG Base Excess ABG Hemoglobin Oxyhemoglobin Sodium Chloride BUN 8 L Creatinine 0.6 L Glucose POC Glucose Magnesium Ferritin Alkaline Phosphatase 138 H Lactate Dehydrogenase C-Reactive Protein 01/13/22 01/14/22 01/14/22 15:45 11:07 11:07 WBC RBC Hgb MCV MCH MCHC RDW Plt Count Lymph % (Auto) [place] % (Auto) Lymph # (Auto) Seg Neutrophils % D-Dimer ABG pO2 ABG HCO3 ABG Base Excess ABG Hemoglobin 11.9 L Oxyhemoglobin 94.7 L Sodium Chloride BUN Creatinine Glucose POC Glucose Magnesium Ferritin 28.2 L Alkaline Phosphatase Lactate Dehydrogenase 215 H C-Reactive Protein 7.60 H 01/14/22 01/15/22 01/15/22 16:43 04:28 04:28 WBC RBC 5.72 H Hgb MCV 70 L MCH 21 L MCHC 30 L RDW 18.3 H Plt Count Lymph % (Auto) 11.3 L [place] % (Auto) Lymph # (Auto) 0.9 L Seg Neutrophils % 84.0 H D-Dimer ABG pO2 ABG HCO3 ABG Base Excess ABG Hemoglobin Oxyhemoglobin Sodium 131 L Chloride 96.2 L BUN Creatinine 0.6 L Glucose 133 H POC Glucose 122 H Magnesium Ferritin Alkaline Phosphatase 131 H Lactate Dehydrogenase C-Reactive Protein 01/15/22 01/15/22 01/15/22 05:20 11:05 17:28 WBC RBC Hgb MCV MCH MCHC RDW Plt Count Lymph % (Auto) [place] % (Auto) Lymph # (Auto) Seg Neutrophils % D-Dimer ABG pO2 71.2 L ABG HCO3 28.0 H ABG Base Excess 3.3 H ABG Hemoglobin 6.4 L Oxyhemoglobin 94.9 L Sodium Chloride BUN Creatinine Glucose POC Glucose 222 H 298 H Magnesium Ferritin Alkaline Phosphatase Lactate Dehydrogenase C-Reactive Protein 01/15/22 01/16/22 01/16/22 21:15 03:01 03:58 WBC 11.9 H RBC 5.74 H Hgb MCV 70 L MCH 21 L MCHC 30 L RDW 17.9 H Plt Count 461 H Lymph % (Auto) [place] % (Auto) Lymph # (Auto) Seg Neutrophils % D-Dimer ABG pO2 ABG HCO3 ABG Base Excess ABG Hemoglobin Oxyhemoglobin Sodium Chloride BUN Creatinine Glucose POC Glucose 112 H 159 H Magnesium Ferritin Alkaline Phosphatase Lactate Dehydrogenase C-Reactive Protein 01/16/22 01/16/22 01/16/22 03:58 05:41 11:39 WBC RBC Hgb MCV MCH MCHC RDW Plt Count Lymph % (Auto) [place] % (Auto) Lymph # (Auto) Seg Neutrophils % D-Dimer ABG pO2 ABG HCO3 ABG Base Excess ABG Hemoglobin Oxyhemoglobin Sodium 135 L Chloride BUN 25 H Creatinine 0.7 L Glucose 152 H POC Glucose 135 H 203 H Magnesium 2.70 H Ferritin Alkaline Phosphatase Lactate Dehydrogenase C-Reactive Protein 01/16/22 01/16/22 01/17/22 16:23 22:17 09:21 WBC RBC Hgb MCV MCH MCHC RDW Plt Count Lymph % (Auto) [place] % (Auto) Lymph # (Auto) Seg Neutrophils % D-Dimer ABG pO2 ABG HCO3 ABG Base Excess ABG Hemoglobin Oxyhemoglobin Sodium Chloride BUN Creatinine Glucose POC Glucose 117 H 118 H 255 H Magnesium Ferritin Alkaline Phosphatase Lactate Dehydrogenase C-Reactive Protein 01/17/22 01/17/22 01/17/22 11:26 12:32 16:11 WBC RBC Hgb MCV MCH MCHC RDW Plt Count Lymph % (Auto) [place] % (Auto) Lymph # (Auto) Seg Neutrophils % D-Dimer ABG pO2 ABG HCO3 ABG Base Excess ABG Hemoglobin Oxyhemoglobin Sodium Chloride BUN Creatinine Glucose POC Glucose 176 H 237 H 124 H Magnesium Ferritin Alkaline Phosphatase Lactate Dehydrogenase C-Reactive Protein 01/17/22 01/18/22 01/18/22 21:32 08:00 12:07 WBC RBC Hgb MCV MCH MCHC RDW Plt Count Lymph % (Auto) [place] % (Auto) Lymph # (Auto) Seg Neutrophils % D-Dimer ABG pO2 ABG HCO3 ABG Base Excess ABG Hemoglobin Oxyhemoglobin Sodium Chloride BUN Creatinine Glucose POC Glucose 259 H 144 H 186 H Magnesium Ferritin Alkaline Phosphatase Lactate Dehydrogenase C-Reactive Protein
[2022-01-18] MEDS ORDERED: FUROSEMIDE 40 MG/4 ML INJ IV NR (14:17)
--- NOTE | 2022-01-18 14:34 | Progress Note ---
Assessment and Plan Assessment and plan: Interval history: This is a 46-year-old morbidly obese male with COPD, former tobacco abuse, oxygen dependency at home, ANNETTA with CPAP use who presents the emergency department on 01/13 with shortness of breath ongoing for the past 3 days while being out of his home oxygen for about 3 days. Upon arrival to the emergency department patient was tachypneic and tachycardic and found to be wheezing and was placed on BiPAP with nebulizing treatments, D-dimer noted at 942, CXR showed CHF/volume overload with bibasilar pulmonary edema and CTA of the chest showed no evidence of pulm embolism, bilateral patchy consolidation throughout both lungs suggestive of multifocal pneumonia, likely reactive mediastinal lymphadenopathy. Patient was admitted to the hospital service on empiric antibiotics and BiPAP use for COPD exacerbation. Hospital Course to Date: 01/14: Very anxious this am s/p 1mg IV versed with positive response. Patient remains on Bipap at 60% Fio2, 16/01, SPO2 above 95%. COVID and Flu PCR pending. Continue empiric IV Abx and IV steroids. Pulmonary and ID consult pending. Patient unable to tolerate Bipap off at this am, unable to administer PO meds. PRN hydralazine added for hypertension. 01/15: Remains stable on the Bipap, still on 60% Fio2. COVID PCR negative. This am ABG noted. Wheezing and bibasilar crakles appreciated this morning. X1 dose of IV lasix ordered, will check BNP and 2D echo. Continue current IV Abx and wean O2 supplementation as tolerated for SPO2 above 88%. Pulmonary is also following. 01/16: Patient transferred to [facility] bed, stable off of BiPAP on salter at 6 L. Patient states that he uses 6 L at home. Patient stated that his noninvasive ventilation stopped working 2 weeks ago and he has not been able to get it serviced and states that he recently was granted disability insurance. 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 01/17: CM working on home health care arrangements. Anticipate d/c in next 24-48 hrs. 01/18: Worse today. Agree with pulmonology assessment. may need additional volume removed. will order cxr. hctz d/c, ordered lasix 40 mg IV x 2 doses. Continue NIV prn and qhs. Assessment and Plan: Neuro: NAD -Reorientation as needed -Maintain sleep-wake cycle -As needed analgesia Cardiac: Hypertensive emergency -Presented with a blood pressure of 200/105 -As needed hydralazine and labetalol -Antihypertensive regimen: Hydrochlorothiazide, lisinopril -Blood pressure monitoring per protocol -Echocardiogram shows LVEF 55 to 60%, moderate concentric LVH Respiratory: Acute on chronic hypoxic respiratory failure, COPD exacerbation, h/o ANNETTA on CPAP -CCM consulted, appreciate recommendations -Presented with shortness of breath for 3 days, SPO2 in the 80s with 2 L of nasal cannula in the ED -S/p continuous BiPAP -Wean to salter -BiPAP as needed and nightly -Steroids -Pulmonary hygiene -SPO2 monitoring -S/p Lasix -Duoneb GI: Morbid obesity -24 hours +20 mL -PPI -Cardiac diet -Encouraged lifestyle and dietary modifications outpatient : NAD -Monitor intake and output -Renally dose medications -Avoid nephrotoxic medications -Trend BMP ID: COPD exacerbation, multifocal pneumonia -CT showed multifocal pneumonia -Antibiotic therapy with Zithromax and Rocephin -COVID-19 PCR negative -Flu PCR pending -Trend WBC and fever curve Endo: NAD -Avoid hypoglycemia Heme: Elevated D-dimer, leukocytosis -CTA chest shows no evidence of pulmonary embolism, bilateral patchy consolidation throughout the both lungs suggestive of multifocal pneumonia, mediastinal lymphadenopathy likely reactive -Bilateral lower extremity Doppler ultrasound negative for DVT -Trend CBC -Transfuse hemoglobin less than 7 -SCDs to BLE while in bed The high probability of a clinically significant, sudden or life threatening deterioration of the [multiple] system(s) required my full and direct attention, intervention and personal management. The aggregate critical care time was [60] minutes. This time is in addition to time spent performing reported procedures but includes the following: [x] Data Review and interpretation [x] Patient assessment and monitoring of vital signs [x] Documentation [x] Medication orders and management History Interval history: States he is feeling worse today. On bipap. attempted to take off bipap but patient desat. Hospitalist Physical - Physical exam Narrative exam: Physical Exam: Constitutional: Alert, cooperative. No acute distress. on bipap Head, Ears, Nose: Normocephalic, atraumatic. External ears, nose normal Eyes: Conjunctivae/corneas clear. No icterus. No ptosis. Neck: Supple, no meningeal signs Oral: dentition fair, no thrush Cardiovascular: S1, S2 normal. Respiratory: rhonchi bl. exp wheeze improved. GI: Soft, non-tender; bowel sounds normal. No peritoneal signs. Musculoskeletal: No pedal edema, no cyanosis. Skin: No rash or abscess Hem/Lymphatic: No palpable cervical or supraclavicular nodes. No lymphangitis Psych: Mood ok. Affect normal Neurological: Awake, alert, oriented. No gross abnormality - Constitutional Vitals: Temp Pulse Resp BP Pulse Ox 98.0 F 88 28 H 149/83 98 01/18/22 12:00 01/18/22 12:39 01/18/22 12:39 01/18/22 12:39 01/18/22 12:39 General appearance: Present: no acute distress, well-nourished, obese HEART Score - HEART Score Troponin: Troponin T < 0.010 ng/mL (0.00-0.029) 01/13/22 15:09 Results - Labs CBC & Chem 7: 01/16/22 03:58 01/16/22 03:58 Labs: Laboratory Last Values WBC 11.9 K/mm3 (4.5-11.0) H 01/16/22 03:58 RBC 5.74 M/mm3 (3.65-5.03) H 01/16/22 03:58 Hgb 12.0 gm/dl (11.8-15.2) 01/16/22 03:58 Hct 40.3 % (35.5-45.6) 01/16/22 03:58 MCV 70 fl (84-94) L 01/16/22 03:58 MCH 21 pg (28-32) L 01/16/22 03:58 MCHC 30 % (32-34) L 01/16/22 03:58 RDW 17.9 % (13.2-15.2) H 01/16/22 03:58 Plt Count 461 K/mm3 (140-440) H 01/16/22 03:58 Lymph % (Auto) 11.3 % (13.4-35.0) L 01/15/22 04:28 [place] % (Auto) 4.2 % (0.0-7.3) 01/15/22 04:28 Eos % (Auto) 0.0 % (0.0-4.3) 01/15/22 04:28 Baso % (Auto) 0.5 % (0.0-1.8) 01/15/22 04:28 Lymph # (Auto) 0.9 K/mm3 (1.2-5.4) L 01/15/22 04:28 [place] # (Auto) 0.3 K/mm3 (0.0-0.8) 01/15/22 04:28 Eos # (Auto) 0.0 K/mm3 (0.0-0.4) 01/15/22 04:28 Baso # (Auto) 0.0 K/mm3 (0.0-0.1) 01/15/22 04:28 Seg Neutrophils % 84.0 % (40.0-70.0) H 01/15/22 04:28 Seg Neutrophils # 6.6 K/mm3 (1.8-7.7) 01/15/22 04:28 PT 13.5 Sec. (12.2-14.9) 01/13/22 15:09 INR 0.93 (0.87-1.13) 01/13/22 15:09 APTT 29.6 Sec. (24.2-36.6) 01/13/22 15:09 D-Dimer 942.90 ng/mlDDU (0-234) H 01/13/22 15:09 ABG pH 7.425 pH Units (7.350-7.450) 01/15/22 05:20 ABG pCO2 43.6 mm Hg 01/15/22 05:20 ABG pO2 71.2 mm Hg (80.0-90.0) L 01/15/22 05:20 ABG HCO3 28.0 mmol/L (20.0-26.0) H 01/15/22 05:20 ABG O2 Saturation 97.6 % (95.0-99.0) 01/15/22 05:20 ABG O2 Content 8.7 (0.0-44) 01/15/22 05:20 ABG Base Excess 3.3 mmol/L (-2.0-3.0) H 01/15/22 05:20 ABG Hemoglobin 6.4 gm/dl (14.0-18.0) L 01/15/22 05:20 ABG Carboxyhemoglobin 2.3 % (0.0-5.0) 01/15/22 05:20 ABG Methemoglobin 0.4 % (0.0-1.5) 01/15/22 05:20 Oxyhemoglobin 94.9 % (95.0-99.0) L 01/15/22 05:20 FiO2 30 % 01/15/22 05:20 Sodium 135 mmol/L (137-145) L 01/16/22 03:58 Potassium 4.9 mmol/L (3.6-5.0) 01/16/22 03:58 Chloride 101.3 mmol/L (98-107) 01/16/22 03:58 Carbon Dioxide 28 mmol/L (22-30) 01/16/22 03:58 Anion Gap 11 mmol/L 01/16/22 03:58 BUN 25 mg/dL (9-20) H 01/16/22 03:58 Creatinine 0.7 mg/dL (0.8-1.3) L 01/16/22 03:58 Estimated GFR > 60 ml/min 01/16/22 03:58 BUN/Creatinine Ratio 36 % 01/16/22 03:58 Glucose 152 mg/dL (75-100) H 01/16/22 03:58 POC Glucose 186 mg/dL (70-105) H 01/18/22 12:07 Calcium 8.9 mg/dL (8.4-10.2) 01/16/22 03:58 Phosphorus 4.50 mg/dL (2.5-4.5) 01/16/22 03:58 Magnesium 2.70 mg/dL (1.7-2.3) H 01/16/22 03:58 Ferritin 28.2 ng/mL (30.0-300.0) L 01/14/22 11:07 Total Bilirubin 0.30 mg/dL (0.1-1.2) 01/15/22 04:28 AST 12 units/L (5-40) 01/15/22 04:28 ALT 11 units/L (7-56) 01/15/22 04:28 Alkaline Phosphatase 131 units/L (35-129) H 01/15/22 04:28 Lactate Dehydrogenase 215 units/L (91-180) H 01/14/22 11:07 Troponin T < 0.010 ng/mL (0.00-0.029) 01/13/22 15:09 C-Reactive Protein 7.60 mg/dL (0.00-1.30) H 01/14/22 11:07 NT-Pro-B Natriuret Pep 28.03 pg/mL (0-450) 01/15/22 10:09 Total Protein 7.0 g/dL (6.3-8.2) 01/15/22 04:28 Albumin 4.0 g/dL (3.9-5) 01/15/22 04:28 Albumin/Globulin Ratio 1.3 % 01/15/22 04:28 Procalcitonin < 0.05 ng/mL (<0.15) 01/14/22 11:07 Urine Opiates Screen Negative 01/14/22 08:49 Urine Methadone Screen Negative 01/14/22 08:49 Ur Barbiturates Screen Negative 01/14/22 08:49 Ur Phencyclidine Scrn Negative 01/14/22 08:49 Ur Amphetamines Screen Negative 01/14/22 08:49 U Benzodiazepines Scrn Positive 01/14/22 08:49 Urine Cocaine Screen Negative 01/14/22 08:49 U Marijuana (THC) Screen Negative 01/14/22 08:49 Drugs of Abuse Note Disclamer 01/14/22 08:49 SARS-CoV-2 (PCR) Negative (Negative) 01/14/22 10:30 Multani/IV: Voiding Method Urinal Active Medications - Current Medications Current Medications: Generic Name Dose Route Start Last Admin Trade Name Freq PRN Reason Stop Dose Admin Acetaminophen 650 mg 01/13/22 23:58 01/18/22 02:16 Acetaminophen 325 Mg Tab PO 650 mg Q6H PRN Administration Pain MILD(1-3)/Fever >100.5/CHANG Albuterol/Ipratropium 1 ampul 01/14/22 00:00 01/18/22 12:35 Ipratropium/Albuterol Sulfate 3 Ml Ampul.Neb IH 1 ampul Q4HRT ZAKI Administration Alprazolam 0.5 mg 01/14/22 08:22 01/18/22 02:17 Alprazolam 0.5 Mg Tab PO 0.5 mg Q8H PRN Administration Anxiety Enoxaparin Sodium 40 mg 01/14/22 22:00 01/17/22 21:38 Enoxaparin 40 Mg/0.4 Ml Inj SUB-Q 40 mg QHS ZAKI Administration Protocol Famotidine 20 mg 01/14/22 10:00 01/18/22 10:02 Famotidine 20 Mg Tab PO 20 mg BID ZAKI Administration Furosemide 40 mg 01/18/22 14:17 Furosemide 40 Mg/4 Ml Inj IV 01/18/22 15:30 ONCE NR Hydralazine HCl 10 mg 01/14/22 08:28 01/18/22 00:28 Hydralazine 20 Mg/1 Ml Inj IV 10 mg Q4HR PRN Administration Hypertension Hydrochlorothiazide 12.5 mg 01/15/22 11:00 01/18/22 10:02 Hydrochlorothiazide 12.5 Mg Cap PO 12.5 mg QDAY ZAKI Administration Insulin Glargine 15 units 01/15/22 22:00 01/17/22 21:40 Insulin Glargine 100 Units/Ml SUB-Q 15 units QHS ZAKI Administration Insulin Human Regular 0 units 01/16/22 11:30 01/18/22 12:25 Insulin Regular, Human 100 Units/1 Ml SUB-Q 3 units ACHS [facility] Administration Protocol Labetalol HCl 10 mg 01/14/22 16:00 01/18/22 01:39 Labetalol 20 Mg/4 Ml Inj IV 10 mg Q4HR PRN Administration Hypertension Lisinopril 20 mg 01/15/22 11:00 01/18/22 10:02 Lisinopril 20 Mg Tab PO 20 mg QDAY ZAKI Administration Magnesium Hydroxide 30 ml 01/13/22 23:58 Magnesium Hydroxide (Mom) Oral Liqd Udc PO Q4H PRN Constipation Methylprednisolone Sodium Succinate 40 mg 01/17/22 14:00 01/18/22 05:33 Methylprednisolone Sod Succinate 40 Mg/1 Ml Inj IV 40 mg Q8HR ZAKI Administration Ondansetron HCl 4 mg 01/13/22 23:31 Ondansetron 4 Mg/2 Ml Inj IV Q8H PRN Nausea And Vomiting Oxycodone/Acetaminophen 1 tab 01/13/22 23:34 Oxycodone /Acetaminophen 5-325mg Tab PO Q6H PRN Pain , Severe (7-10) Sodium Chloride 10 ml 01/13/22 23:31 01/16/22 05:47 Sodium Chloride 0.9% 10 Ml Flush Syringe IV 10 ml PRN PRN Administration LINE FLUSH Sodium Chloride 10 ml 01/14/22 10:00 01/18/22 10:03 Sodium Chloride 0.9% 10 Ml Flush Syringe IV 10 ml BID ZAKI Administration Nutrition/Malnutrition Assess - Dietary Evaluation Nutrition/Malnutrition Findings: Nutrition Notes Start: 01/14/22 10:38 Freq: Status: Active Protocol: Document 01/14/22 10:38 EVI (Rec: 01/14/22 10:49 EVI [id number]) Nutrition Notes Need for Assessment generated from: MD Order,parking assistant,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 Labs/Tests 01/14: BUN 8, Crea 0.6. Pertinent Medications 01/14: Nutritionally unremarkable. 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 Weight Status Morbidly Obese Subjective/Other Information RD consult for nutrition education assessment. No reports available on Pt's PO intake of meals at the time , will assess at F/U. Pt is on Bi-PaP+, O2 saturation @ 88%, according to Physical Assessment History notes. Pt still in critical condition , not a candidate for Nutrition Education at the time, will assess feasibility on F/U. Pt shows an unspecified area of concern for skin risk at the time, according to Physical Assessment History notes. Percent of energy/protein needs met: Prescribed Cardiac Diet provides for energy/protein needs (2,230 Kcal/85 g) during LOS. Burn Absent Trauma Absent GI Symptoms None Food Allergy No Skin Integrity/Comment Unspecified area of concern. Minimum of two criteria No Fluid Accumulation N/A Reduced Hole Digger Strength N/A (non-severe) Protein-Calorie Malnutrition N\A #1 Nutrition Diagnosis Overweight/obesity Etiology Uncertain, possibly associated with lifestyle factors. As Evidenced by Signs and Symptoms BMI: 195 Kg/m2. Is patient on ventilator? No Is Patient Ambulatory and/or Out of Bed No REE-([facility]-confined to bed) 3373.920 Kcal/Kg value to use for calculation 10 Approximate Energy Requirements Using 1950 kcal/Kg Calculation Used for Recommendations Kcal/kg Additional Notes Protein: <2.5 g/Kg IBW; <175 g /day. Fluids: 1 ml/Kcal, or as per MD. Nutrition Intervention Change Diet Order: Continue Cardiac Diet as tolerated. Goal #1 Adjust the dietary intervention to better serve Pt's needs and clinical conditions during LOS. Follow-Up By: 01/20/22 Additional Comments Nutrition education will be provided at F/U, if feasible. Continue monitoring food tolerance, %PO intake of meals , and BM.
--- NOTE | 2022-01-18 15:57 | XRay Report ---
CHEST 1 VIEW 01/18/2022 2:50 PM INDICATION / CLINICAL INFORMATION: pulmonary edema. COMPARISON: 01/16/2022 FINDINGS: SUPPORT DEVICES: None. HEART / MEDIASTINUM: Stable borderline heart size LUNGS / PLEURA: Bilateral infiltrates or pulmonary edema has essentially resolved. There is mild cent ral pulmonary venous congestion remaining. No pleural effusion or pneumothorax. ADDITIONAL FINDINGS: No significant additional findings. IMPRESSION: 1. Significant improvement as described Signer Name: Mike Adames Jr, MD Signed: 01/18/2022 3:52 PM Workstation Name: [email or web address]
[2022-01-18] MEDS: FUROSEMIDE 40 MG/4 ML INJ IV SCH (17:29)
[2022-01-18] MEDS: ENOXAPARIN 40 MG/0.4 ML INJ SUB-Q SCH (21:21)
[2022-01-18] MEDS: INSULIN GLARGINE 100 UNITS/ML SUB-Q SCH (21:22)
[2022-01-19] MEDS: IPRATROPIUM/ALBUTEROL SULFATE 3 ML AMPUL.NEB IH SCH ×4 (04:36→16:33)
[2022-01-19] MEDS: FUROSEMIDE 40 MG/4 ML INJ IV SCH (06:35)
[2022-01-19] MEDS: methylPREDNISolone Sod Succinate 40 MG/1 ML INJ IV SCH ×2 (06:35→14:36)
[2022-01-19] MEDS: FAMOTIDINE 20 MG TAB PO SCH (09:48)
[2022-01-19] MEDS: LISINOPRIL 20 MG TAB PO SCH (09:48)
[2022-01-19] MEDS: INSULIN REGULAR, HUMAN 100 UNITS/1 ML SUB-Q SCH ×3 (09:49→17:34)
--- NOTE | 2022-01-19 13:08 | Progress Note ---
Assessment and Plan 46 y/o morbidly obese male with acute on chronic respiratory failure, COPD exacerbation and ANNTETA with likely OHS as well. 01/19/22: Diuresed well with lasix. Do not feel increasing steroids right now is needed. Maybe a component of anxiety adding to this. Will continue to follow. Wean FiO2 for sats >88% 01/18/22: Was negative over 700 in the last 24 hours but still with high nasal cannula requirement. Consider switching hCTZ to lasix and see if increased diuresis will help with O2 requirements. PER CM note, needs repeat walk test as patient needs a large concentrator for home. Continue NIV prn during the day and QHS. If oxygen requirement doesn't improve with diuresis, may need to go back up on steroids. 01/17/22: Per patient on 5-6 liters at home and thinks his concentrator goes to 6. Needs a higher concentrator. Will speak with CM about this. Per rounds, Medicaid is active and info will be sent to [facility] [place] [place] to service his current machine. Ok with dropping steroids down today to [id number]. Continue scheduled nebs. Would also be ok with changing to oral abx therapy as well. No objection to floor transfer if feasible. Hopeful discharge in the next 48-72 hours. 1. Continue steroids 2. Wean FiO2 as tolerated, baseline flow of oxygen at home is about 5-6 3. Daily net negative volume state 4. Scheduled nebs 5. weight loss if possible Subjective Date of service: 01/19/22 Principal diagnosis: COPD exac. Interval history: No acute events. Wore NIV last night. Not discharged yesterday secondary to patient requesting to be placed on NIV therapy multiple times throughout day. BP stable, sats good, but just wanted to wear mask. Objective Vital Signs - 12hr 01/19/22 01/19/22 01/19/22 01:30 02:30 03:00 Temperature Pulse Rate 85 90 90 Pulse Rate [ Bilateral] Pulse Rate [ From Monitor] Respiratory 20 24 22 Rate Respiratory Rate [Bilateral ] Blood Pressure 155/77 125/70 123/68 O2 Sat by Pulse 95 99 95 Oximetry 01/19/22 01/19/22 01/19/22 03:30 03:45 04:00 Temperature Pulse Rate 86 88 89 Pulse Rate [ Bilateral] Pulse Rate [ 90 From Monitor] Respiratory 22 23 Rate Respiratory Rate [Bilateral ] Blood Pressure 132/71 125/71 O2 Sat by Pulse 95 96 Oximetry 01/19/22 01/19/22 01/19/22 04:30 04:36 04:37 Temperature Pulse Rate 78 81 Pulse Rate [ 85 Bilateral] Pulse Rate [ From Monitor] Respiratory 20 21 Rate Respiratory 21 Rate [Bilateral ] Blood Pressure 121/66 121/66 O2 Sat by Pulse 98 100 Oximetry 01/19/22 01/19/22 01/19/22 05:00 05:30 06:00 Temperature Pulse Rate 77 84 89 Pulse Rate [ Bilateral] Pulse Rate [ From Monitor] Respiratory 20 21 19 Rate Respiratory Rate [Bilateral ] Blood Pressure 109/70 128/70 120/78 O2 Sat by Pulse 96 96 95 Oximetry 01/19/22 01/19/22 01/19/22 06:30 06:46 07:01 Temperature 98.6 F Pulse Rate 87 85 Pulse Rate [ Bilateral] Pulse Rate [ From Monitor] Respiratory 18 17 Rate Respiratory Rate [Bilateral ] Blood Pressure 139/84 114/61 O2 Sat by Pulse 97 97 Oximetry 01/19/22 01/19/22 01/19/22 07:30 08:00 08:09 Temperature 98.4 F Pulse Rate 82 84 Pulse Rate [ 90 Bilateral] Pulse Rate [ 82 From Monitor] Respiratory 16 13 Rate Respiratory 22 Rate [Bilateral ] Blood Pressure 137/77 144/82 O2 Sat by Pulse 94 95 Oximetry 01/19/22 01/19/22 01/19/22 08:30 09:01 09:31 Temperature Pulse Rate 121 H 100 H 94 H Pulse Rate [ Bilateral] Pulse Rate [ From Monitor] Respiratory 22 20 Rate Respiratory Rate [Bilateral ] Blood Pressure 135/84 140/71 119/70 O2 Sat by Pulse 89 89 92 Oximetry 01/19/22 01/19/22 01/19/22 09:48 10:00 10:30 Temperature Pulse Rate 102 H 94 H 89 Pulse Rate [ Bilateral] Pulse Rate [ From Monitor] Respiratory 23 17 Rate Respiratory Rate [Bilateral ] Blood Pressure 102/56 141/78 148/73 O2 Sat by Pulse 92 Oximetry 01/19/22 01/19/22 01/19/22 11:00 11:30 12:00 Temperature 98.2 F Pulse Rate 107 H 99 H 102 H Pulse Rate [ Bilateral] Pulse Rate [ 85 From Monitor] Respiratory 19 20 Rate Respiratory Rate [Bilateral ] Blood Pressure 111/57 131/81 132/83 O2 Sat by Pulse 95 95 93 Oximetry 01/19/22 12:30 Temperature Pulse Rate 98 H Pulse Rate [ Bilateral] Pulse Rate [ From Monitor] Respiratory 22 Rate Respiratory Rate [Bilateral ] Blood Pressure 135/82 O2 Sat by Pulse 97 Oximetry Constitutional: alert, other (critically ill) Eyes: non-icteric ENT: oropharynx moist Neck: supple Effort: normal Ascultation: Bilateral: wheezes Tactile fremitus: Right: other Cardiovascular: other (RRR w/ no mrg) Gastrointestinal: normoactive bowel sounds, soft, non-tender, non-distended Integumentary: normal Extremities: no cyanosis, no edema Neurologic: normal mental status, non-focal exam, pupils equal and round Psychiatric: mood appropriate, affect normal CBC and BMP: 01/16/22 03:58 01/16/22 03:58 ABG, PT/INR, D-dimer: ABG ABG pH 7.425 pH Units (7.350-7.450) 01/15/22 05:20 ABG pCO2 43.6 mm Hg 01/15/22 05:20 ABG pO2 71.2 mm Hg (80.0-90.0) L 01/15/22 05:20 ABG O2 Saturation 97.6 % (95.0-99.0) 01/15/22 05:20 PT/INR, D-dimer PT 13.5 Sec. (12.2-14.9) 01/13/22 15:09 INR 0.93 (0.87-1.13) 01/13/22 15:09 D-Dimer 942.90 ng/mlDDU (0-234) H 01/13/22 15:09 Abnormal lab findings: Abnormal Labs 01/13/22 01/13/22 01/13/22 15:09 15:09 15:09 WBC RBC 5.26 H Hgb 11.3 L MCV 69 L MCH 22 L MCHC 31 L RDW 18.3 H Plt Count Lymph % (Auto) Emery % (Auto) 11.2 H Lymph # (Auto) Seg Neutrophils % D-Dimer 942.90 H ABG pO2 ABG HCO3 ABG Base Excess ABG Hemoglobin Oxyhemoglobin Sodium Chloride BUN 8 L Creatinine 0.6 L Glucose POC Glucose Magnesium Ferritin Alkaline Phosphatase 138 H Lactate Dehydrogenase C-Reactive Protein 01/13/22 01/14/22 01/14/22 15:45 11:07 11:07 WBC RBC Hgb MCV MCH MCHC RDW Plt Count Lymph % (Auto) Emery % (Auto) Lymph # (Auto) Seg Neutrophils % D-Dimer ABG pO2 ABG HCO3 ABG Base Excess ABG Hemoglobin 11.9 L Oxyhemoglobin 94.7 L Sodium Chloride BUN Creatinine Glucose POC Glucose Magnesium Ferritin 28.2 L Alkaline Phosphatase Lactate Dehydrogenase 215 H C-Reactive Protein 7.60 H 01/14/22 01/15/22 01/15/22 16:43 04:28 04:28 WBC RBC 5.72 H Hgb MCV 70 L MCH 21 L MCHC 30 L RDW 18.3 H Plt Count Lymph % (Auto) 11.3 L Emery % (Auto) Lymph # (Auto) 0.9 L Seg Neutrophils % 84.0 H D-Dimer ABG pO2 ABG HCO3 ABG Base Excess ABG Hemoglobin Oxyhemoglobin Sodium 131 L Chloride 96.2 L BUN Creatinine 0.6 L Glucose 133 H POC Glucose 122 H Magnesium Ferritin Alkaline Phosphatase 131 H Lactate Dehydrogenase C-Reactive Protein 01/15/22 01/15/22 01/15/22 05:20 11:05 17:28 WBC RBC Hgb MCV MCH MCHC RDW Plt Count Lymph % (Auto) Emery % (Auto) Lymph # (Auto) Seg Neutrophils % D-Dimer ABG pO2 71.2 L ABG HCO3 28.0 H ABG Base Excess 3.3 H ABG Hemoglobin 6.4 L Oxyhemoglobin 94.9 L Sodium Chloride BUN Creatinine Glucose POC Glucose 222 H 298 H Magnesium Ferritin Alkaline Phosphatase Lactate Dehydrogenase C-Reactive Protein 01/15/22 01/16/22 01/16/22 21:15 03:01 03:58 WBC 11.9 H RBC 5.74 H Hgb MCV 70 L MCH 21 L MCHC 30 L RDW 17.9 H Plt Count 461 H Lymph % (Auto) Emery % (Auto) Lymph # (Auto) Seg Neutrophils % D-Dimer ABG pO2 ABG HCO3 ABG Base Excess ABG Hemoglobin Oxyhemoglobin Sodium Chloride BUN Creatinine Glucose POC Glucose 112 H 159 H Magnesium Ferritin Alkaline Phosphatase Lactate Dehydrogenase C-Reactive Protein 01/16/22 01/16/22 01/16/22 03:58 05:41 11:39 WBC RBC Hgb MCV MCH MCHC RDW Plt Count Lymph % (Auto) Emery % (Auto) Lymph # (Auto) Seg Neutrophils % D-Dimer ABG pO2 ABG HCO3 ABG Base Excess ABG Hemoglobin Oxyhemoglobin Sodium 135 L Chloride BUN 25 H Creatinine 0.7 L Glucose 152 H POC Glucose 135 H 203 H Magnesium 2.70 H Ferritin Alkaline Phosphatase Lactate Dehydrogenase C-Reactive Protein 01/16/22 01/16/22 01/17/22 16:23 22:17 09:21 WBC RBC Hgb MCV MCH MCHC RDW Plt Count Lymph % (Auto) Emery % (Auto) Lymph # (Auto) Seg Neutrophils % D-Dimer ABG pO2 ABG HCO3 ABG Base Excess ABG Hemoglobin Oxyhemoglobin Sodium Chloride BUN Creatinine Glucose POC Glucose 117 H 118 H 255 H Magnesium Ferritin Alkaline Phosphatase Lactate Dehydrogenase C-Reactive Protein 01/17/22 01/17/22 01/17/22 11:26 12:32 16:11 WBC RBC Hgb MCV MCH MCHC RDW Plt Count Lymph % (Auto) Emery % (Auto) Lymph # (Auto) Seg Neutrophils % D-Dimer ABG pO2 ABG HCO3 ABG Base Excess ABG Hemoglobin Oxyhemoglobin Sodium Chloride BUN Creatinine Glucose POC Glucose 176 H 237 H 124 H Magnesium Ferritin Alkaline Phosphatase Lactate Dehydrogenase C-Reactive Protein 01/17/22 01/18/22 01/18/22 21:32 08:00 12:07 WBC RBC Hgb MCV MCH MCHC RDW Plt Count Lymph % (Auto) Emery % (Auto) Lymph # (Auto) Seg Neutrophils % D-Dimer ABG pO2 ABG HCO3 ABG Base Excess ABG Hemoglobin Oxyhemoglobin Sodium Chloride BUN Creatinine Glucose POC Glucose 259 H 144 H 186 H Magnesium Ferritin Alkaline Phosphatase Lactate Dehydrogenase C-Reactive Protein 01/18/22 01/18/22 01/19/22 17:03 21:13 07:11 WBC RBC Hgb MCV MCH MCHC RDW Plt Count Lymph % (Auto) Emery % (Auto) Lymph # (Auto) Seg Neutrophils % D-Dimer ABG pO2 ABG HCO3 ABG Base Excess ABG Hemoglobin Oxyhemoglobin Sodium Chloride BUN Creatinine Glucose POC Glucose 150 H 133 H 164 H Magnesium Ferritin Alkaline Phosphatase Lactate Dehydrogenase C-Reactive Protein 01/19/22 11:50 WBC RBC Hgb MCV MCH MCHC RDW Plt Count Lymph % (Auto) Emery % (Auto) Lymph # (Auto) Seg Neutrophils % D-Dimer ABG pO2 ABG HCO3 ABG Base Excess ABG Hemoglobin Oxyhemoglobin Sodium Chloride BUN Creatinine Glucose POC Glucose 225 H Magnesium Ferritin Alkaline Phosphatase Lactate Dehydrogenase C-Reactive Protein
--- NOTE | 2022-01-19 15:19 | Progress Note ---
Assessment and Plan Assessment and plan: Interval history: This is a 46-year-old morbidly obese male with COPD, former tobacco abuse, oxygen dependency at home, ANNETTA with CPAP use who presents the emergency department on 01/13 with shortness of breath ongoing for the past 3 days while being out of his home oxygen for about 3 days. Upon arrival to the emergency department patient was tachypneic and tachycardic and found to be wheezing and was placed on BiPAP with nebulizing treatments, D-dimer noted at 942, CXR showed CHF/volume overload with bibasilar pulmonary edema and CTA of the chest showed no evidence of pulm embolism, bilateral patchy consolidation throughout both lungs suggestive of multifocal pneumonia, likely reactive mediastinal lymphadenopathy. Patient was admitted to the hospital service on empiric antibiotics and BiPAP use for COPD exacerbation. Hospital Course to Date: 01/14: Very anxious this am s/p 1mg IV versed with positive response. Patient remains on Bipap at 60% Fio2, 16/01, SPO2 above 95%. COVID and Flu PCR pending. Continue empiric IV Abx and IV steroids. Pulmonary and ID consult pending. Patient unable to tolerate Bipap off at this am, unable to administer PO meds. PRN hydralazine added for hypertension. 01/15: Remains stable on the Bipap, still on 60% Fio2. COVID PCR negative. This am ABG noted. Wheezing and bibasilar crakles appreciated this morning. X1 dose of IV lasix ordered, will check BNP and 2D echo. Continue current IV Abx and wean O2 supplementation as tolerated for SPO2 above 88%. Pulmonary is also following. 01/16: Patient transferred to [facility] bed, stable off of BiPAP on salter at 6 L. Patient states that he uses 6 L at home. Patient stated that his noninvasive ventilation stopped working 2 weeks ago and he has not been able to get it serviced and states that he recently was granted disability insurance. manager advanced aware. 01/17: CM working on home health care arrangements. Anticipate d/c in next 24-48 hrs. 01/18: Worse today. Agree with pulmonology assessment. may need additional volume removed. will order cxr. hctz d/c, ordered lasix 40 mg IV x 2 doses. Continue NIV prn and qhs. 01/19: Transitioned to bipap to salter NC 8l/min. CXR ordered demonstrates radiographic improvement of pulmonary edema. Agree with pulmonology, there is a definitely a component of anxiety. Will start buspar for anxiety. CM working on [facility] arrangement for patient. Assessment and Plan: Neuro: Generalized anxiety disorder -Reorientation as needed -Maintain sleep-wake cycle -As needed analgesia - buspar for anxiety Cardiac: Hypertensive emergency (resolved), hypertension -Presented with a blood pressure of 200/105 -As needed hydralazine and labetalol -Antihypertensive regimen: Hydrochlorothiazide, lisinopril -Blood pressure monitoring per protocol -Echocardiogram shows LVEF 55 to 60%, moderate concentric LVH Respiratory: Acute on chronic hypoxic respiratory failure, COPD exacerbation, h/o ANNETTA on CPAP -CCM consulted, appreciate recommendations -Presented with shortness of breath for 3 days, SPO2 in the 80s with 2 L of nasal cannula in the ED -S/p continuous BiPAP -Wean to salter -BiPAP as needed and nightly -Steroids -Pulmonary hygiene -SPO2 monitoring -S/p Lasix -Duoneb GI: Morbid obesity -24 hours +20 mL -PPI -Cardiac diet -Encouraged lifestyle and dietary modifications outpatient : NAD -Monitor intake and output -Renally dose medications -Avoid nephrotoxic medications -Trend BMP ID: COPD exacerbation, multifocal pneumonia -CT showed multifocal pneumonia -Antibiotic therapy with Zithromax and Rocephin -COVID-19 PCR negative -Flu PCR pending -Trend WBC and fever curve Endo: NAD -Avoid hypoglycemia Heme: Elevated D-dimer, leukocytosis -CTA chest shows no evidence of pulmonary embolism, bilateral patchy consolidation throughout the both lungs suggestive of multifocal pneumonia, mediastinal lymphadenopathy likely reactive -Bilateral lower extremity Doppler ultrasound negative for DVT -Trend CBC -Transfuse hemoglobin less than 7 -SCDs to BLE while in bed The high probability of a clinically significant, sudden or life threatening deterioration of the [multiple] system(s) required my full and direct attention, intervention and personal management. The aggregate critical care time was [60] minutes. This time is in addition to time spent performing reported procedures but includes the following: [x] Data Review and interpretation [x] Patient assessment and monitoring of vital signs [x] Documentation [x] Medication orders and management History Interval history: Feeling better today. Transitioned to 8l/min salter. Hospitalist Physical - Physical exam Narrative exam: Physical Exam: Constitutional: Alert, cooperative. No acute distress. on bipap Head, Ears, Nose: Normocephalic, atraumatic. External ears, nose normal Eyes: Conjunctivae/corneas clear. No icterus. No ptosis. Neck: Supple, no meningeal signs Oral: dentition fair, no thrush Cardiovascular: S1, S2 normal. Respiratory: rhonchi bl. exp wheeze improved. GI: Soft, non-tender; bowel sounds normal. No peritoneal signs. Musculoskeletal: No pedal edema, no cyanosis. Skin: No rash or abscess Hem/Lymphatic: No palpable cervical or supraclavicular nodes. No lymphangitis Psych: Mood ok. Affect normal Neurological: Awake, alert, oriented. No gross abnormality - Constitutional Vitals: Temp Pulse Resp BP Pulse Ox 98.0 F 70 22 106/26 99 01/19/22 12:00 01/19/22 14:34 01/19/22 14:34 01/19/22 14:34 01/19/22 14:34 General appearance: Present: no acute distress, well-nourished, obese HEART Score - HEART Score Troponin: Troponin T < 0.010 ng/mL (0.00-0.029) 01/13/22 15:09 Results - Labs CBC & Chem 7: 01/16/22 03:58 01/16/22 03:58 Labs: Laboratory Last Values WBC 11.9 K/mm3 (4.5-11.0) H 01/16/22 03:58 RBC 5.74 M/mm3 (3.65-5.03) H 01/16/22 03:58 Hgb 12.0 gm/dl (11.8-15.2) 01/16/22 03:58 Hct 40.3 % (35.5-45.6) 01/16/22 03:58 MCV 70 fl (84-94) L 01/16/22 03:58 MCH 21 pg (28-32) L 01/16/22 03:58 MCHC 30 % (32-34) L 01/16/22 03:58 RDW 17.9 % (13.2-15.2) H 01/16/22 03:58 Plt Count 461 K/mm3 (140-440) H 01/16/22 03:58 Lymph % (Auto) 11.3 % (13.4-35.0) L 01/15/22 04:28 Emmons % (Auto) 4.2 % (0.0-7.3) 01/15/22 04:28 Eos % (Auto) 0.0 % (0.0-4.3) 01/15/22 04:28 Baso % (Auto) 0.5 % (0.0-1.8) 01/15/22 04:28 Lymph # (Auto) 0.9 K/mm3 (1.2-5.4) L 01/15/22 04:28 Emmons # (Auto) 0.3 K/mm3 (0.0-0.8) 01/15/22 04:28 Eos # (Auto) 0.0 K/mm3 (0.0-0.4) 01/15/22 04:28 Baso # (Auto) 0.0 K/mm3 (0.0-0.1) 01/15/22 04:28 Seg Neutrophils % 84.0 % (40.0-70.0) H 01/15/22 04:28 Seg Neutrophils # 6.6 K/mm3 (1.8-7.7) 01/15/22 04:28 PT 13.5 Sec. (12.2-14.9) 01/13/22 15:09 INR 0.93 (0.87-1.13) 01/13/22 15:09 APTT 29.6 Sec. (24.2-36.6) 01/13/22 15:09 D-Dimer 942.90 ng/mlDDU (0-234) H 01/13/22 15:09 ABG pH 7.425 pH Units (7.350-7.450) 01/15/22 05:20 ABG pCO2 43.6 mm Hg 01/15/22 05:20 ABG pO2 71.2 mm Hg (80.0-90.0) L 01/15/22 05:20 ABG HCO3 28.0 mmol/L (20.0-26.0) H 01/15/22 05:20 ABG O2 Saturation 97.6 % (95.0-99.0) 01/15/22 05:20 ABG O2 Content 8.7 (0.0-44) 01/15/22 05:20 ABG Base Excess 3.3 mmol/L (-2.0-3.0) H 01/15/22 05:20 ABG Hemoglobin 6.4 gm/dl (14.0-18.0) L 01/15/22 05:20 ABG Carboxyhemoglobin 2.3 % (0.0-5.0) 01/15/22 05:20 ABG Methemoglobin 0.4 % (0.0-1.5) 01/15/22 05:20 Oxyhemoglobin 94.9 % (95.0-99.0) L 01/15/22 05:20 FiO2 30 % 01/15/22 05:20 Sodium 135 mmol/L (137-145) L 01/16/22 03:58 Potassium 4.9 mmol/L (3.6-5.0) 01/16/22 03:58 Chloride 101.3 mmol/L (98-107) 01/16/22 03:58 Carbon Dioxide 28 mmol/L (22-30) 01/16/22 03:58 Anion Gap 11 mmol/L 01/16/22 03:58 BUN 25 mg/dL (9-20) H 01/16/22 03:58 Creatinine 0.7 mg/dL (0.8-1.3) L 01/16/22 03:58 Estimated GFR > 60 ml/min 01/16/22 03:58 BUN/Creatinine Ratio 36 % 01/16/22 03:58 Glucose 152 mg/dL (75-100) H 01/16/22 03:58 POC Glucose 225 mg/dL (70-105) H 01/19/22 11:50 Calcium 8.9 mg/dL (8.4-10.2) 01/16/22 03:58 Phosphorus 4.50 mg/dL (2.5-4.5) 01/16/22 03:58 Magnesium 2.70 mg/dL (1.7-2.3) H 01/16/22 03:58 Ferritin 28.2 ng/mL (30.0-300.0) L 01/14/22 11:07 Total Bilirubin 0.30 mg/dL (0.1-1.2) 01/15/22 04:28 AST 12 units/L (5-40) 01/15/22 04:28 ALT 11 units/L (7-56) 01/15/22 04:28 Alkaline Phosphatase 131 units/L (35-129) H 01/15/22 04:28 Lactate Dehydrogenase 215 units/L (91-180) H 01/14/22 11:07 Troponin T < 0.010 ng/mL (0.00-0.029) 01/13/22 15:09 C-Reactive Protein 7.60 mg/dL (0.00-1.30) H 01/14/22 11:07 NT-Pro-B Natriuret Pep 28.03 pg/mL (0-450) 01/15/22 10:09 Total Protein 7.0 g/dL (6.3-8.2) 01/15/22 04:28 Albumin 4.0 g/dL (3.9-5) 01/15/22 04:28 Albumin/Globulin Ratio 1.3 % 01/15/22 04:28 Procalcitonin < 0.05 ng/mL (<0.15) 01/14/22 11:07 Urine Opiates Screen Negative 01/14/22 08:49 Urine Methadone Screen Negative 01/14/22 08:49 Ur Barbiturates Screen Negative 01/14/22 08:49 Ur Phencyclidine Scrn Negative 01/14/22 08:49 Ur Amphetamines Screen Negative 01/14/22 08:49 U Benzodiazepines Scrn Positive 01/14/22 08:49 Urine Cocaine Screen Negative 01/14/22 08:49 U Marijuana (THC) Screen Negative 01/14/22 08:49 Drugs of Abuse Note Disclamer 01/14/22 08:49 SARS-CoV-2 (PCR) Negative (Negative) 01/14/22 10:30 Multani/IV: Voiding Method Urinal Active Medications - Current Medications Current Medications: Generic Name Dose Route Start Last Admin Trade Name Freq PRN Reason Stop Dose Admin Acetaminophen 650 mg 01/13/22 23:58 01/18/22 02:16 Acetaminophen 325 Mg Tab PO 650 mg Q6H PRN Administration Pain MILD(1-3)/Fever >100.5/CHANG Albuterol/Ipratropium 1 ampul 01/14/22 00:00 01/19/22 08:07 Ipratropium/Albuterol Sulfate 3 Ml Ampul.Neb IH 1 ampul Q4HRT ZAKI Administration Alprazolam 0.5 mg 01/14/22 08:22 01/18/22 02:17 Alprazolam 0.5 Mg Tab PO 0.5 mg Q8H PRN Administration Anxiety Enoxaparin Sodium 40 mg 01/14/22 22:00 01/18/22 21:21 Enoxaparin 40 Mg/0.4 Ml Inj SUB-Q 40 mg QHS [facility] Administration Protocol Famotidine 20 mg 01/14/22 10:00 01/19/22 09:48 Famotidine 20 Mg Tab PO 20 mg BID ZAKI Administration Hydralazine HCl 10 mg 01/14/22 08:28 01/18/22 00:28 Hydralazine 20 Mg/1 Ml Inj IV 10 mg Q4HR PRN Administration Hypertension Insulin Glargine 15 units 01/15/22 22:00 01/18/22 21:22 Insulin Glargine 100 Units/Ml SUB-Q 15 units QHS ZAKI Administration Insulin Human Regular 0 units 01/16/22 11:30 01/19/22 12:35 Insulin Regular, Human 100 Units/1 Ml SUB-Q 3 units ACHS ZAKI Administration Protocol Labetalol HCl 10 mg 01/14/22 16:00 01/18/22 01:39 Labetalol 20 Mg/4 Ml Inj IV 10 mg Q4HR PRN Administration Hypertension Lisinopril 20 mg 01/15/22 11:00 01/19/22 09:48 Lisinopril 20 Mg Tab PO 20 mg QDAY ZAKI Administration Magnesium Hydroxide 30 ml 01/13/22 23:58 Magnesium Hydroxide (Mom) Oral Liqd Udc PO Q4H PRN Constipation Methylprednisolone Sodium Succinate 40 mg 01/17/22 14:00 01/19/22 14:36 Methylprednisolone Sod Succinate 40 Mg/1 Ml Inj IV 40 mg Q8HR ZAKI Administration Ondansetron HCl 4 mg 01/13/22 23:31 Ondansetron 4 Mg/2 Ml Inj IV Q8H PRN Nausea And Vomiting Oxycodone/Acetaminophen 1 tab 01/13/22 23:34 Oxycodone /Acetaminophen 5-325mg Tab PO Q6H PRN Pain , Severe (7-10) Sodium Chloride 10 ml 01/13/22 23:31 01/16/22 05:47 Sodium Chloride 0.9% 10 Ml Flush Syringe IV 10 ml PRN PRN Administration LINE FLUSH Sodium Chloride 10 ml 01/14/22 10:00 01/19/22 09:49 Sodium Chloride 0.9% 10 Ml Flush Syringe IV 10 ml BID ZAKI Administration Nutrition/Malnutrition Assess - Dietary Evaluation Nutrition/Malnutrition Findings: Nutrition Notes Start: 01/14/22 10:38 Freq: Status: Active Protocol: Document 01/14/22 10:38 EVI (Rec: 01/14/22 10:49 EVI [id number]) Nutrition Notes Need for Assessment generated from: MD Order,supervisor metal cans,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 Labs/Tests 01/14: BUN 8, Crea 0.6. Pertinent Medications 01/14: Nutritionally unremarkable. Height 5 ft 8 in Weight 195.045 kg [place] Body Weight (kg) 70.00 BMI 65.3 Intake Prior to Admission Good Weight change and time frame Pt denies having loss body weight [employer]. Weight Status Morbidly Obese Subjective/Other Information RD consult for nutrition education assessment. No reports available on Pt's PO intake of meals at the time , will assess at F/U. Pt is on Bi-PaP+, O2 saturation @ 88%, according to Physical Assessment History notes. Pt still in critical condition , not a candidate for Nutrition Education at the time, will assess feasibility on F/U. Pt shows an unspecified area of concern for skin risk at the time, according to Physical Assessment History notes. Percent of energy/protein needs met: Prescribed Cardiac Diet provides for energy/protein needs (2,230 Kcal/85 g) during LOS. Burn Absent Trauma Absent GI Symptoms None Food Allergy No Skin Integrity/Comment Unspecified area of concern. Minimum of two criteria No Fluid Accumulation N/A Reduced Behavioral Scientist Strength N/A (non-severe) Protein-Calorie Malnutrition N\A #1 Nutrition Diagnosis Overweight/obesity Etiology Uncertain, possibly associated with lifestyle factors. As Evidenced by Signs and Symptoms BMI: 195 Kg/m2. Is patient on ventilator? No Is Patient Ambulatory and/or Out of Bed No REE-([facility]-confined to bed) 3373.920 Kcal/Kg value to use for calculation 10 Approximate Energy Requirements Using 1950 kcal/Kg Calculation Used for Recommendations Kcal/kg Additional Notes Protein: <2.5 g/Kg IBW; <175 g /day. Fluids: 1 ml/Kcal, or as per MD. Nutrition Intervention Change Diet Order: Continue Cardiac Diet as tolerated. Goal #1 Adjust the dietary intervention to better serve Pt's needs and clinical conditions during LOS. Follow-Up By: 01/20/22 Additional Comments Nutrition education will be provided at F/U, if feasible. Continue monitoring food tolerance, %PO intake of meals , and BM.
--- NOTE | 2022-01-19 16:37 | Discharge Summary ---
Providers - Providers Date of Admission: 01/13/22 23:34 Date of discharge: 01/19/22 Attending physician: MONIQUE BINGHAM MD 01/13/22 15:05 Consult to Case Management [CONS] Stat Services Needed at Discharge: Home O2 Notified:: psychotherapist social worker for discharge plan for oxygen dependent with no insurance 01/13/22 23:58 Consult to Physician [CONS] Routine Comment: Consulting Provider: DENISE BULLARD Physician Instructions: Reason For Exam: PUI 01/13/22 23:59 Consult to Dietitian/Nutrition [CONS] Routine Physician Instructions: Reason For Exam: Reason for Consult: Diet education Consult to Physician [CONS] Routine Comment: Consulting Provider: INEZ LIZAMA Physician Instructions: Reason For Exam: Acute Respiratory Failure Primary care physician: COMPLAINT EVALUATION OFFICER Hospitalization Reason for admission: shortness of breath Condition: Stable Hospital course: Interval history: This is a 46-year-old morbidly obese male with COPD, former tobacco abuse, oxygen dependency at home, ANNETTA with CPAP use who presents the emergency department on 01/13 with shortness of breath ongoing for the past 3 days while being out of his home oxygen for about 3 days. Upon arrival to the emergency department patient was tachypneic and tachycardic and found to be wheezing and was placed on BiPAP with nebulizing treatments, D-dimer noted at 942, CXR showed CHF/volume overload with bibasilar pulmonary edema and CTA of the chest showed no evidence of pulm embolism, bilateral patchy consolidation throughout both lungs suggestive of multifocal pneumonia, likely reactive mediastinal lymphadenopathy. Patient was admitted to the hospital service on empiric antibiotics and BiPAP use for COPD exacerbation. Hospital Course to Date: 01/14: Very anxious this am s/p 1mg IV versed with positive response. Patient remains on Bipap at 60% Fio2, 16/01, SPO2 above 95%. COVID and Flu PCR pending. Continue empiric IV Abx and IV steroids. Pulmonary and ID consult pending. Patient unable to tolerate Bipap off at this am, unable to administer PO meds. PRN hydralazine added for hypertension. 01/15: Remains stable on the Bipap, still on 60% Fio2. COVID PCR negative. This am ABG noted. Wheezing and bibasilar crakles appreciated this morning. X1 dose of IV lasix ordered, will check BNP and 2D echo. Continue current IV Abx and wean O2 supplementation as tolerated for SPO2 above 88%. Pulmonary is also following. 01/16: Patient transferred to IMCU bed, stable off of BiPAP on salter at 6 L. Patient states that he uses 6 L at home. Patient stated that his noninvasive ventilation stopped working 2 weeks ago and he has not been able to get it serviced and states that he recently was granted disability insurance. 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 01/17: CM working on home health care arrangements. Anticipate d/c in next 24-48 hrs. 01/18: Worse today. Agree with pulmonology assessment. may need additional volume removed. will order cxr. hctz d/c, ordered lasix 40 mg IV x 2 doses. Continue NIV prn and qhs. 01/19: Transitioned to bipap to salter NC 8l/min. CXR ordered demonstrates radiographic improvement of pulmonary edema. Agree with pulmonology, there is a definitely a component of anxiety. Will start buspar for anxiety. CM working on [facility] arrangement for patient. Assessment and Plan: Neuro: Generalized anxiety disorder -Reorientation as needed -Maintain sleep-wake cycle -As needed analgesia - buspar for anxiety Cardiac: Hypertensive emergency (resolved), hypertension -Presented with a blood pressure of 200/105 -As needed hydralazine and labetalol -Antihypertensive regimen: Hydrochlorothiazide, lisinopril -Blood pressure monitoring per protocol -Echocardiogram shows LVEF 55 to 60%, moderate concentric LVH Respiratory: Acute on chronic hypoxic respiratory failure, COPD exacerbation, h/o ANNETTA on CPAP -CCM consulted, appreciate recommendations -Presented with shortness of breath for 3 days, SPO2 in the 80s with 2 L of nasal cannula in the ED -S/p continuous BiPAP -Wean to salter -BiPAP as needed and nightly -Steroids -Pulmonary hygiene -SPO2 monitoring -S/p Lasix -Duoneb GI: Morbid obesity -24 hours +20 mL -PPI -Cardiac diet -Encouraged lifestyle and dietary modifications outpatient : NAD -Monitor intake and output -Renally dose medications -Avoid nephrotoxic medications -Trend BMP ID: COPD exacerbation, multifocal pneumonia -CT showed multifocal pneumonia -Antibiotic therapy with Zithromax and Rocephin -COVID-19 PCR negative -Flu PCR pending -Trend WBC and fever curve Endo: NAD -Avoid hypoglycemia Heme: Elevated D-dimer, leukocytosis -CTA chest shows no evidence of pulmonary embolism, bilateral patchy consol idation throughout the both lungs suggestive of multifocal pneumonia, mediastinal lymphadenopathy likely reactive -Bilateral lower extremity Doppler ultrasound negative for DVT -Trend CBC -Transfuse hemoglobin less than 7 -SCDs to BLE while in bed The high probability of a clinically significant, sudden or life threatening deterioration of the [multiple] system(s) required my full and direct attention, intervention and personal management. The aggregate critical care time was [60] minutes. This time is in addition to time spent performing reported procedures but includes the following: [x] Data Review and interpretation [x] Patient assessment and monitoring of vital signs [x] Documentation [x] Medication orders and management Disposition: HOME HEALTH CARE SERVICE Final Discharge Diagnosis (Prints w/discharge instructions): Acute on chronic hypoxic respiratory failure, COPD exacerbation, h/o ANNETTA on CPAP Time spent for discharge: 35 Core Measure Documentation - Palliative Care Palliative Care/ Comfort Measures: Not Applicable - Core Measures Any of the following diagnoses?: none Exam - Physical Exam Narrative exam: Physical Exam: Constitutional: Alert, cooperative. No acute distress. on bipap Head, Ears, Nose: Normocephalic, atraumatic. External ears, nose normal Eyes: Conjunctivae/corneas clear. No icterus. No ptosis. Neck: Supple, no meningeal signs Oral: dentition fair, no thrush Cardiovascular: S1, S2 normal. Respiratory: rhonchi bl. exp wheeze improved. GI: Soft, non-tender; bowel sounds normal. No peritoneal signs. Musculoskeletal: No pedal edema, no cyanosis. Skin: No rash or abscess Hem/Lymphatic: No palpable cervical or supraclavicular nodes. No lymphangitis Psych: Mood ok. Affect normal Neurological: Awake, alert, oriented. No gross abnormality - Constitutional Vitals: Temp Pulse Resp BP Pulse Ox 98.0 F 101 H 24 100/36 100 01/19/22 12:00 01/19/22 15:51 01/19/22 15:51 01/19/22 15:51 01/19/22 15:51 Plan Follow up with: PRIMARY CARE, [Primary Care Provider] - 3-5 Days Prescriptions: Insulin Glargine,Hum.rec.anlog [Lantus Solostar] 15 unit SQ QHS 30 Days #1 box busPIRone [Buspar] 10 mg PO BID 30 Days #60 tablet Prednisone [predniSONE 10 mg (6-Day Pack, 21 Tabs)] 10 mg PO .TAPER #1 lisinopriL [Zestril TAB] 20 mg PO QDAY 30 Days #30 tablet
[2022-01-19 17:31] VITALS: BP 137/77
[2022-01-19] MEDS ORDERED: busPIRone 10 MG TAB PO SCH (22:00)
== END 2022-01-19 18:20 | disposition home or self-care (01) | DRG 189 ==
LOC: ED 13:32 → 3A 23:34 → IMCU 01-14 00:33 → CC1 01-14 07:12 → IMCU 01-16 12:43
PROVIDERS: ADMIT Internal Medicine Geriatric Medicine; ATTEND Internal Medicine
PROC: 4A033R1 Measurement of Arterial Saturation, Peripheral, Percutaneous Approach (ICD-10-PCS; principal; 2022-01-13)
PROC: 5A09557 Assistance with Respiratory Ventilation, Greater than 96 Consecutive Hours, Continuous Positive Airway Pressure (ICD-10-PCS; 2022-01-13)
DX: J96.21 Acute and chronic respiratory failure with hypoxia (principal); J18.9 Pneumonia, unspecified organism; G47.33 Obstructive sleep apnea (adult) (pediatric); Z20.822 Contact with and (suspected) exposure to COVID-19; I16.1 Hypertensive emergency; E66.01 Morbid (severe) obesity due to excess calories; Z68.44 Body mass index [BMI] 60.0-69.9, adult; J44.1 Chronic obstructive pulmonary disease with (acute) exacerbation; J44.0 Chronic obstructive pulmonary disease with (acute) lower respiratory infection; I10 Essential (primary) hypertension; F41.1 Generalized anxiety disorder; Z79.899 Other long term (current) drug therapy; Z87.891 Personal history of nicotine dependence; Z79.4 Long term (current) use of insulin
CPT/HCPCS: 36415; 71045; 71275; 80048; 80053; 80307; 82728; 82803; 82962; 83615; 83735; 83880; 84100; 84145; 84484; 85025; 85027; 85379; 85610; 85730; 86140; 93005; 93306; 93970; 94640; 94644; 94660; 94760; 99285; G0378; J3490; Q9967; C8929; J0360; J0456; J0696; J1650; J1815; J1940; J1956; J2250; J2920; J3475; U0003

== ENCOUNTER 2022-01-19 20:05 | Inpatient (IN) | payer MEDICAID, MEDICARE, OTHER ==
[2022-01-19] MEDS ORDERED: IPRATROPIUM 0.02% NEBU 2.5 ML IH ONE (20:13)
[2022-01-19] MEDS ORDERED: methylPREDNISolone Sod Succinate 125 MG/2 ML INJ IV ONE (20:13)
[2022-01-19] MEDS ORDERED: ALBUTEROL 2.5 MG/3 ML NEBU IH ONE (20:13)
[2022-01-19] MEDS ORDERED: PANTOPRAZOLE 40 MG INJ IV ONE (20:14)
[2022-01-19] MEDS ORDERED: FUROSEMIDE 40 MG/4 ML INJ IV ONE (20:14)
--- NOTE | 2022-01-19 20:30 | Emergency Department Report ---
ED General Adult HPI - General Chief complaint: Dyspnea/Respdistress Stated complaint: weak, dyspnea, gi bleed Time Seen by Provider: 01/19/22 20:10 Source: patient, EMS (Verbal report received from emergency medical services. EMS documentation not available at time of chart dictation ), RN notes reviewed, old records reviewed Mode of arrival: Stretcher Limitations: Physical Limitation - History of Present Illness Initial comments: The patient was evaluated in the emergency department for symptoms described in the history of present illness. He/she was evaluated in the context of the global COVID-19 pandemic, which necessitated consideration that the patient might be at risk for infection with the virus that causes COVID-19. Institutional protocols and algorithms that pertain to the evaluation of patients at risk for COVID-19 are in a state of rapid change based on information released by regulatory bodies including the CDC and federal and state organizations. These policies and algorithms were followed during the patient's care in the emergency department. Please note that these policies, procedures and recommendations changed on a rapid basis. The patient is a 46-year-old gentleman he has a history of COPD, multifocal pneumonia, morbid obesity, and was recently admitted to the hospital for acute hypoxic respiratory failure. He had a CT scan chest which showed no pulmonary embolism, and a lower extremity DVT study which was negative for DVT. He was also ruled out for COVID. He was treated supportively and symptomatically, and discharged from the emergency department earlier on today. The patient presents to the ER today with EMS. History obtained from both patient and EMS. Patient currently in acute respiratory distress, and on a CPAP. As per EMS, they were called for shortness of breath, hypoxia, and sweating. Patient reports has been having dark red blood per rectum since this morning. EMS gave the patient steroids/Solu-Medrol in the field. The patient denies physical pain at this time. He does not take blood thinning medications that he is aware of. He thinks he has been having dark red blood since this morning. -: Gradual Consistency: constant Improves with: rest Worsens with: movement - Related Data Home Medications Medication Instructions Recorded Confirmed Last Taken Fluticasone/Umeclidin/Vilanter 20 inh INHALATION PRN 04/15/21 01/14/22 Unknown [Trelegy Ellipta 100-62.5-25(Nf)] Ipratropium [Atrovent NEB] 20 inh INHALATION PRN 04/15/21 01/14/22 01/13/22 Lisinopril/Hydrochlorothiazide 40 mg DAILY 04/15/21 01/14/22 01/13/22 Previous Rx's Medication Instructions Recorded Last Taken Type ALPRAZolam [Xanax TAB] 0.5 mg PO Q8H PRN tablet 04/23/21 Unknown Rx Famotidine [Pepcid] 20 mg PO BID tablet 04/23/21 Unknown Rx Insulin Regular, Human [HumuLIN R] 0 units SUB-Q ACHS units 04/23/21 Unknown Rx Prednisone [predniSONE 10 mg 10 mg PO .TAPER #1 tab.ds.pk 04/23/21 03/28/21 Rx (6-Day Pack, 21 Tabs)] levoFLOXacin [Levaquin] 750 mg PO QDAY #7 tablet 04/23/21 Unknown Rx Insulin Glargine,Hum.rec.anlog 15 unit SQ QHS 30 Days #1 box 01/19/22 Unknown Rx [Lantus Solostar] Prednisone [predniSONE 10 mg 10 mg PO .TAPER #1 01/19/22 Unknown Rx (6-Day Pack, 21 Tabs)] busPIRone [Buspar] 10 mg PO BID 30 Days #60 tablet 01/19/22 Unknown Rx lisinopriL [Zestril TAB] 20 mg PO QDAY 30 Days #30 tablet 01/19/22 Unknown Rx Allergies Allergy/AdvReac Type Severity Reaction Status Date / Time No Known Allergies Allergy Unverified 07/19/15 09:58 ED Review of Systems ROS: Stated complaint: SOB Other details as noted in HPI Constitutional: malaise, weakness. denies: fever Eyes: denies: eye discharge ENT: denies: epistaxis Respiratory: shortness of breath. denies: cough Cardiovascular: dyspnea on exertion, orthopnea Gastrointestinal: hematochezia. denies: hematemesis, melena Musculoskeletal: myalgia Neurological: weakness Psychiatric: anxiety ED Past Medical Hx - Past Medical History Hx Hypertension: Yes Hx Asthma: Yes Hx COPD: Yes - Social History Smoking Status: Never Smoker - Medications Home Medications: Home Medications Medication Instructions Recorded Confirmed Last Taken Type Fluticasone/Umeclidin/Vilanter 20 inh INHALATION PRN 04/15/21 01/14/22 Unknown H istory [Trelegy Ellipta 100-62.5-25(Nf)] Ipratropium [Atrovent NEB] 20 inh INHALATION PRN 04/15/21 01/14/22 01/13/22 History Lisinopril/Hydrochlorothiazide 40 mg DAILY 04/15/21 01/14/22 01/13/22 History ALPRAZolam [Xanax TAB] 0.5 mg PO Q8H PRN tablet 04/23/21 01/14/22 Unknown Rx Famotidine [Pepcid] 20 mg PO BID tablet 04/23/21 01/14/22 Unknown Rx Insulin Regular, Human [HumuLIN R] 0 units SUB-Q ACHS units 04/23/21 01/14/22 Unknown Rx Prednisone [predniSONE 10 mg 10 mg PO .TAPER #1 tab.ds.pk 04/23/21 01/14/22 03/28/21 Rx (6-Day Pack, 21 Tabs)] levoFLOXacin [Levaquin] 750 mg PO QDAY #7 tablet 04/23/21 01/14/22 Unknown Rx Insulin Glargine,Hum.rec.anlog 15 unit SQ QHS 30 Days #1 box 01/19/22 Unknown Rx [Lantus Solostar] Prednisone [predniSONE 10 mg 10 mg PO .TAPER #1 01/19/22 Unknown Rx (6-Day Pack, 21 Tabs)] busPIRone [Buspar] 10 mg PO BID 30 Days #60 tablet 01/19/22 Unknown Rx lisinopriL [Zestril TAB] 20 mg PO QDAY 30 Days #30 tablet 01/19/22 Unknown Rx ED Physical Exam - General Limitations: Physical Limitation General appearance: alert, anxious, in distress, obese - Head Head exam: Present: atraumatic, normocephalic - Eye Eye exam: Present: normal appearance, EOMI. Absent: nystagmus - ENT ENT exam: Present: normal exam, normal orophraynx, mucous membranes moist, normal external ear exam - Neck Neck exam: Present: normal inspection, full ROM. Absent: tenderness, meningismus - Respiratory Respiratory exam: Present: respiratory distress, rhonchi, accessory muscle use. Absent: stridor - Cardiovascular Cardiovascular Exam: Present: regular rate, normal rhythm, normal heart sounds. Absent: bradycardia, tachycardia, irregular rhythm, systolic murmur, diastolic murmur, rubs, gallop - GI/Abdominal GI/Abdominal exam: Present: soft. Absent: distended, tenderness, guarding, rebound, rigid, pulsatile mass - Rectal Rectal exam: Present: normal inspection, heme (+) stool, black stool, bloody stool, other (chaperoned by YOLY Silverman) - Extremities Exam Extremities exam: Present: normal inspection, full ROM, pedal edema, other (2+ pulses noted in the bilateral upper and lower extremities. There is no palpable cord. negative Homans sign. Muscular compartments are soft. The pelvis is stable.). Absent: calf tenderness - Back Exam Back exam: Present: normal inspection. Absent: tenderness, CVA tenderness (R), CVA tenderness (L), paraspinal tenderness, vertebral tenderness - Neurological Exam Neurological exam: Present: alert, oriented X3, other (No facial droop. Tongue midline. Extraocular movements intact bilaterally. Facial sensation intact to light touch in V1, V2, V3 distribution bilaterally. 5 and a 5 strength in 4 extremities. Sensation intact to light touch in 4 extremities.). Absent: motor sensory deficit - Psychiatric Psychiatric exam: Present: anxious - Skin Skin exam: Present: warm, dry, intact, normal color. Absent: rash ED Course Vital Signs 01/19/22 01/19/22 01/19/22 20:05 20:46 20:54 Temperature 97.5 F L Pulse Rate 92 H 108 H 103 H Pulse Rate [ Bilateral] Respiratory 18 23 20 Rate Respiratory Rate [Bilateral ] Blood Pressure 104/50 128/74 Blood Pressure 128/74 [Right] O2 Sat by Pulse 93 100 95 Oximetry 01/19/22 01/19/22 20:55 21:11 Temperature Pulse Rate 97 H Pulse Rate [ 101 H Bilateral] Respiratory 20 Rate Respiratory 30 H Rate [Bilateral ] Blood Pressure Blood Pressure 124/47 [Right] O2 Sat by Pulse 100 Oximetry - Reevaluation(s) Reevaluation #1: 01/19/22 21:02 Differential diagnosis, include but not limited to: COPD exacerbation, CHF, pneumonia, pulmonary hypertension, obstructive sleep apnea, obesity hypoventilation syndrome, GI bleed Assessment and plan: 46-year-old gentleman, with acute on chronic hypoxic respiratory failure. He was recently ruled out for DVT and pulmonary embolism at this hospital. His presentation today is also complicated by dark red blood per rectum Patient has acute respiratory failure, and requires BiPAP at this time. Head of bed elevation, n.p.o., aspiration precautions, albuterol, Atrovent, steroids already given by EMS, trial dose of Lasix, and magnesium The patient has dark red blood per rectum but is hemodynamically stable. He is agreeable to packed red blood cell transfusion, if necessary. Repeat chest x- ray, laboratory studies, obtain bilateral lower extremity DVT study. Given acute respiratory failure, inability to lay completely flat, evidence of obvious GI bleed, we cannot obtain CT angiogram chest at this time, because the patient is not able to lay flat for this test. In addition, given concern for GI bleed, would not anticoagulate patient at this time. He does not have lower extremity asymmetry. He is agreeable to admission and hospitalization. I have placed page to GI on-call, awaiting callback. 01/19/22 21:30 Hemoglobin, hematocrit 10/30, decreased from 12/40 from a few days ago. Leukocytosis appreciated. Uncertain if stress reaction secondary to steroids, or both. Given morbid obesity, obstructive sleep apnea, probable congestive heart failure with preserved ejection fraction, concern for volume overload, hold 30 cc/kg bolus of IV fluids. Contacted GI on-call, Dr. Hayden Horne Discussed the patient's history, physical, laboratory studies and imaging studies and clinical impression. Recommends n.p.o. after midnight or now, proton pump inhibitor twice daily, and advises that her group can follow in consultation. Hospital physician is paged to arrange admission 01/19/22 21:38 Dr Young to admit to [facility] ED Medical Decision Making - Lab Data Result diagrams: 01/19/22 21:03 01/19/22 21:03 Vital Signs 01/19/22 01/19/22 01/19/22 20:05 20:46 20:54 Temperature 97.5 F L Pulse Rate 92 H 108 H 103 H Pulse Rate [ Bilateral] Respiratory 18 23 20 Rate Respiratory Rate [Bilateral ] Blood Pressure 104/50 128/74 Blood Pressure 128/74 [Right] O2 Sat by Pulse 93 100 95 Oximetry 01/19/22 20:55 Temperature Pulse Rate Pulse Rate [ 101 H Bilateral] Respiratory Rate Respiratory 30 H Rate [Bilateral ] Blood Pressure Blood Pressure [Right] O2 Sat by Pulse Oximetry Lab Results 01/19/22 01/19/22 01/19/22 Range/Units 20:13 21:03 21:03 WBC (4.5-11.0) K/mm3 RBC (3.65-5.03) M/mm3 Hgb (11.8-15.2) gm/dl Hct (35.5-45.6) % MCV (84-94) fl MCH (28-32) pg MCHC (32-34) % RDW (13.2-15.2) % Plt Count (140-440) K/mm3 Lymph % (Auto) (13.4-35.0) % [place] % (Auto) (0.0-7.3) % Eos % (Auto) (0.0-4.3) % Baso % (Auto) (0.0-1.8) % Lymph # (Auto) (1.2-5.4) K/mm3 [place] # (Auto) (0.0-0.8) K/mm3 Eos # (Auto) (0.0-0.4) K/mm3 Baso # (Auto) (0.0-0.1) K/mm3 Seg Neutrophils % (40.0-70.0) % Seg Neutrophils # (1.8-7.7) K/mm3 PT 14.3 (12.2-14.9) Sec. INR 1.00 (0.87-1.13) APTT 22.3 L (24.2-36.6) Sec. Sodium 139 (137-145) mmol/L Potassium 5.0 (3.6-5.0) mmol/L Chloride 95.3 L (98-107) mmol/L Carbon Dioxide 33 H (22-30) mmol/L Anion Gap 16 mmol/L BUN 55 H (9-20) mg/dL Creatinine 1.0 (0.8-1.3) mg/dL Estimated GFR > 60 ml/min BUN/Creatinine Ratio 55 % Glucose 245 H (75-100) mg/dL Lactic Acid 2.20 H* (0.7-2.0) mmol/L Calcium 8.7 (8.4-10.2) mg/dL Magnesium 2.30 (1.7-2.3) mg/dL Total Bilirubin 0.20 (0.1-1.2) mg/dL AST 13 (5-40) units/L ALT 32 (7-56) units/L Alkaline Phosphatase 81 (35-129) units/L Troponin T (0.00-0.029) ng/mL Total Protein 5.5 L D (6.3-8.2) g/dL Albumin 3.6 L (3.9-5) g/dL Albumin/Globulin Ratio 1.9 % Blood Type 01/19/22 01/19/22 01/19/22 Range/Units 21:03 21:03 21:03 WBC 18.4 H (4.5-11.0) K/mm3 RBC 4.65 (3.65-5.03) M/mm3 Hgb 10.0 L (11.8-15.2) gm/dl Hct 32.0 L (35.5-45.6) % MCV 69 L (84-94) fl MCH 21 L (28-32) pg MCHC 31 L (32-34) % RDW 18.0 H (13.2-15.2) % Plt Count 484 H (140-440) K/mm3 Lymph % (Auto) 9.7 L (13.4-35.0) % [place] % (Auto) 7.5 H (0.0-7.3) % Eos % (Auto) 0.2 (0.0-4.3) % Baso % (Auto) 0.8 (0.0-1.8) % Lymph # (Auto) 1.8 (1.2-5.4) K/mm3 [place] # (Auto) 1.4 H (0.0-0.8) K/mm3 Eos # (Auto) 0.0 (0.0-0.4) K/mm3 Baso # (Auto) 0.1 (0.0-0.1) K/mm3 Seg Neutrophils % 81.8 H (40.0-70.0) % Seg Neutrophils # 15.0 H (1.8-7.7) K/mm3 PT (12.2-14.9) Sec. INR (0.87-1.13) APTT (24.2-36.6) Sec. Sodium (137-145) mmol/L Potassium (3.6-5.0) mmol/L Chloride (98-107) mmol/L Carbon Dioxide (22-30) mmol/L Anion Gap mmol/L BUN (9-20) mg/dL Creatinine (0.8-1.3) mg/dL Estimated GFR ml/min BUN/Creatinine Ratio % Glucose (75-100) mg/dL Lactic Acid (0.7-2.0) mmol/L Calcium (8.4-10.2) mg/dL Magnesium (1.7-2.3) mg/dL Total Bilirubin (0.1-1.2) mg/dL AST (5-40) units/L ALT (7-56) units/L Alkaline Phosphatase (35-129) units/L Troponin T < 0.010 (0.00-0.029) ng/mL Total Protein (6.3-8.2) g/dL Albumin (3.9-5) g/dL Albumin/Globulin Ratio % Blood Type O POSITIVE - EKG Data -: EKG Interpreted by Sd Rate: tachycardia - EKG Data 01/19/22 21:02 The EKG is interpreted at 20: 33 Sinus rhythm, tachycardia, rate 108 bpm. Normal axis, normal P wave axis, QTC 4 5 9 ms. There is poor R wave progression. This is an abnormal EKG. This is not a STEMI - Radiology Data Radiology results: pending, report reviewed, image reviewed CHEST 1 VIEW 01/18/2022 2:50 PM INDICATION / CLINICAL INFORMATION: pulmonary edema. COMPARISON: 01/16/2022 FINDINGS: SUPPORT DEVICES: None. HEART / MEDIASTINUM: Stable borderline heart size LUNGS / PLEURA: Bilateral infiltrates or pulmonary edema has essentially resolved. There is mild central pulmonary venous congestion remaining. No pleural effusion or pneumothorax. ADDITIONAL FINDINGS: No significant additional findings. IMPRESSION: 1. Significant improvement as described Signer Name: Mike Adames Jr, MD Signed: 01/18/2022 2:52 PM Workstation Name: [id number] CTA CHEST WITH CONTRAST INDICATION / CLINICAL INFORMATION: rule out PE. TECHNIQUE: Axial CT images were obtained through the chest after injection of IV contrast. 3 plane MIP and/or 3D reconstructions were produced. All CT scans at this location are performed using CT dose reduction for ALARA by means of automated exposure control. COMPARISON: No prior cross-sectional imaging of the chest FINDINGS: PULMONARY EMBOLUS: Evaluation for pulmonary embolus is limited secondary to photon starvation and respiratory motion. Evaluation of the segmental and subsegmental pulmonary arteries is limited. No central pulmonary embolus. THORACIC AORTA: No significant abnormality. HEART: Upper limits normal in size. CORONARY ARTERY CALCIFICATION: Absent -- None. MEDIASTINUM / [place]: Multiple enlarged mediastinal lymph nodes, for example right paratracheal lymph node measures 1.6 cm in short axis on image 51 series 2. PLEURA: No pleural effusion. No pneumothorax. LUNGS: Patchy areas of consolidation throughout both lungs, most pronounced in the lower lobes. ADDITIONAL FINDINGS: None. UPPER ABDOMEN: Post surgical changes of the stomach. SKELETAL STRUCTURES: No significant osseous abnormality. IMPRESSION: 1. No CT evidence for pulmonary embolism within the limitations detailed above. 2. Bilateral patchy consolidation throughout both lungs, suggestive of multifocal pneumonia. Mediastinal lymphadenopathy is likely reactive. Signer Name: Henry Wang MD Signed: 01/13/2022 8:23 PM Workstation Name: [id number] DUPLEX DOPPLER LOWER EXTREMITY VEINS, BILATERAL INDICATION / CLINICAL INFORMATION: R/o DVT. TECHNIQUE: Duplex doppler imaging was performed through the veins of both lower extremities using venous compression and other maneuvers. COMPARISON: None available. FINDINGS: RIGHT COMMON FEMORAL VEIN: Negative. RIGHT FEMORAL VEIN: Negative. RIGHT POPLITEAL VEIN: Negative. RIGHT CALF VEINS: Negative. LEFT COMMON FEMORAL VEIN: Negative. LEFT FEMORAL VEIN: Negative. LEFT POPLITEAL VEIN: Negative. LEFT CALF VEINS: Negative. ADDITIONAL FINDINGS: None. IMPRESSION: 1. No sonographic evidence for DVT in either lower extremity. Signer Name: Vel Ellington MD Signed: 01/16/2022 3:13 PM Workstation Name: [id number] Critical Care Time: Yes Critical care time in (mins) excluding proc time.: 35 Critical care attestation.: If time is entered above; I have spent that time in minutes in the direct care of this critically ill patient, excluding procedure time. ED Disposition Clinical Impression: Acute and chronic respiratory failure, COPD exacerbation, Morbid obesity due to excess calories, GI bleed Disposition: 09 ADMITTED INPATIENT Is pt being admited?: Yes Does the pt Need Aspirin: No Condition: Serious Instructions: Chronic Obstructive Pulmonary Disease (ED)
--- NOTE | 2022-01-19 21:02 | XRay Report ---
Chest single view INDICATION: Dyspnea IMPRESSION: Improving patchy airspace disease within the lower lungs when compared yesterday's exam. Signer Name: Dougie Casey MD Signed: 01/19/2022 8:58 PM Workstation Name: [employer]
[2022-01-19 21:08] LABS: Basophils # (Auto) 0.1 K/mm3 (0.0-0.1); Basophils % (Auto) 0.8 % (0.0-1.8); Eosinophils % (Auto) 0.2 % (0.0-4.3); Lymphocytes # (Auto) 1.8 K/mm3 (1.2-5.4); Lymphocytes % (Auto) 9.7 % (13.4-35.0); Mean Corpuscular HGB Conc 31 % (32-34); Monocytes # (Auto) 1.4 K/mm3 (0.0-0.8); Monocytes % (Auto) 7.5 % (0.0-7.3); Platelet Count 484 K/mm3 (140-440); Red Blood Count 4.65 M/mm3 (3.65-5.03)
[2022-01-19 21:10] LABS: Mean Corpuscular Volume 69 fl (84-94)
[2022-01-19 21:17] LABS: Partial Thromboplastin Time 22.3 Sec. (24.2-36.6)
[2022-01-19] MEDS ORDERED: AZITHROMYCIN/NS 500 MG/250 ML 500 MG/250 ML BAG IV ONE (21:29)
[2022-01-19] MEDS ORDERED: cefTRIAXone/NS 1 GM/50 ML 1 GM/50 ML BAG IV ONE (21:29)
[2022-01-19 21:30] LABS: Alanine Aminotransferase 32 units/L (7-56); Albumin 3.6 g/dL (3.9-5); BUN/Creatinine Ratio 55; Blood Urea Nitrogen 55 mg/dL (9-20); Calcium 8.7 mg/dL (8.4-10.2); Hemolysis Index 8
[2022-01-19] MEDS ORDERED: MORPHINE 2 MG/1 ML INJ IV PRN ×2 (21:38→21:54)
[2022-01-19] MEDS ORDERED: MAGNESIUM SULFATE 2 GM/50 ML BAG IV ONE (21:38)
[2022-01-19] MEDS ORDERED: ACETAMINOPHEN 325 MG TAB PO PRN ×2 (21:38→21:54)
[2022-01-19] MEDS ORDERED: HYDROmorphone 0.5 MG/0.5 ML INJ IV PRN (21:38)
[2022-01-19] MEDS ORDERED: NALOXONE 0.4 MG/1 ML INJ IV PRN (21:38)
[2022-01-19] MEDS ORDERED: METOCLOPRAMIDE 10 MG/2 ML INJ IV PRN (21:38)
[2022-01-19] MEDS ORDERED: MORPHINE 4 MG/1 ML INJ IV PRN (21:54)
[2022-01-19] MEDS ORDERED: ONDANSETRON 4 MG/2 ML INJ IV PRN (21:54)
[2022-01-19] MEDS ORDERED: ALBUTEROL 2.5 MG/3 ML NEBU IH PRN (21:54)
[2022-01-19] MEDS ORDERED: ALPRAZolam 0.5 MG TAB PO PRN (21:56)
[2022-01-19] MEDS ORDERED: NON-FORMULARY EACH (Fluticasone/Umeclidin/Vilanter 1 EACH Blst.W.Dev) INHALATION SCH (22:00)
--- NOTE | 2022-01-19 22:04 | History and Physical Report ---
History of Present Illness Date of examination: 01/19/22 Date of admission: 01/19/22 Chief complaint: Dyspnea Respiratory distress GI bleed History of present illness: 46 years old male with past medical history of tobacco abuse , COPD, multifocal pneumonia, morbid obesity was brought to the emergency room because of dyspnea and respiratory distress .patient was recently admitted to the hospital for acute hypoxic respiratory failure. He had a CT scan chest which showed no pulmonary embolism, and a lower extremity DVT study which was negative for DVT. He was also ruled out for COVID. He was treated supportively and symptomatically, and discharged from the emergency department earlier on today. The patient presents to the ER today with EMS. History obtained from both patient and EMS. Patient currently in acute respiratory distress, and on a CPAP. As per EMS, they were called for shortness of breath, hypoxia, and sweating. Patient reports has been having dark red blood per rectum since this morning. EMS gave the patient steroids/Solu-Medrol in the field. The patient denies physical pain at this time. He does not take blood thinning medications that he is aware of. He thinks he has been having dark red blood since this morning. In the emergency room patient is found to have WBC of 18.4, hemoglobin 10.0 and hematocrit 32.0, MCV 69 platelet 484, lactic acid 2.20, chest x-ray shows improving patchy airspace disease within the lower lungs when compared to yesterday's exam. Subsequently Case was discussed with on-call GI doctor will see the patient in consultation in the morning Past History Past Medical History: COPD, hypertension, other (Asthma, morbid obesity, multifocal pneumonia) Past Surgical History: No surgical history Social history: smoking Family history: hypertension Medications and Allergies Allergies Allergy/AdvReac Type Severity Reaction Status Date / Time No Known Allergies Allergy Unverified 07/19/15 09:58 Home Medications Medication Instructions Recorded Confirmed Last Taken Type Fluticasone/Umeclidin/Vilanter 20 inh INHALATION PRN 04/15/21 01/14/22 Unknown History [Trejony Ellipta 100-62.5-25(Nf)] Ipratropium [Atrovent NEB] 20 inh INHALATION PRN 04/15/21 01/14/22 01/13/22 History Lisinopril/Hydrochlorothiazide 40 mg DAILY 04/15/21 01/14/22 01/13/22 History ALPRAZolam [Xanax TAB] 0.5 mg PO Q8H PRN tablet 04/23/21 01/14/22 Unknown Rx Famotidine [Pepcid] 20 mg PO BID tablet 04/23/21 01/14/22 Unknown Rx Insulin Regular, Human [HumuLIN R] 0 units SUB-Q ACHS units 04/23/21 01/14/22 Unknown Rx Prednisone [predniSONE 10 mg 10 mg PO .TAPER #1 tab.ds.pk 04/23/21 01/14/22 03/28/21 Rx (6-Day Pack, 21 Tabs)] levoFLOXacin [Levaquin] 750 mg PO QDAY #7 tablet 04/23/21 01/14/22 Unknown Rx Insulin Glargine,Hum.rec.anlog 15 unit SQ QHS 30 Days #1 box 01/19/22 Unknown Rx [Lantus Solostar] Prednisone [predniSONE 10 mg 10 mg PO .TAPER #1 01/19/22 Unknown Rx (6-Day Pack, 21 Tabs)] busPIRone [Buspar] 10 mg PO BID 30 Days #60 tablet 01/19/22 Unknown Rx lisinopriL [Zestril TAB] 20 mg PO QDAY 30 Days #30 tablet 01/19/22 Unknown Rx Active Meds: Active Medications Acetaminophen (Acetaminophen 325 Mg Tab) 650 mg PO Q6H PRN PRN Reason: Pain MILD(1-3)/Fever >100.5/CHANG Acetaminophen (Acetaminophen 325 Mg Tab) 650 mg PO Q4H PRN PRN Reason: Pain MILD(1-3)/Fever >100.5/CHANG Albuterol (Albuterol 2.5 Mg/3 Ml Nebu) 2.5 mg IH Q3HRT PRN PRN Reason: Shortness Of Breath Albuterol/Ipratropium (Ipratropium/Albuterol Sulfate 3 Ml Ampul.Neb) 1 ampul IH Q6HRT ZAKI Alprazolam (Alprazolam 0.5 Mg Tab) 0.5 mg PO Q8H PRN PRN Reason: Anxiety Azithromycin (Azithromycin 250 Mg Tab) 250 mg PO QDAY ZAKI; Protocol Azithromycin (Zithromax/Ns) 500 mg in 250 mls @ 250 mls/hr IV ONCE ONE; Protocol Stop: 01/19/22 22:28 Magnesium Sulfate (Magnesium Sulfate 2gm/50ml) 2 gm in 50 mls @ 100 mls/hr IV ONCE ONE Stop: 01/19/22 22:07 Last Admin: 01/19/22 21:42 Dose: 100 mls/hr Ceftriaxone Sodium (Rocephin/Ns 2 Gm/100 Ml) 2 gm in 100 mls @ 200 mls/hr IV Q24H ZAKI; Protocol Lisinopril (Lisinopril 20 Mg Tab) 20 mg PO QDAY ZAKI Metoclopramide HCl (Metoclopramide 10 Mg/2 Ml Inj) 10 mg IV Q6H PRN PRN Reason: Nausea And Vomiting Miscellaneous Medication (Fluticasone/Umeclidin/Vilanter) 20 inh INHALATION PRN ZAKI Morphine Sulfate (Morphine 2 Mg/1 Ml Inj) 2 mg IV Q4H PRN PRN Reason: Pain, Moderate (4-6) Morphine Sulfate (Morphine 4 Mg/1 Ml Inj) 4 mg IV Q4H PRN PRN Reason: Pain , Severe (7-10) Naloxone HCl (Naloxone 0.4 Mg/1 Ml Inj) 0.1 mg IV Q2MIN PRN PRN Reason: Res Rate </= 8 or 02 SAT < 92% Ondansetron HCl (Ondansetron 4 Mg/2 Ml Inj) 4 mg IV Q8H PRN PRN Reason: Nausea And Vomiting Sodium Chloride (Sodium Chloride 0.9% 10 Ml Flush Syringe) 10 ml IV BID ZAKI Sodium Chloride (Sodium Chloride 0.9% 10 Ml Flush Syringe) 10 ml IV PRN PRN PRN Reason: LINE FLUSH Sodium Chloride (Sodium Chloride 0.9% 10 Ml Flush Syringe) 10 ml IV BID ZAKI Sodium Chloride (Sodium Chloride 0.9% 10 Ml Flush Syringe) 10 ml IV PRN PRN PRN Reason: LINE FLUSH Review of Systems All systems: negative Cardiovascular: shortness of breath, dyspnea on exertion Respiratory: shortness of breath, dyspnea on exertion Gastrointestinal: melena, other (Dark-colored stool) Exam - Constitutional Vitals: Temp Pulse Resp BP Pulse Ox 97.5 F L 97 H 20 124/47 100 01/19/22 20:54 01/19/22 21:11 01/19/22 21:11 01/19/22 21:11 01/19/22 21:11 General appearance: Present: no acute distress, well-nourished - EENT Eyes: Present: PERRL ENT: hearing intact, clear oral mucosa - Neck Neck: Present: supple, normal ROM - Respiratory Respiratory effort: normal Respiratory: bilateral: diminished - Cardiovascular Heart Sounds: Present: S1 & S2. Absent: rub, click - Extremities Extremities: pulses symmetrical, No edema Peripheral Pulses: within normal limits - Abdominal General gastrointestinal: Present: soft, non-tender, non-distended, normal bowel sounds Male genitourinary: Present: normal - Integumentary Integumentary: Present: clear, warm, dry - Musculoskeletal Musculoskeletal: gait normal, strength equal bilaterally - Psychiatric Psychiatric: appropriate mood/affect, intact judgment & insight - Neurologic Neurologic: CNII-XII intact, moves all extremities HEART Score - HEART Score Troponin: Troponin T < 0.010 ng/mL (0.00-0.029) 01/19/22 21:03 Results - Labs CBC & Chem 7: 01/19/22 21:03 01/19/22 21:03 Labs: Laboratory Last Values WBC 18.4 K/mm3 (4.5-11.0) H 01/19/22 21:03 RBC 4.65 M/mm3 (3.65-5.03) 01/19/22 21:03 Hgb 10.0 gm/dl (11.8-15.2) L 01/19/22 21:03 Hct 32.0 % (35.5-45.6) L 01/19/22 21:03 MCV 69 fl (84-94) L 01/19/22 21:03 MCH 21 pg (28-32) L 01/19/22 21:03 MCHC 31 % (32-34) L 01/19/22 21:03 RDW 18.0 % (13.2-15.2) H 01/19/22 21:03 Plt Count 484 K/mm3 (140-440) H 01/19/22 21:03 Lymph % (Auto) 9.7 % (13.4-35.0) L 01/19/22 21:03 Moffat % (Auto) 7.5 % (0.0-7.3) H 01/19/22 21:03 Eos % (Auto) 0.2 % (0.0-4.3) 08/25/22 21:03 Baso % (Auto) 0.8 % (0.0-1.8) 01/19/22 21:03 Lymph # (Auto) 1.8 K/mm3 (1.2-5.4) 01/19/22 21:03 Moffat # (Auto) 1.4 K/mm3 (0.0-0.8) H 01/19/22 21:03 Eos # (Auto) 0.0 K/mm3 (0.0-0.4) 01/19/22 21:03 Baso # (Auto) 0.1 K/mm3 (0.0-0.1) 01/19/22 21:03 Seg Neutrophils % 81.8 % (40.0-70.0) H 01/19/22 21:03 Seg Neutrophils # 15.0 K/mm3 (1.8-7.7) H 01/19/22 21:03 PT 14.3 Sec. (12.2-14.9) 01/19/22 20:13 INR 1.00 (0.87-1.13) 01/19/22 20:13 APTT 22.3 Sec. (24.2-36.6) L 01/19/22 20:13 Sodium 139 mmol/L (137-145) 01/19/22 21:03 Potassium 5.0 mmol/L (3.6-5.0) 01/19/22 21:03 Chloride 95.3 mmol/L (98-107) L 01/19/22 21:03 Carbon Dioxide 33 mmol/L (22-30) H 01/19/22 21:03 Anion Gap 16 mmol/L 01/19/22 21:03 BUN 55 mg/dL (9-20) H 01/19/22 21:03 Creatinine 1.0 mg/dL (0.8-1.3) 01/19/22 21:03 Estimated GFR > 60 ml/min 01/19/22 21:03 BUN/Creatinine Ratio 55 % 01/19/22 21:03 Glucose 245 mg/dL (75-100) H 01/19/22 21:03 Lactic Acid 2.20 mmol/L (0.7-2.0) H* 01/19/22 21:03 Calcium 8.7 mg/dL (8.4-10.2) 01/19/22 21:03 Magnesium 2.30 mg/dL (1.7-2.3) 01/19/22 21:03 Total Bilirubin 0.20 mg/dL (0.1-1.2) 01/19/22 21:03 AST 13 units/L (5-40) 01/19/22 21:03 ALT 32 units/L (7-56) 01/19/22 21:03 Alkaline Phosphatase 81 units/L (35-129) 01/19/22 21:03 Troponin T < 0.010 ng/mL (0.00-0.029) 01/19/22 21:03 Total Protein 5.5 g/dL (6.3-8.2) L D 01/19/22 21:03 Albumin 3.6 g/dL (3.9-5) L 01/19/22 21:03 Albumin/Globulin Ratio 1.9 % 01/19/22 21:03 Blood Type O POSITIVE 01/19/22 21:03 Microbiology: Microbiology 01/19/22 Unknown Stool - Stool Aspirate Stool Occult Blood (MELVIN) - Final - Imaging and Cardiology Chest x-ray: report reviewed Assessment and Plan VTE prophylaxis?: Mechanical Plan of care discussed with patient/family: Yes - Patient Problems (1) Acute and chronic respiratory failure Status: Acute Plan to address problem: Admit the patient to the IMCU. Put the patient on BiPAP. DuoNeb by nebulizer every 4 hours. Albuterol via nebulizer every 4 hours as needed. We continue the home medication. Consult pulmonary if needed (2) COPD exacerbation Status: Acute Plan to address problem: Put the patient on BiPAP. DuoNeb by nebulizer every 4 hours. Albuterol via nebulizer every 4 hours as needed. We continue the home medication. Consult pulmonary if needed (3) GI bleed Status: Acute Plan to address problem: Avoid blood thinner. Patient is on Protonix drip 8 mg/h. Serial H&H. Reconsult GI for evaluation. Recheck CBC BMP in the morning (4) Multifocal pneumonia Status: Acute Plan to address problem: Put the patient on BiPAP. DuoNeb by nebulizer every 4 hours. Albuterol via nebulizer every 4 hours as needed. Rocephin 2 g IV daily. Zithromax to 50 mg p.o. daily. Blood cultures sputum culture. Recheck CBC in the morning. Consult pulmonary if needed (5) Morbid obesity due to excess calories Status: Acute Plan to address problem: We counseled the patient for weight reduction. Outpatient follow-up with bariatric surgery (6) DVT prophylaxis Status: Acute Plan to address problem: SCD for DVT prophylaxis. Protonix drip 8 mg/h for GI prophylaxis. Patient is a full code
--- NOTE | 2022-01-19 23:53 | Vascular Lab Report ---
DUPLEX DOPPLER LOWER EXTREMITY VEINS, BILATERAL INDICATION / CLINICAL INFORMATION: Acute shortness of breath, lower extremities. TECHNIQUE: Duplex doppler imaging was performed through the veins of both lower extremities using shauna ous compression and other maneuvers. COMPARISON: None available. FINDINGS: RIGHT COMMON FEMORAL VEIN: Negative. RIGHT FEMORAL VEIN: Negative. RIGHT POPLITEAL VEIN: Negative. RIGHT CALF VEINS: Negative. LEFT COMMON FEMORAL VEIN: Negative. LEFT FEMORAL VEIN: Negative. LEFT POPLITEAL VEIN: Negative. LEFT CALF VEINS: Negative. ADDITIONAL FINDINGS: None. IMPRESSION: 1. No sonographic evidence for DVT in either lower extremity. Signer Name: Giorgi Ricketts II, MD Signed: 01/19/2022 11:49 PM Workstation Name: [id number]
[2022-01-20] MEDS: PANTOPRAZOLE 80 MG in SODIUM CHLORIDE 0.9% 100 ML IV SCH ×2 (02:07→10:16)
[2022-01-20] MEDS: IPRATROPIUM/ALBUTEROL SULFATE 3 ML AMPUL.NEB IH SCH ×4 (02:49→20:38)
[2022-01-20 04:44] LABS: Basophils # (Auto) 0.1 K/mm3 (0.0-0.1); Basophils % (Auto) 0.5 % (0.0-1.8); Eosinophils % (Auto) 0.1 % (0.0-4.3); Lymphocytes # (Auto) 1.9 K/mm3 (1.2-5.4); Lymphocytes % (Auto) 10.5 % (13.4-35.0); Mean Corpuscular HGB Conc 30 % (32-34); Monocytes # (Auto) 0.6 K/mm3 (0.0-0.8); Monocytes % (Auto) 3.4 % (0.0-7.3); Platelet Count 436 K/mm3 (140-440); Red Blood Count 4.66 M/mm3 (3.65-5.03); Red Cell Distribution Width 17.5 % (13.2-15.2)
[2022-01-20 04:45] LABS: Hematocrit 32.2 % (35.5-45.6); Hemoglobin 9.7 gm/dl (11.8-15.2); Mean Corpuscular Volume 69 fl (84-94)
[2022-01-20 04:54] LABS: BUN/Creatinine Ratio 60; Blood Urea Nitrogen 48 mg/dL (9-20); Calcium 8.6 mg/dL (8.4-10.2); Hemolysis Index 3
[2022-01-20] MEDS ORDERED: DEXTROSE 50% IN WATER (25GM) 50 ML SYRINGE IV PRN (08:40)
[2022-01-20] MEDS: LISINOPRIL 20 MG TAB PO SCH (09:49)
[2022-01-20] MEDS ORDERED: AZITHROMYCIN 250 MG TAB PO SCH (10:00)
[2022-01-20] MEDS ORDERED: cefTRIAXone/NS 2 GM/100 ML 2 GM/100 ML BAG IV SCH (10:00)
--- NOTE | 2022-01-20 10:39 | Electrocardiograph Report ---
[facility] Test Date: 2022-01-19 Test Time: 20:33:04 Pat Name: RENEE VAZQUEZ Department: Room: A264 1 Gender: M [employer]: GORDON : 1975 Requested By: CROW ODOM Order Number: [id number] Reading MD: Kenneth Loja Measurements Intervals [place] Rate: 108 P: 40 OR: 140 QRS: 16 QRSD: 82 T: 61 QT: 342 QTc: 459 Interpretive Statements Sinus tachycardia nonspecific st-t Compared to ECG 01/13/2022 14:01:08 Sinus rhythm no longer present Electronically Signed On 01-20-2022 10:39:17 EDT by Kenneth Loja
--- NOTE | 2022-01-20 12:51 | Gastroenterology Consultation ---
History of Present Illness - Reason for Consult Consult date: 01/20/22 GI bleed Requesting physician: CROW ODOM - History of Present Illness 46 years old male with past medical history of tobacco abuse , COPD, multifocal pneumonia, morbid obesity was brought to the emergency room because of dyspnea and respiratory distress, GI consulted for hematochezia of note recent hypoxic respiratory failure. As per EMS, they were called for shortness of breath, hypoxia, and sweating. Patient reports has been having dark red blood per rectum since this morning. EMS gave the patient steroids/Solu-Medrol in the field. He thinks he has been having dark red blood since this morning. Reports he does look at his stool usually Spoke with nurse reports no bleeding on her shift Denies abdominal pain does report mild shortness of breath still, on nasal cannula oxygen Denies history of colonoscopy in the past Hemoglobin near baseline Past History Past Medical History: COPD, hypertension, other (Asthma, morbid obesity, mult ifocal pneumonia) Past Surgical History: No surgical history Social history: smoking Family history: hypertension Medications and Allergies Allergies Allergy/AdvReac Type Severity Reaction Status Date / Time No Known Allergies Allergy Verified 01/20/22 01:44 Home Medications Medication Instructions Recorded Confirmed Last Taken Type Ipratropium [Atrovent NEB] 20 inh INHALATION PRN 04/15/21 01/20/22 01/13/22 History Lisinopril/Hydrochlorothiazide 40 mg DAILY 04/15/21 01/20/22 01/13/22 History Insulin Glargine,Hum.rec.anlog 15 unit SQ QHS 30 Days #1 box 01/19/22 01/20/22 Unknown Rx [Lantus Solostar] Prednisone [predniSONE 10 mg 10 mg PO .TAPER #1 01/19/22 01/20/22 Unknown Rx (6-Day Pack, 21 Tabs)] busPIRone [Buspar] 10 mg PO BID 30 Days #60 tablet 01/19/22 01/20/22 Unknown Rx Active Meds: Active Medications Acetaminophen (Acetaminophen 325 Mg Tab) 650 mg PO Q4H PRN PRN Reason: Pain MILD(1-3)/Fever >100.5/CHANG Albuterol (Albuterol 2.5 Mg/3 Ml Nebu) 2.5 mg IH Q3HRT PRN PRN Reason: Shortness Of Breath Albuterol/Ipratropium (Ipratropium/Albuterol Sulfate 3 Ml Ampul.Neb) 1 ampul IH Q6HRT [facility] Last Admin: 01/20/22 08:51 Dose: 1 ampul Alprazolam (Alprazolam 0.5 Mg Tab) 0.5 mg PO Q8H PRN PRN Reason: Anxiety Dextrose (Dextrose 50% In Water (25gm) 50 Ml Syringe) 50 ml IV Q30MIN PRN; Protocol PRN Reason: Hypoglycemia Pantoprazole Sodium 80 mg/ (Sodium Chloride) 100 mls @ 10 mls/hr IV DIRECT [facility] Last Admin: 01/20/22 10:16 Dose: 8 mg/hr, 10 mls/hr Insulin Human Regular (Insulin Regular, Human 100 Units/1 Ml) 0 units SUB-Q Q6HR [facility]; Protocol Lisinopril (Lisinopril 20 Mg Tab) 20 mg PO QDAY [facility] Last Admin: 01/20/22 09:49 Dose: 20 mg Metoclopramide HCl (Metoclopramide 10 Mg/2 Ml Inj) 10 mg IV Q6H PRN PRN Reason: Nausea And Vomiting Morphine Sulfate (Morphine 2 Mg/1 Ml Inj) 2 mg IV Q4H PRN PRN Reason: Pain, Moderate (4-6) Morphine Sulfate (Morphine 4 Mg/1 Ml Inj) 4 mg IV Q4H PRN PRN Reason: Pain , Severe (7-10) Naloxone HCl (Naloxone 0.4 Mg/1 Ml Inj) 0.1 mg IV Q2MIN PRN PRN Reason: Res Rate </= 8 or 02 SAT < 92% Ondansetron HCl (Ondansetron 4 Mg/2 Ml Inj) 4 mg IV Q8H PRN PRN Reason: Nausea And Vomiting Sodium Chloride (Sodium Chloride 0.9% 10 Ml Flush Syringe) 10 ml IV BID [facility] Last Admin: 01/20/22 09:49 Dose: 10 ml Sodium Chloride (Sodium Chloride 0.9% 10 Ml Flush Syringe) 10 ml IV PRN PRN PRN Reason: LINE FLUSH Review of Systems - Review of Systems All systems: negative (10 Systems reviewed and negative except as mentioned above in the history of present illness) Exam - Constitutional Vital Signs: Temp Pulse Resp BP Pulse Ox 98.8 F 93 H 12 138/75 89 01/20/22 12:00 01/20/22 12:31 01/20/22 12:31 01/20/22 12:31 01/20/22 12:31 General appearance: obese - EENT Eyes: EOM intact ENT: hearing intact - Neck Neck: supple - Respiratory Respiratory effort: other (Bilateral wheezing) - Cardiovascular Rhythm: regular - Gastrointestinal General gastrointestinal: Present: other (Obese positive bowel sounds distended) - Integumentary Integumentary: Present: dry - Musculoskeletal Musculoskeletal: normal - Neurologic Neurological: alert and oriented x3 - Psychiatric Psychiatric: appropriate mood/affect - Labs CBC & Chem 7: 01/20/22 04:22 01/20/22 04:22 Lab Results: Laboratory Results - last 24 hr 01/19/22 01/19/22 01/19/22 20:13 21:03 21:03 WBC RBC Hgb Hct MCV MCH MCHC RDW Plt Count Lymph % (Auto) Keith % (Auto) Eos % (Auto) Baso % (Auto) Lymph # (Auto) Keith # (Auto) Eos # (Auto) Baso # (Auto) Seg Neutrophils % Seg Neutrophils # PT 14.3 INR 1.00 APTT 22.3 L Sodium 139 Potassium 5.0 Chloride 95.3 L Carbon Dioxide 33 H Anion Gap 16 BUN 55 H Creatinine 1.0 Estimated GFR > 60 BUN/Creatinine Ratio 55 Glucose 245 H POC Glucose Lactic Acid 2.20 H* Calcium 8.7 Magnesium 2.30 Total Bilirubin 0.20 AST 13 ALT 32 Alkaline Phosphatase 81 Troponin T Total Protein 5.5 L D Albumin 3.6 L Albumin/Globulin Ratio 1.9 Blood Type Antibody Screen 01/19/22 01/19/22 01/19/22 21:03 21:03 21:03 WBC 18.4 H RBC 4.65 Hgb 10.0 L Hct 32.0 L MCV 69 L MCH 21 L MCHC 31 L RDW 18.0 H Plt Count 484 H Lymph % (Auto) 9.7 L Keith % (Auto) 7.5 H Eos % (Auto) 0.2 Baso % (Auto) 0.8 Lymph # (Auto) 1.8 Keith # (Auto) 1.4 H Eos # (Auto) 0.0 Baso # (Auto) 0.1 Seg Neutrophils % 81.8 H Seg Neutrophils # 15.0 H PT INR APTT Sodium Potassium Chloride Carbon Dioxide Anion Gap BUN Creatinine Estimated GFR BUN/Creatinine Ratio Glucose POC Glucose Lactic Acid Calcium Magnesium Total Bilirubin AST ALT Alkaline Phosphatase Troponin T < 0.010 Total Protein Albumin Albumin/Globulin Ratio Blood Type O POSITIVE Antibody Screen Negative 01/19/22 01/20/22 01/20/22 21:57 04:22 04:22 WBC 18.3 H RBC 4.66 Hgb 9.7 L Hct 32.2 L MCV 69 L MCH 21 L MCHC 30 L RDW 17.5 H Plt Count 436 Lymph % (Auto) 10.5 L Keith % (Auto) 3.4 Eos % (Auto) 0.1 Baso % (Auto) 0.5 Lymph # (Auto) 1.9 Keith # (Auto) 0.6 Eos # (Auto) 0.0 Baso # (Auto) 0.1 Seg Neutrophils % 85.5 H Seg Neutrophils # 15.6 H PT INR APTT Sodium 142 Potassium 5.0 Chloride 98.7 Carbon Dioxide 37 H Anion Gap 11 BUN 48 H Creatinine 0.8 Estimated GFR > 60 BUN/Creatinine Ratio 60 Glucose 199 H POC Glucose Lactic Acid 1.90 Calcium 8.6 Magnesium Total Bilirubin AST ALT Alkaline Phosphatase Troponin T Total Protein Albumin Albumin/Globulin Ratio Blood Type Antibody Screen 01/20/22 07:12 WBC RBC Hgb Hct MCV MCH MCHC RDW Plt Count Lymph % (Auto) Keith % (Auto) Eos % (Auto) Baso % (Auto) Lymph # (Auto) Keith # (Auto) Eos # (Auto) Baso # (Auto) Seg Neutrophils % Seg Neutrophils # PT INR APTT Sodium Potassium Chloride Carbon Dioxide Anion Gap BUN Creatinine Estimated GFR BUN/Creatinine Ratio Glucose POC Glucose 184 H Lactic Acid Calcium Magnesium Total Bilirubin AST ALT Alkaline Phosphatase Troponin T Total Protein Albumin Albumin/Globulin Ratio Blood Type Antibody Screen Assessment and Plan Patient without any major gastrointestinal blood loss as evidenced by lack of multiple large bloody bowel movements and essentially stable hemoglobin Given this, and patient's significant increased risk for sedation at this junction given his persistent shortness of breath and relatively high oxygen requirements risks of colonoscopy outweigh the benefits at this juncture Therefore, recommend treating underlying pulmonary issues and once patient is optimized can consider colonoscopy. If hemoglobin continues to drop that he require inpatient colonoscopy however if hemoglobin remains stable around the current level then could arrange as an outpatient GI will sign off please call us back if we can be of any further assistance Differential diagnosis includes hemorrhoids, fissure, polyp, AVM, malignancy, etc. This is consistent with lower GI bleed therefore will stop PPI - Patient Problems (1) Rectal bleeding Current Visit: Yes Status: Acute (2) GI bleed Current Visit: Yes Status: Acute (3) Obesity hypoventilation syndrome Current Visit: No Status: Acute (4) Shortness of breath Current Visit: No Status: Acute
[2022-01-20] MEDS: INSULIN REGULAR, HUMAN 100 UNITS/1 ML SUB-Q SCH ×2 (12:52→17:32)
[2022-01-20] MEDS: busPIRone 10 MG TAB PO SCH ×3 (16:18→22:53)
[2022-01-20] MEDS ORDERED: PANTOPRAZOLE 40 MG TAB PO SCH (16:30)
[2022-01-20] MEDS ORDERED: NON-FORMULARY EACH (Prednisone [Prednisone 10 Mg (6-Day Pack, 21 Tabs)] 10 MG Tab.Ds.Pk) PO SCH (17:30)
--- NOTE | 2022-01-20 17:36 | Progress Note ---
<BÁRBARASELENA HKayla - Last Filed: 01/20/22 18:23> Assessment and Plan Assessment and plan: This is a 46-year-old male with HTN, COPD on home oxygen, ANNETTA on CPAP and asthma admitted with possible GI bleed Neuro: Anxiety -BuSpar -Reorientation as needed -Maintain sleep-wake cycle -As needed analgesia Cardiac: h/o HTN -Blood pressure monitoring per protocol -Continue home lisinopril Respiratory: Chronic hypoxic respiratory failure, h/o COPD and asthma -BiPAP nightly -DuoNeb -Salter in the a.m. -See RT notes for titration -Pulmonary hygiene -SPO2 monitoring per protocol -Continue prednisone taper that patient was discharged with yesterday GI: ? GI bleed, morbid obesity, moderate protein calorie malnutrition -GI consulted, appreciate recommendations -24 hours -2540 mL -PPI -CC diet : NAD -Monitor intake and output -Renally dose medications -Avoid nephrotoxic medications -Trend BMP ID: NAD -Monitor WBC and temperature curve Endo: Hyperglycemia -Avoid hypoglycemia -SSI -Accu-Cheks q. 6 Heme: Leukocytosis -Trend CBC -Transfuse hemoglobin less than 7 -SCDs to BLE while in bed -Avoid chemical anticoagulation in setting of GI bleed The high probability of a clinically significant, sudden or life threatening deterioration of the [multiple] system(s) required my full and direct attention, intervention and personal management. The aggregate critical care time was [60] minutes. This time is in addition to time spent performing reported procedures but includes the following: [x] Data Review and interpretation [x] Patient assessment and monitoring of vital signs [x] Documentation [x] Medication orders and management Disposition Plan: imcu Total Time Spent with Patient (Minutes): 60 History Interval history: This is a 46-year-old male with HTN, former smoker, COPD on home oxygen, ANNETTA with CPAP use and asthma who presented to the emergency department on 01/19 with dyspnea and respiratory distress via EMS. Of note patient was discharged on 01/19 where he was admitted for COPD exacerbation and discharged with home O2. Patient's stated that he had a bloody stool per rectum and had acute respiratory distress. EMS placed patient on CPAP and gave steroids and Solu-Medrol in the field. Recommend emergency department showed leukocytosis, H/H of 10/32, platelets 44, lactic acidosis at 2.2 and CXR showed proved patchy airspace disease with in the lower lungs. Patient was admitted to the hospitalist service with consult to GI with GI bleed. Hospital course to date: 01/20: Patient weaned from BiPAP to salter. Started on BuSpar. Started on CC diet and Protonix changed to p.o. No further bloody bowel movements noted. Hospitalist Physical - Constitutional Vitals: Temp Pulse Resp BP Pulse Ox 97.9 F 91 H 20 147/76 92 01/20/22 16:00 01/20/22 17:00 01/20/22 17:00 01/20/22 17:00 01/20/22 17:00 General appearance: Present: no acute distress, well-nourished, obese - EENT Eyes: Present: PERRL, EOM intact ENT: hearing intact, clear oral mucosa, dentition normal - Neck Neck: Present: normal ROM - Respiratory Respiratory effort: normal Respiratory: bilateral: diminished - Cardiovascular Rhythm: regular Heart Sounds: Present: S1 & S2. Absent: systolic murmur, diastolic murmur - Extremities Extremities: no ischemia, pulses intact, pulses symmetrical, No edema, normal temperature, normal color, Full ROM Peripheral Pulses: within normal limits - Abdominal General gastrointestinal: soft, non-tender, non-distended, normal bowel sounds - Integumentary Integumentary: Present: warm, dry - Psychiatric Psychiatric: cooperative - Neurologic Neurologic: CNII-XII intact, no focal deficits, moves all extremities - Allied Health Allied health notes reviewed: nursing, RT, social work HEART Score - HEART Score Troponin: WBC 18.3 K/mm3 (4.5-11.0) H 01/20/22 04:22 RBC 4.66 M/mm3 (3.65-5.03) 01/20/22 04:22 Hgb 9.7 gm/dl (11.8-15.2) L 01/20/22 04:22 Hct 32.2 % (35.5-45.6) L 01/20/22 04:22 MCV 69 fl (84-94) L 01/20/22 04:22 MCH 21 pg (28-32) L 01/20/22 04:22 MCHC 30 % (32-34) L 01/20/22 04:22 RDW 17.5 % (13.2-15.2) H 01/20/22 04:22 Plt Count 436 K/mm3 (140-440) 01/20/22 04:22 Lymph % (Auto) 10.5 % (13.4-35.0) L 01/20/22 04:22 [place] % (Auto) 3.4 % (0.0-7.3) 01/20/22 04:22 Eos % (Auto) 0.1 % (0.0-4.3) 01/20/22 04:22 Baso % (Auto) 0.5 % (0.0-1.8) 01/20/22 04:22 Lymph # (Auto) 1.9 K/mm3 (1.2-5.4) 01/20/22 04:22 [place] # (Auto) 0.6 K/mm3 (0.0-0.8) 01/20/22 04:22 Eos # (Auto) 0.0 K/mm3 (0.0-0.4) 01/20/22 04:22 Baso # (Auto) 0.1 K/mm3 (0.0-0.1) 01/20/22 04:22 Seg Neutrophils % 85.5 % (40.0-70.0) H 01/20/22 04:22 Seg Neutrophils # 15.6 K/mm3 (1.8-7.7) H 01/20/22 04:22 PT 14.3 Sec. (12.2-14.9) 01/19/22 20:13 INR 1.00 (0.87-1.13) 01/19/22 20:13 APTT 22.3 Sec. (24.2-36.6) L 01/19/22 20:13 Sodium 142 mmol/L (137-145) 01/20/22 04:22 Potassium 5.0 mmol/L (3.6-5.0) 01/20/22 04:22 Chloride 98.7 mmol/L (98-107) 01/20/22 04:22 Carbon Dioxide 37 mmol/L (22-30) H 01/20/22 04:22 Anion Gap 11 mmol/L 01/20/22 04:22 BUN 48 mg/dL (9-20) H 01/20/22 04:22 Creatinine 0.8 mg/dL (0.8-1.3) 01/20/22 04:22 Estimated GFR > 60 ml/min 01/20/22 04:22 BUN/Creatinine Ratio 60 % 01/20/22 04:22 Glucose 199 mg/dL (75-100) H 01/20/22 04:22 POC Glucose 125 mg/dL (70-105) H 01/20/22 16:40 Lactic Acid 1.90 mmol/L (0.7-2.0) 01/19/22 21:57 Calcium 8.6 mg/dL (8.4-10.2) 01/20/22 04:22 Magnesium 2.30 mg/dL (1.7-2.3) 01/19/22 21:03 Total Bilirubin 0.20 mg/dL (0.1-1.2) 01/19/22 21:03 AST 13 units/L (5-40) 01/19/22 21:03 ALT 32 units/L (7-56) 01/19/22 21:03 Alkaline Phosphatase 81 units/L (35-129) 01/19/22 21:03 Troponin T < 0.010 ng/mL (0.00-0.029) 01/19/22 21:03 Total Protein 5.5 g/dL (6.3-8.2) L D 01/19/22 21:03 Albumin 3.6 g/dL (3.9-5) L 01/19/22 21:03 Albumin/Globulin Ratio 1.9 % 01/19/22 21:03 Nasal Screen MRSA (PCR) Positive (Negative) 01/20/22 07:12 Results - Labs CBC & Chem 7: 01/20/22 04:22 01/20/22 04:22 Labs: Laboratory Last Values WBC 18.3 K/mm3 (4.5-11.0) H 01/20/22 04:22 RBC 4.66 M/mm3 (3.65-5.03) 01/20/22 04:22 Hgb 9.7 gm/dl (11.8-15.2) L 01/20/22 04:22 Hct 32.2 % (35.5-45.6) L 01/20/22 04:22 MCV 69 fl (84-94) L 01/20/22 04:22 MCH 21 pg (28-32) L 01/20/22 04:22 MCHC 30 % (32-34) L 01/20/22 04:22 RDW 17.5 % (13.2-15.2) H 01/20/22 04:22 Plt Count 436 K/mm3 (140-440) 01/20/22 04:22 Lymph % (Auto) 10.5 % (13.4-35.0) L 01/20/22 04:22 [place] % (Auto) 3.4 % (0.0-7.3) 01/20/22 04:22 Eos % (Auto) 0.1 % (0.0-4.3) 01/20/22 04:22 Baso % (Auto) 0.5 % (0.0-1.8) 01/20/22 04:22 Lymph # (Auto) 1.9 K/mm3 (1.2-5.4) 01/20/22 04:22 [place] # (Auto) 0.6 K/mm3 (0.0-0.8) 01/20/22 04:22 Eos # (Auto) 0.0 K/mm3 (0.0-0.4) 01/20/22 04:22 Baso # (Auto) 0.1 K/mm3 (0.0-0.1) 01/20/22 04:22 Seg Neutrophils % 85.5 % (40.0-70.0) H 01/20/22 04:22 Seg Neutrophils # 15.6 K/mm3 (1.8-7.7) H 01/20/22 04:22 PT 14.3 Sec. (12.2-14.9) 01/19/22 20:13 INR 1.00 (0.87-1.13) 01/19/22 20:13 APTT 22.3 Sec. (24.2-36.6) L 01/19/22 20:13 Sodium 142 mmol/L (137-145) 01/20/22 04:22 Potassium 5.0 mmol/L (3.6-5.0) 01/20/22 04:22 Chloride 98.7 mmol/L (98-107) 01/20/22 04:22 Carbon Dioxide 37 mmol/L (22-30) H 01/20/22 04:22 Anion Gap 11 mmol/L 01/20/22 04:22 BUN 48 mg/dL (9-20) H 01/20/22 04:22 Creatinine 0.8 mg/dL (0.8-1.3) 01/20/22 04:22 Estimated GFR > 60 ml/min 01/20/22 04:22 BUN/Creatinine Ratio 60 % 01/20/22 04:22 Glucose 199 mg/dL (75-100) H 01/20/22 04:22 POC Glucose 125 mg/dL (70-105) H 01/20/22 16:40 Lactic Acid 1.90 mmol/L (0.7-2.0) 01/19/22 21:57 Calcium 8.6 mg/dL (8.4-10.2) 01/20/22 04:22 Magnesium 2.30 mg/dL (1.7-2.3) 01/19/22 21:03 Total Bilirubin 0.20 mg/dL (0.1-1.2) 01/19/22 21:03 AST 13 units/L (5-40) 01/19/22 21:03 ALT 32 units/L (7-56) 01/19/22 21:03 Alkaline Phosphatase 81 units/L (35-129) 01/19/22 21:03 Troponin T < 0.010 ng/mL (0.00-0.029) 01/19/22 21:03 Total Protein 5.5 g/dL (6.3-8.2) L D 01/19/22 21:03 Albumin 3.6 g/dL (3.9-5) L 01/19/22 21:03 Albumin/Globulin Ratio 1.9 % 01/19/22 21:03 Nasal Screen MRSA (PCR) Positive (Negative) 01/20/22 07:12 Blood Type O POSITIVE 01/19/22 21:03 Antibody Screen Negative 01/19/22 21:03 Microbiology: Microbiology 01/19/22 21:57 Peripheral/Venous Blood Culture - Preliminary Culture in Progress 01/19/22 21:57 Peripheral/Venous Blood Culture - Preliminary Culture in Progress 01/19/22 Unknown Stool - Stool Aspirate Stool Occult Blood (MELVIN) - Final Multani/IV: Voiding Method Urinal Active Medications - Current Medications Current Medications: Generic Name Dose Route Start Last Admin Trade Name Freq PRN Reason Stop Dose Admin Acetaminophen 650 mg 01/19/22 21:54 Acetaminophen 325 Mg Tab PO Q4H PRN Pain MILD(1-3)/Fever >100.5/CHANG Albuterol 2.5 mg 01/19/22 21:54 Albuterol 2.5 Mg/3 Ml Nebu IH Q3HRT PRN Shortness Of Breath Albuterol/Ipratropium 1 ampul 01/20/22 02:00 01/20/22 14:27 Ipratropium/Albuterol Sulfate 3 Ml Ampul.Neb IH 1 ampul Q6HRT ZKAI Administration Alprazolam 0.5 mg 01/19/22 21:56 Alprazolam 0.5 Mg Tab PO Q8H PRN Anxiety Buspirone HCl 10 mg 01/20/22 15:00 01/20/22 16:23 Buspirone 10 Mg Tab PO Not Given BID ZAKI Dextrose 50 ml 01/20/22 08:40 Dextrose 50% In Water (25gm) 50 Ml Syringe IV Q30MIN PRN Hypoglycemia Protocol Insulin Human Regular 0 units 01/20/22 12:00 01/20/22 17:32 Insulin Regular, Human 100 Units/1 Ml SUB-Q Not Given Q6HR [facility] Protocol Lisinopril 20 mg 01/20/22 10:00 01/20/22 09:49 Lisinopril 20 Mg Tab PO 20 mg QDAY ZAKI Administration Metoclopramide HCl 10 mg 01/19/22 21:38 Metoclopramide 10 Mg/2 Ml Inj IV Q6H PRN Nausea And Vomiting Miscellaneous Medication 10 mg 01/20/22 17:30 Prednisone [Prednisone 10 Mg (6-Day Pack, 21 Tabs)] PO .TAPER ZAKI Morphine Sulfate 2 mg 01/19/22 21:54 Morphine 2 Mg/1 Ml Inj IV Q4H PRN Pain, Moderate (4-6) Morphine Sulfate 4 mg 01/19/22 21:54 Morphine 4 Mg/1 Ml Inj IV Q4H PRN Pain , Severe (7-10) Naloxone HCl 0.1 mg 01/19/22 21:38 Naloxone 0.4 Mg/1 Ml Inj IV Q2MIN PRN Res Rate </= 8 or 02 SAT < 92% Ondansetron HCl 4 mg 01/19/22 21:54 Ondansetron 4 Mg/2 Ml Inj IV Q8H PRN Nausea And Vomiting Pantoprazole Sodium 40 mg 01/20/22 16:30 01/20/22 16:18 Pantoprazole 40 Mg Tab PO 40 mg BIDAC ZAKI Administration Sodium Chloride 10 ml 01/19/22 22:00 01/20/22 09:49 Sodium Chloride 0.9% 10 Ml Flush Syringe IV 10 ml BID ZAKI Administration Sodium Chloride 10 ml 01/19/22 21:54 Sodium Chloride 0.9% 10 Ml Flush Syringe IV PRN PRN LINE FLUSH <MONIQUE BINGHAM - Last Filed: 01/23/22 11:53> History Interval history: I saw and evaluated the patient. Discussed with the nurse practitioner and agree with their findings and plan as documented in this note. Hospitalist Physical - Constitutional Vitals: Temp Pulse Resp BP Pulse Ox 98.9 F 72 21 117/54 97 01/23/22 11:50 01/23/22 11:00 01/23/22 11:00 01/23/22 11:00 01/23/22 11:00 HEART Score - HEART Score Troponin: Troponin T < 0.010 ng/mL (0.00-0.029) 01/19/22 21:03 Results - Labs CBC & Chem 7: 01/22/22 04:53 01/22/22 04:53 Labs: Laboratory Last Values WBC 10.9 K/mm3 (4.5-11.0) 01/22/22 04:53 RBC 3.78 M/mm3 (3.65-5.03) 01/22/22 04:53 Hgb 8.1 gm/dl (11.8-15.2) L 01/22/22 04:53 Hct 26.6 % (35.5-45.6) L 01/22/22 04:53 MCV 70 fl (84-94) L 01/22/22 04:53 MCH 21 pg (28-32) L 01/22/22 04:53 MCHC 30 % (32-34) L 01/22/22 04:53 RDW 17.5 % (13.2-15.2) H 01/22/22 04:53 Plt Count 390 K/mm3 (140-440) 01/22/22 04:53 Lymph % (Auto) 10.5 % (13.4-35.0) L 01/20/22 04:22 [place] % (Auto) 3.4 % (0.0-7.3) 01/20/22 04:22 Eos % (Auto) 0.1 % (0.0-4.3) 01/20/22 04:22 Baso % (Auto) 0.5 % (0.0-1.8) 01/20/22 04:22 Lymph # (Auto) Office Clerk 01/22/22 04:53 [place] # (Auto) 0.6 K/mm3 (0.0-0.8) 01/20/22 04:22 Eos # (Auto) 0.0 K/mm3 (0.0-0.4) 01/20/22 04:22 Baso # (Auto) 0.1 K/mm3 (0.0-0.1) 01/20/22 04:22 Add Manual Diff Complete 01/22/22 04:53 Total Counted 100 01/22/22 04:53 Seg Neutrophils % 85.5 % (40.0-70.0) H 01/20/22 04:22 Seg Neuts % (Manual) 39.0 % (40.0-70.0) L 01/22/22 04:53 Band Neutrophils % 0 % 01/22/22 04:53 Lymphocytes % (Manual) 54.0 % (13.4-35.0) H 01/22/22 04:53 Reactive Lymphs % (Man) 1.0 % 01/22/22 04:53 Monocytes % (Manual) 4.0 % (0.0-7.3) 01/22/22 04:53 Eosinophils % (Manual) 2.0 % (0.0-4.3) 01/22/22 04:53 Basophils % (Manual) 0 % (0.0-1.8) 01/22/22 04:53 Metamyelocytes % 0 % 01/22/22 04:53 Myelocytes % 0 % 01/22/22 04:53 Promyelocytes % 0 % 01/22/22 04:53 Blast Cells % 0 % 01/22/22 04:53 Nucleated RBC % Not Reportable 01/22/22 04:53 Seg Neutrophils # 15.6 K/mm3 (1.8-7.7) H 01/20/22 04:22 Seg Neutrophils # Man 4.3 K/mm3 (1.8-7.7) 01/22/22 04:53 Band Neutrophils # 0.0 K/mm3 01/22/22 04:53 Lymphocytes # (Manual) 5.9 K/mm3 (1.2-5.4) H 01/22/22 04:53 Abs React Lymphs (Man) 0.1 K/mm3 01/22/22 04:53 Monocytes # (Manual) 0.4 K/mm3 (0.0-0.8) 01/22/22 04:53 Eosinophils # (Manual) 0.2 K/mm3 (0.0-0.4) 01/22/22 04:53 Basophils # (Manual) 0.0 K/mm3 (0.0-0.1) 01/22/22 04:53 Metamyelocytes # 0.0 K/mm3 01/22/22 04:53 Myelocytes # 0.0 K/mm3 01/22/22 04:53 Promyelocytes # 0.0 K/mm3 01/22/22 04:53 Blast Cells # 0.0 K/mm3 01/22/22 04:53 WBC Morphology Not Reportable 01/22/22 04:53 Hypersegmented Neuts Not Reportable 01/22/22 04:53 Hyposegmented Neuts Not Reportable 01/22/22 04:53 Hypogranular Neuts Not Reportable 01/22/22 04:53 Smudge Cells Not Reportable 01/22/22 04:53 Toxic Granulation Not Reportable 01/22/22 04:53 Toxic Vacuolation Not Reportable 01/22/22 04:53 Dohle Bodies Not Reportable 01/22/22 04:53 Pelger-Huet Anomaly Not Reportable 01/22/22 04:53 Jimena Rods Not Reportable 01/22/22 04:53 Platelet Estimate Consistent w auto 01/22/22 04:53 Clumped Platelets Not Reportable 01/22/22 04:53 Plt Clumps, EDTA Not Reportable 01/22/22 04:53 Large Platelets Not Reportable 01/22/22 04:53 Giant Platelets Not Reportable 01/22/22 04:53 Platelet Satelliting Not Reportable 01/22/22 04:53 Plt Morphology Comment Not Reportable 01/22/22 04:53 RBC Morphology Not Reportable 01/22/22 04:53 Dimorphic RBCs Not Reportable 01/22/22 04:53 Polychromasia Not Reportable 01/22/22 04:53 Hypochromasia 2+ 01/22/22 04:53 Poikilocytosis Not Reportable 01/22/22 04:53 Anisocytosis Not Reportable 01/22/22 04:53 Microcytosis Not Reportable 01/22/22 04:53 Macrocytosis Not Reportable 01/22/22 04:53 Spherocytes Not Reportable 01/22/22 04:53 Pappenheimer Bodies Not Reportable 01/22/22 04:53 Sickle Cells Not Reportable 01/22/22 04:53 Target Cells Not Reportable 01/22/22 04:53 Tear Drop Cells Not Reportable 01/22/22 04:53 Ovalocytes Not Reportable 01/22/22 04:53 Helmet Cells Not Reportable 01/22/22 04:53 Cortes-Flint Bodies Not Reportable 01/22/22 04:53 Laurel Rings Not Reportable 01/22/22 04:53 Yinka Cells Not Reportable 01/22/22 04:53 Bite Cells Not Reportable 01/22/22 04:53 Crenated Cell Not Reportable 01/22/22 04:53 Elliptocytes Not Reportable 01/22/22 04:53 Acanthocytes (Spur) Not Reportable 01/22/22 04:53 Rouleaux Not Reportable 01/22/22 04:53 Hemoglobin C Crystals Not Reportable 01/22/22 04:53 Schistocytes Not Reportable 01/22/22 04:53 Malaria parasites Not Reportable 01/22/22 04:53 Leroy Bodies Not Reportable 01/22/22 04:53 Hem Pathologist Commnt No 01/22/22 04:53 PT 14.3 Sec. (12.2-14.9) 01/19/22 20:13 INR 1.00 (0.87-1.13) 01/19/22 20:13 APTT 22.3 Sec. (24.2-36.6) L 01/19/22 20:13 Sodium 138 mmol/L (137-145) 01/22/22 04:53 Potassium 4.7 mmol/L (3.6-5.0) 01/22/22 04:53 Chloride 98.2 mmol/L (98-107) 01/22/22 04:53 Carbon Dioxide 35 mmol/L (22-30) H 01/22/22 04:53 Anion Gap 10 mmol/L 01/22/22 04:53 BUN 22 mg/dL (9-20) H 01/22/22 04:53 Creatinine 0.5 mg/dL (0.8-1.3) L 01/22/22 04:53 Estimated GFR > 60 ml/min 01/22/22 04:53 BUN/Creatinine Ratio 44 % 01/22/22 04:53 Glucose 92 mg/dL (75-100) 01/22/22 04:53 POC Glucose 115 mg/dL (70-105) H 01/23/22 00:51 Lactic Acid 1.90 mmol/L (0.7-2.0) 01/19/22 21:57 Calcium 8.0 mg/dL (8.4-10.2) L 01/22/22 04:53 Magnesium 2.30 mg/dL (1.7-2.3) 01/19/22 21:03 Total Bilirubin 0.20 mg/dL (0.1-1.2) 01/19/22 21:03 AST 13 units/L (5-40) 01/19/22 21:03 ALT 32 units/L (7-56) 01/19/22 21:03 Alkaline Phosphatase 81 units/L (35-129) 01/19/22 21:03 Troponin T < 0.010 ng/mL (0.00-0.029) 01/19/22 21:03 Total Protein 5.5 g/dL (6.3-8.2) L D 01/19/22 21:03 Albumin 3.6 g/dL (3.9-5) L 01/19/22 21:03 Albumin/Globulin Ratio 1.9 % 01/19/22 21:03 Nasal Screen MRSA (PCR) Positive (Negative) 01/20/22 07:12 Blood Type O POSITIVE 01/19/22 21:03 Antibody Screen Negative 01/19/22 21:03 Microbiology: Microbiology 01/19/22 21:57 Peripheral/Venous Blood Culture - Preliminary NO GROWTH AFTER 72 HOURS 01/19/22 21:57 Peripheral/Venous Blood Culture - Preliminary NO GROWTH AFTER 72 HOURS Multani/IV: Voiding Method Urinal Active Medications - Current Medications Current Medications: Generic Name Dose Route Start Last Admin Trade Name Freq PRN Reason Stop Dose Admin Acetaminophen 650 mg 01/19/22 21:54 Acetaminophen 325 Mg Tab PO Q4H PRN Pain MILD(1-3)/Fever >100.5/CHANG Albuterol 2.5 mg 01/19/22 21:54 Albuterol 2.5 Mg/3 Ml Nebu IH Q3HRT PRN Shortness Of Breath Albuterol/Ipratropium 1 ampul 01/20/22 02:00 01/23/22 09:45 Ipratropium/Albuterol Sulfate 3 Ml Ampul.Neb IH 1 ampul Q6HRT ZAKI Administration Alprazolam 0.5 mg 01/19/22 21:56 Alprazolam 0.5 Mg Tab PO Q8H PRN Anxiety Dextrose 50 ml 01/20/22 08:40 Dextrose 50% In Water (25gm) 50 Ml Syringe IV Q30MIN PRN Hypoglycemia Protocol Insulin Human Regular 0 units 01/20/22 12:00 01/23/22 07:41 Insulin Regular, Human 100 Units/1 Ml SUB-Q Not Given Q6HR [facility] Protocol Lisinopril 20 mg 01/20/22 10:00 01/23/22 10:18 Lisinopril 20 Mg Tab PO 20 mg QDAY ZAKI Administration Metoclopramide HCl 10 mg 01/19/22 21:38 Metoclopramide 10 Mg/2 Ml Inj IV Q6H PRN Nausea And Vomiting Morphine Sulfate 2 mg 01/19/22 21:54 Morphine 2 Mg/1 Ml Inj IV Q4H PRN Pain, Moderate (4-6) Morphine Sulfate 4 mg 01/19/22 21:54 Morphine 4 Mg/1 Ml Inj IV Q4H PRN Pain , Severe (7-10) Naloxone HCl 0.1 mg 01/19/22 21:38 Naloxone 0.4 Mg/1 Ml Inj IV Q2MIN PRN Res Rate </= 8 or 02 SAT < 92% Ondansetron HCl 4 mg 01/19/22 21:54 Ondansetron 4 Mg/2 Ml Inj IV Q8H PRN Nausea And Vomiting Pantoprazole Sodium 40 mg 01/22/22 10:00 01/23/22 10:17 Pantoprazole 40 Mg Tab PO 40 mg QDAC ZAKI Administration Prednisone 30 mg 01/23/22 10:00 01/23/22 10:17 Prednisone 10 Mg Tab PO 08/29/22 23:00 30 mg ONCE ZAKI Administration Prednisone 20 mg 01/24/22 10:00 Prednisone 20 Mg Tab PO 01/24/22 23:00 ONCE ZAKI Prednisone 10 mg 01/25/22 10:00 Prednisone 10 Mg Tab PO 01/25/22 23:00 ONCE ZAKI Sodium Chloride 10 ml 01/19/22 22:00 01/23/22 10:17 Sodium Chloride 0.9% 10 Ml Flush Syringe IV 10 ml BID ZAKI Administration Sodium Chloride 10 ml 01/19/22 21:54 Sodium Chloride 0.9% 10 Ml Flush Syringe IV PRN PRN LINE FLUSH
[2022-01-20] MEDS ORDERED: predniSONE 20 MG TAB PO SCH (18:00)
[2022-01-20] MEDS ORDERED: NON-FORMULARY EACH (Insulin Glargine,Hum.Rec.Anlog [Lantus Solostar] 100 UNIT/ML Insuln.Pe SQ SCH (22:00)
[2022-01-20] MEDS ORDERED: ENOXAPARIN 40 MG/0.4 ML INJ SUB-Q SCH (22:00)
[2022-01-21] MEDS: INSULIN REGULAR, HUMAN 100 UNITS/1 ML SUB-Q SCH ×4 (00:10→17:04)
[2022-01-21] MEDS: IPRATROPIUM/ALBUTEROL SULFATE 3 ML AMPUL.NEB IH SCH ×4 (01:31→21:00)
[2022-01-21 05:01] LABS: Hematocrit 27.5 % (35.5-45.6); Hemoglobin 8.3 gm/dl (11.8-15.2); Mean Corpuscular HGB Conc 30 % (32-34); Platelet Count 401 K/mm3 (140-440); Red Blood Count 3.94 M/mm3 (3.65-5.03); Red Cell Distribution Width 17.6 % (13.2-15.2)
[2022-01-21 05:02] LABS: Mean Corpuscular Volume 70 fl (84-94)
[2022-01-21 05:19] LABS: Blood Urea Nitrogen 33 mg/dL (9-20); Calcium 8.3 mg/dL (8.4-10.2); Hemolysis Index 0
[2022-01-21 05:33] LABS: BUN/Creatinine Ratio 47
[2022-01-21] MEDS: LISINOPRIL 20 MG TAB PO SCH (09:46)
[2022-01-21] MEDS: busPIRone 10 MG TAB PO SCH ×2 (09:47→10:04)
[2022-01-21] MEDS ORDERED: predniSONE 50 MG TAB PO SCH (10:00)
--- NOTE | 2022-01-21 13:55 | Progress Note ---
Assessment and Plan Assessment and plan: History Interval history: This is a 46-year-old male with HTN, former smoker, COPD on home oxygen, ANNETTA with CPAP use and asthma who presented to the emergency department on 01/19 with dyspnea and respiratory distress via EMS. Of note patient was discharged on 01/19 where he was admitted for COPD exacerbation and discharged with home O2. Patient's stated that he had a bloody stool per rectum and had acute respiratory distress. EMS placed patient on CPAP and gave steroids and Solu-Medrol in the field. Recommend emergency department showed leukocytosis, H/H of 10/32, platelets 44, lactic acidosis at 2.2 and CXR showed proved patchy airspace disease with in the lower lungs. Patient was admitted to the hospitalist service with consult to GI with GI bleed. Hospital course to date: 01/20: Patient weaned from BiPAP to salter. Started on BuSpar. Started on CC diet and Protonix changed to p.o. No further bloody bowel movements noted. 01/21: no acute complaints. Working to wean salter nasal cannula. discussed need for anxiolytic for better respiratory mechanics, patient is still declining. Hgb is still stable as are the patient's vitals...however unclear if patient having blood in stool or not as patient has not had bm yet. no plans for GI for scope. Ok with diet and protonix at this time. Assessment and plan: This is a 46-year-old male with HTN, COPD on home oxygen, ANNETTA on CPAP and asthma admitted with possible GI bleed Neuro: Anxiety -BuSpar -Reorientation as needed -Maintain sleep-wake cycle -As needed analgesia Cardiac: h/o HTN -Blood pressure monitoring per protocol -Continue home lisinopril Respiratory: Chronic hypoxic respiratory failure, h/o COPD and asthma -BiPAP nightly -DuoNeb -Salter in the a.m. -See RT notes for titration -Pulmonary hygiene -SPO2 monitoring per protocol -Continue prednisone taper that patient was discharged with yesterday GI: ? GI bleed, morbid obesity, moderate protein calorie malnutrition -GI consulted, appreciate recommendations -24 hours -2540 mL -PPI -CC diet : NAD -Monitor intake and output -Renally dose medications -Avoid nephrotoxic medications -Trend BMP ID: NAD -Monitor WBC and temperature curve Endo: Hyperglycemia -Avoid hypoglycemia -SSI -Accu-Cheks q. 6 Heme: Leukocytosis -Trend CBC -Transfuse hemoglobin less than 7 -SCDs to BLE while in bed -Avoid chemical anticoagulation in setting of GI bleed The high probability of a clinically significant, sudden or life threatening deterioration of the [multiple] system(s) required my full and direct attention, intervention and personal management. The aggregate critical care time was [60] minutes. This time is in addition to time spent performing reported procedures but includes the following: [x] Data Review and interpretation [x] Patient assessment and monitoring of vital signs [x] Documentation [x] Medication orders and management Disposition Plan: imcu Total Time Spent with Patient (Minutes): 60 History Interval history: No acute complaints. patient had not had a bm yet this AM so he did not know if there was blood still in stool. No acute complaints otherwise. Remains on [facility]. Hospitalist Physical - Physical exam Narrative exam: General appearance: Present: no acute distress, well-nourished, obese - EENT Eyes: Present: PERRL, EOM intact ENT: hearing intact, clear oral mucosa, dentition normal - Neck Neck: Present: normal ROM - Respiratory Respiratory effort: normal Respiratory: bilateral: diminished - Cardiovascular Rhythm: regular Heart Sounds: Present: S1 & S2. Absent: systolic murmur, diastolic murmur - Extremities Extremities: no ischemia, pulses intact, pulses symmetrical, No edema, normal temperature, normal color, Full ROM Peripheral Pulses: within normal limits - Abdominal General gastrointestinal: soft, non-tender, non-distended, normal bowel sounds - Integumentary Integumentary: Present: warm, dry - Psychiatric Psychiatric: cooperative - Neurologic Neurologic: CNII-XII intact, no focal deficits, moves all extremities - Allied Health Allied health notes reviewed: nursing, RT, social work - Constitutional Vitals: Temp Pulse Resp BP Pulse Ox 98.5 F 93 H 21 135/67 94 01/21/22 12:00 01/21/22 12:00 01/21/22 12:00 01/21/22 12:00 01/21/22 12:00 General appearance: Present: no acute distress, well-nourished, obese HEART Score - HEART Score Troponin: Troponin T < 0.010 ng/mL (0.00-0.029) 01/19/22 21:03 Results - Labs CBC & Chem 7: 01/21/22 04:30 01/21/22 04:30 Labs: Laboratory Last Values WBC 17.0 K/mm3 (4.5-11.0) H 01/21/22 04:30 RBC 3.94 M/mm3 (3.65-5.03) 01/21/22 04:30 Hgb 8.3 gm/dl (11.8-15.2) L 01/21/22 04:30 Hct 27.5 % (35.5-45.6) L 01/21/22 04:30 MCV 70 fl (84-94) L 01/21/22 04:30 MCH 21 pg (28-32) L 01/21/22 04:30 MCHC 30 % (32-34) L 01/21/22 04:30 RDW 17.6 % (13.2-15.2) H 01/21/22 04:30 Plt Count 401 K/mm3 (140-440) 01/21/22 04:30 Lymph % (Auto) 10.5 % (13.4-35.0) L 01/20/22 04:22 [place] % (Auto) 3.4 % (0.0-7.3) 01/20/22 04:22 Eos % (Auto) 0.1 % (0.0-4.3) 01/20/22 04:22 Baso % (Auto) 0.5 % (0.0-1.8) 01/20/22 04:22 Lymph # (Auto) 1.9 K/mm3 (1.2-5.4) 01/20/22 04:22 [place] # (Auto) 0.6 K/mm3 (0.0-0.8) 01/20/22 04:22 Eos # (Auto) 0.0 K/mm3 (0.0-0.4) 01/20/22 04:22 Baso # (Auto) 0.1 K/mm3 (0.0-0.1) 01/20/22 04:22 Seg Neutrophils % 85.5 % (40.0-70.0) H 01/20/22 04:22 Seg Neutrophils # 15.6 K/mm3 (1.8-7.7) H 01/20/22 04:22 PT 14.3 Sec. (12.2-14.9) 01/19/22 20:13 INR 1.00 (0.87-1.13) 01/19/22 20:13 APTT 22.3 Sec. (24.2-36.6) L 01/19/22 20:13 Sodium 142 mmol/L (137-145) 01/21/22 04:30 Potassium 4.6 mmol/L (3.6-5.0) 01/21/22 04:30 Chloride 99.5 mmol/L (98-107) 01/21/22 04:30 Carbon Dioxide 38 mmol/L (22-30) H 01/21/22 04:30 Anion Gap 9 mmol/L 01/21/22 04:30 BUN 33 mg/dL (9-20) H 01/21/22 04:30 Creatinine 0.7 mg/dL (0.8-1.3) L 01/21/22 04:30 Estimated GFR > 60 ml/min 01/21/22 04:30 BUN/Creatinine Ratio 47 % 01/21/22 04:30 Glucose 115 mg/dL (75-100) H 01/21/22 04:30 POC Glucose 120 mg/dL (70-105) H 01/21/22 00:08 Lactic Acid 1.90 mmol/L (0.7-2.0) 01/19/22 21:57 Calcium 8.3 mg/dL (8.4-10.2) L 01/21/22 04:30 Magnesium 2.30 mg/dL (1.7-2.3) 01/19/22 21:03 Total Bilirubin 0.20 mg/dL (0.1-1.2) 01/19/22 21:03 AST 13 units/L (5-40) 01/19/22 21:03 ALT 32 units/L (7-56) 01/19/22 21:03 Alkaline Phosphatase 81 units/L (35-129) 01/19/22 21:03 Troponin T < 0.010 ng/mL (0.00-0.029) 01/19/22 21:03 Total Protein 5.5 g/dL (6.3-8.2) L D 01/19/22 21:03 Albumin 3.6 g/dL (3.9-5) L 01/19/22 21:03 Albumin/Globulin Ratio 1.9 % 01/19/22 21:03 Nasal Screen MRSA (PCR) Positive (Negative) 01/20/22 07:12 Blood Type O POSITIVE 01/19/22 21:03 Antibody Screen Negative 01/19/22 21:03 Microbiology: Microbiology 01/19/22 21:57 Peripheral/Venous Blood Culture - Preliminary NO GROWTH AFTER 24 HOURS 01/19/22 21:57 Peripheral/Venous Blood Culture - Preliminary NO GROWTH AFTER 24 HOURS Multani/IV: Voiding Method Urinal Active Medications - Current Medications Current Medications: Generic Name Dose Route Start Last Admin Trade Name Freq PRN Reason Stop Dose Admin Acetaminophen 650 mg 01/19/22 21:54 Acetaminophen 325 Mg Tab PO Q4H PRN Pain MILD(1-3)/Fever >100.5/CHANG Albuterol 2.5 mg 01/19/22 21:54 Albuterol 2.5 Mg/3 Ml Nebu IH Q3HRT PRN Shortness Of Breath Albuterol/Ipratropium 1 ampul 01/20/22 02:00 01/21/22 08:28 Ipratropium/Albuterol Sulfate 3 Ml Ampul.Neb IH 1 ampul Q6HRT ZAKI Administration Alprazolam 0.5 mg 01/19/22 21:56 Alprazolam 0.5 Mg Tab PO Q8H PRN Anxiety Dextrose 50 ml 01/20/22 08:40 Dextrose 50% In Water (25gm) 50 Ml Syringe IV Q30MIN PRN Hypoglycemia Protocol Insulin Human Regular 0 units 01/20/22 12:00 01/21/22 12:22 Insulin Regular, Human 100 Units/1 Ml SUB-Q Not Given Q6HR [facility] Protocol Lisinopril 20 mg 01/20/22 10:00 01/21/22 09:46 Lisinopril 20 Mg Tab PO 20 mg QDAY ZAKI Administration Metoclopramide HCl 10 mg 01/19/22 21:38 Metoclopramide 10 Mg/2 Ml Inj IV Q6H PRN Nausea And Vomiting Morphine Sulfate 2 mg 01/19/22 21:54 Morphine 2 Mg/1 Ml Inj IV Q4H PRN Pain, Moderate (4-6) Morphine Sulfate 4 mg 01/19/22 21:54 Morphine 4 Mg/1 Ml Inj IV Q4H PRN Pain , Severe (7-10) Naloxone HCl 0.1 mg 01/19/22 21:38 Naloxone 0.4 Mg/1 Ml Inj IV Q2MIN PRN Res Rate </= 8 or 02 SAT < 92% Ondansetron HCl 4 mg 01/19/22 21:54 Ondansetron 4 Mg/2 Ml Inj IV Q8H PRN Nausea And Vomiting Prednisone 50 mg 01/21/22 10:00 Prednisone 50 Mg Tab PO 01/21/22 23:00 ONCE ZAKI Prednisone 40 mg 01/22/22 10:00 Prednisone 20 Mg Tab PO 01/22/22 23:00 ONCE ZAKI Prednisone 30 mg 01/23/22 10:00 Prednisone 10 Mg Tab PO 01/23/22 23:00 ONCE ZAKI Prednisone 20 mg 01/24/22 10:00 Prednisone 20 Mg Tab PO 01/24/22 23:00 ONCE ZAKI Prednisone 10 mg 01/25/22 10:00 Prednisone 10 Mg Tab PO 01/25/22 23:00 ONCE ZAKI Sodium Chloride 10 ml 01/19/22 22:00 01/21/22 09:47 Sodium Chloride 0.9% 10 Ml Flush Syringe IV 10 ml BID ZAKI Administration Sodium Chloride 10 ml 01/19/22 21:54 Sodium Chloride 0.9% 10 Ml Flush Syringe IV PRN PRN LINE FLUSH
[2022-01-22] MEDS: IPRATROPIUM/ALBUTEROL SULFATE 3 ML AMPUL.NEB IH SCH ×4 (03:40→22:04)
[2022-01-22 05:52] LABS: Blood Urea Nitrogen 22 mg/dL (9-20); Hemolysis Index 0
[2022-01-22] MEDS: INSULIN REGULAR, HUMAN 100 UNITS/1 ML SUB-Q SCH ×2 (06:00)
[2022-01-22 06:12] LABS: BUN/Creatinine Ratio 44
[2022-01-22 07:08] LABS: Hematocrit 26.6 % (35.5-45.6); Hemoglobin 8.1 gm/dl (11.8-15.2); Mean Corpuscular HGB Conc 30 % (32-34); Mean Corpuscular Volume 70 fl (84-94); Platelet Count 390 K/mm3 (140-440); Red Blood Count 3.78 M/mm3 (3.65-5.03); Red Cell Distribution Width 17.5 % (13.2-15.2)
--- NOTE | 2022-01-22 08:59 | Progress Note ---
Assessment and Plan Assessment and plan: History Interval history: This is a 46-year-old male with HTN, former smoker, COPD on home oxygen, ANNETTA with CPAP use and asthma who presented to the emergency department on 01/19 with dyspnea and respiratory distress via EMS. Of note patient was discharged on 01/19 where he was admitted for COPD exacerbation and discharged with home O2. Patient's stated that he had a bloody stool per rectum and had acute respiratory distress. EMS placed patient on CPAP and gave steroids and Solu-Medrol in the field. Recommend emergency department showed leukocytosis, H/H of 10/32, platelets 44, lactic acidosis at 2.2 and CXR showed proved patchy airspace disease with in the lower lungs. Patient was admitted to the hospitalist service with consult to GI with GI bleed. Hospital course to date: 01/20: Patient weaned from BiPAP to salter. Started on BuSpar. Started on CC diet and Protonix changed to p.o. No further bloody bowel movements noted. 01/21: no acute complaints. Working to wean salter nasal cannula. discussed need for anxiolytic for better respiratory mechanics, patient is still declining. Hgb is still stable as are the patient's vitals...however unclear if patient having blood in stool or not as patient has not had bm yet. no plans for GI for scope. Ok with diet and protonix at this time. 01/22: continue salter nc, bipap qhs. plan for d/c tomorrow with assistance of CM. Assessment and plan: This is a 46-year-old male with HTN, COPD on home oxygen, ANNETTA on CPAP and asthma admitted with possible GI bleed Neuro: Anxiety -BuSpar -Reorientation as needed -Maintain sleep-wake cycle -As needed analgesia Cardiac: h/o HTN -Blood pressure monitoring per protocol -Continue home lisinopril Respiratory: Chronic hypoxic respiratory failure, h/o COPD and asthma -BiPAP nightly -DuoNeb -Salter in the a.m. -See RT notes for titration -Pulmonary hygiene -SPO2 monitoring per protocol -Continue prednisone taper that patient was discharged with yesterday GI: GI bleed (resolved), morbid obesity, moderate protein calorie malnutrition -GI consulted, bleeding (if there is any) likely resolved, no plans for endoscopy/colonoscopy. Recommend PPI. -24 hours -2540 mL -PPI -CC diet : NAD -Monitor intake and output -Renally dose medications -Avoid nephrotoxic medications -Trend BMP ID: NAD -Monitor WBC and temperature curve Endo: Hyperglycemia -Avoid hypoglycemia -SSI -Accu-Cheks q. 6 Heme: Leukocytosis -Trend CBC -Transfuse hemoglobin less than 7 -SCDs to BLE while in bed -Avoid chemical anticoagulation in setting of GI bleed The high probability of a clinically significant, sudden or life threatening deterioration of the [multiple] system(s) required my full and direct attention, intervention and personal management. The aggregate critical care time was [60] minutes. This time is in addition to time spent performing reported procedures but includes the following: [x] Data Review and interpretation [x] Patient assessment and monitoring of vital signs [x] Documentation [x] Medication orders and management Disposition Plan: imcu Total Time Spent with Patient (Minutes): 60 History Interval history: No acute complaints. Hospitalist Physical - Physical exam Narrative exam: General appearance: Present: no acute distress, well-nourished, obese - EENT Eyes: Present: PERRL, EOM intact ENT: hearing intact, clear oral mucosa, dentition normal - Neck Neck: Present: normal ROM - Respiratory Respiratory effort: normal Respiratory: bilateral: diminished - Cardiovascular Rhythm: regular Heart Sounds: Present: S1 & S2. Absent: systolic murmur, diastolic murmur - Extremities Extremities: no ischemia, pulses intact, pulses symmetrical, No edema, normal temperature, normal color, Full ROM Peripheral Pulses: within normal limits - Abdominal General gastrointestinal: soft, non-tender, non-distended, normal bowel sounds - Integumentary Integumentary: Present: warm, dry - Psychiatric Psychiatric: cooperative - Neurologic Neurologic: CNII-XII intact, no focal deficits, moves all extremities - Allied Health Allied health notes reviewed: nursing, RT, social work - Constitutional Vitals: Temp Pulse Resp BP Pulse Ox 98.6 F 69 15 120/73 99 01/22/22 00:00 01/22/22 06:00 01/22/22 06:00 01/22/22 06:00 01/22/22 06:00 General appearance: Present: no acute distress, well-nourished, obese HEART Score - HEART Score Troponin: Troponin T < 0.010 ng/mL (0.00-0.029) 01/19/22 21:03 Results - Labs CBC & Chem 7: 01/22/22 04:53 01/22/22 04:53 Labs: Laboratory Last Values WBC 10.9 K/mm3 (4.5-11.0) 01/22/22 04:53 RBC 3.78 M/mm3 (3.65-5.03) 01/22/22 04:53 Hgb 8.1 gm/dl (11.8-15.2) L 01/22/22 04:53 Hct 26.6 % (35.5-45.6) L 01/22/22 04:53 MCV 70 fl (84-94) L 01/22/22 04:53 MCH 21 pg (28-32) L 01/22/22 04:53 MCHC 30 % (32-34) L 01/22/22 04:53 RDW 17.5 % (13.2-15.2) H 01/22/22 04:53 Plt Count 390 K/mm3 (140-440) 01/22/22 04:53 Lymph % (Auto) 10.5 % (13.4-35.0) L 01/20/22 04:22 [place] % (Auto) 3.4 % (0.0-7.3) 01/20/22 04:22 Eos % (Auto) 0.1 % (0.0-4.3) 01/20/22 04:22 Baso % (Auto) 0.5 % (0.0-1.8) 01/20/22 04:22 Lymph # (Auto) [place] 01/22/22 04:53 [place] # (Auto) 0.6 K/mm3 (0.0-0.8) 01/20/22 04:22 Eos # (Auto) 0.0 K/mm3 (0.0-0.4) 01/20/22 04:22 Baso # (Auto) 0.1 K/mm3 (0.0-0.1) 01/20/22 04:22 Seg Neutrophils % 85.5 % (40.0-70.0) H 01/20/22 04:22 Seg Neutrophils # 15.6 K/mm3 (1.8-7.7) H 01/20/22 04:22 PT 14.3 Sec. (12.2-14.9) 01/19/22 20:13 INR 1.00 (0.87-1.13) 01/19/22 20:13 APTT 22.3 Sec. (24.2-36.6) L 01/19/22 20:13 Sodium 138 mmol/L (137-145) 01/22/22 04:53 Potassium 4.7 mmol/L (3.6-5.0) 01/22/22 04:53 Chloride 98.2 mmol/L (98-107) 01/22/22 04:53 Carbon Dioxide 35 mmol/L (22-30) H 01/22/22 04:53 Anion Gap 10 mmol/L 01/22/22 04:53 BUN 22 mg/dL (9-20) H 01/22/22 04:53 Creatinine 0.5 mg/dL (0.8-1.3) L 01/22/22 04:53 Estimated GFR > 60 ml/min 01/22/22 04:53 BUN/Creatinine Ratio 44 % 01/22/22 04:53 Glucose 92 mg/dL (75-100) 01/22/22 04:53 POC Glucose 102 mg/dL (70-105) 01/21/22 23:31 Lactic Acid 1.90 mmol/L (0.7-2.0) 01/19/22 21:57 Calcium 8.0 mg/dL (8.4-10.2) L 01/22/22 04:53 Magnesium 2.30 mg/dL (1.7-2.3) 01/19/22 21:03 Total Bilirubin 0.20 mg/dL (0.1-1.2) 01/19/22 21:03 AST 13 units/L (5-40) 01/19/22 21:03 ALT 32 units/L (7-56) 01/19/22 21:03 Alkaline Phosphatase 81 units/L (35-129) 01/19/22 21:03 Troponin T < 0.010 ng/mL (0.00-0.029) 01/19/22 21:03 Total Protein 5.5 g/dL (6.3-8.2) L D 01/19/22 21:03 Albumin 3.6 g/dL (3.9-5) L 01/19/22 21:03 Albumin/Globulin Ratio 1.9 % 01/19/22 21:03 Nasal Screen MRSA (PCR) Positive (Negative) 01/20/22 07:12 Blood Type O POSITIVE 01/19/22 21:03 Antibody Screen Negative 01/19/22 21:03 Microbiology: Microbiology 01/19/22 21:57 Peripheral/Venous Blood Culture - Preliminary NO GROWTH AFTER 48 HOURS 01/19/22 21:57 Peripheral/Venous Blood Culture - Preliminary NO GROWTH AFTER 48 HOURS Multani/IV: Voiding Method Urinal Active Medications - Current Medications Current Medications: Generic Name Dose Route Start Last Admin Trade Name Freq PRN Reason Stop Dose Admin Acetaminophen 650 mg 01/19/22 21:54 Acetaminophen 325 Mg Tab PO Q4H PRN Pain MILD(1-3)/Fever >100.5/CHANG Albuterol 2.5 mg 01/19/22 21:54 Albuterol 2.5 Mg/3 Ml Nebu IH Q3HRT PRN Shortness Of Breath Albuterol/Ipratropium 1 ampul 01/20/22 02:00 01/22/22 03:40 Ipratropium/Albuterol Sulfate 3 Ml Ampul.Neb IH 1 ampul Q6HRT ZAKI Administration Alprazolam 0.5 mg 01/19/22 21:56 Alprazolam 0.5 Mg Tab PO Q8H PRN Anxiety Dextrose 50 ml 01/20/22 08:40 Dextrose 50% In Water (25gm) 50 Ml Syringe IV Q30MIN PRN Hypoglycemia Protocol Insulin Human Regular 0 units 01/20/22 12:00 01/22/22 06:00 Insulin Regular, Human 100 Units/1 Ml SUB-Q Not Given Q6HR [facility] Protocol Lisinopril 20 mg 01/20/22 10:00 01/21/22 09:46 Lisinopril 20 Mg Tab PO 20 mg QDAY ZAKI Administration Metoclopramide HCl 10 mg 01/19/22 21:38 Metoclopramide 10 Mg/2 Ml Inj IV Q6H PRN Nausea And Vomiting Morphine Sulfate 2 mg 01/19/22 21:54 Morphine 2 Mg/1 Ml Inj IV Q4H PRN Pain, Moderate (4-6) Morphine Sulfate 4 mg 01/19/22 21:54 Morphine 4 Mg/1 Ml Inj IV Q4H PRN Pain , Severe (7-10) Naloxone HCl 0.1 mg 01/19/22 21:38 Naloxone 0.4 Mg/1 Ml Inj IV Q2MIN PRN Res Rate </= 8 or 02 SAT < 92% Ondansetron HCl 4 mg 01/19/22 21:54 Ondansetron 4 Mg/2 Ml Inj IV Q8H PRN Nausea And Vomiting Prednisone 40 mg 01/22/22 10:00 Prednisone 20 Mg Tab PO 01/22/22 23:00 ONCE ZAKI Prednisone 30 mg 01/23/22 10:00 Prednisone 10 Mg Tab PO 01/23/22 23:00 ONCE ZAKI Prednisone 20 mg 01/24/22 10:00 Prednisone 20 Mg Tab PO 01/24/22 23:00 ONCE ZAKI Prednisone 10 mg 01/25/22 10:00 Prednisone 10 Mg Tab PO 01/25/22 23:00 ONCE ZAKI Sodium Chloride 10 ml 01/19/22 22:00 01/21/22 21:02 Sodium Chloride 0.9% 10 Ml Flush Syringe IV 10 ml BID ZAKI Administration Sodium Chloride 10 ml 01/19/22 21:54 Sodium Chloride 0.9% 10 Ml Flush Syringe IV PRN PRN LINE FLUSH
--- NOTE | 2022-01-22 09:18 | Event Note ---
Date: 01/22/22 I was following up on the patient's chart, hgb downtrend noted, I spoke with nurse on the phone and she reports still no BM's, therefore not active GI bleed, and risks of EGD/colon outweigh benefits. I will restart PPI and GI prophylaxis as pt still in ICU and on steroids. Dr. Cardoza is container maker this week, please call us back if there is overt bleeding (jeff large amount hematochezia or melena) or if pulm status significantly improves and Hgb continues to trend down, as then benefits of endoscopy/colonoscopy may outweigh the risks
[2022-01-22 09:33] LABS: Basophils % (Manual) 0 % (0.0-1.8); Total Cells Counted 100
[2022-01-22 09:34] LABS: Hypochromasia 2+; Platelet Estimate Consistent w Auto
[2022-01-22] MEDS ORDERED: predniSONE 20 MG TAB PO SCH (10:00)
[2022-01-22] MEDS: LISINOPRIL 20 MG TAB PO SCH (10:50)
[2022-01-22] MEDS: PANTOPRAZOLE 40 MG TAB PO SCH (10:50)
[2022-01-23] MEDS: INSULIN REGULAR, HUMAN 100 UNITS/1 ML SUB-Q SCH ×2 (00:57→07:41)
[2022-01-23] MEDS: IPRATROPIUM/ALBUTEROL SULFATE 3 ML AMPUL.NEB IH SCH ×2 (03:37→09:45)
[2022-01-23] MEDS ORDERED: predniSONE 10 MG TAB PO SCH (10:00)
[2022-01-23] MEDS: PANTOPRAZOLE 40 MG TAB PO SCH (10:17)
[2022-01-23] MEDS: LISINOPRIL 20 MG TAB PO SCH (10:18)
--- NOTE | 2022-01-23 11:53 | Discharge Summary ---
Providers - Providers Date of Admission: 01/20/22 13:20 Date of discharge: 01/23/22 Attending physician: MONIQUE BINGHAM MD 01/19/22 20:27 Consult to Physician [CONS] Urgent Comment: called office/ carie Consulting Provider: AMOS CASTILLO Physician Instructions: Reason For Exam: gi bleed 01/21/22 10:59 Physical Therapy Evaluation and Treat [CONS] Routine Comment: Reason For Exam: Deconditioning Primary care physician: JAMA MALDONADO Hospitalization Reason for admission: hematochezia Condition: Serious Hospital course: Interval history: This is a 46-year-old male with HTN, former smoker, COPD on home oxygen, ANNETTA with CPAP use and asthma who presented to the emergency department on 01/19 with dyspnea and respiratory distress via EMS. Of note patient was discharged on 01/19 where he was admitted for COPD exacerbation and discharged with home O2. Patient's stated that he had a bloody stool per rectum and had acute respiratory distress. EMS placed patient on CPAP and gave steroids and Solu-Medrol in the field. Recommend emergency department showed leukocytosis, H/H of 10/32, platelets 44, lactic acidosis at 2.2 and CXR showed proved patchy airspace disease with in the lower lungs. Patient was admitted to the hospitalist service with consult to GI with GI bleed. Hospital course to date: 01/20: Patient weaned from BiPAP to salter. Started on BuSpar. Started on CC diet and Protonix changed to p.o. No further bloody bowel movements noted. 01/21: no acute complaints. Working to wean salter nasal cannula. discussed need for anxiolytic for better respiratory mechanics, patient is still declining. Hgb is still stable as are the patient's vitals...however unclear if patient having blood in stool or not as patient has not had bm yet. no plans for GI for scope. Ok with diet and protonix at this time. 01/22: continue salter nc, bipap qhs. plan for d/c tomorrow with assistance of CM. 01/23: Medically clear for discharge. Will go home with previously arranged home O2 concentrator. D/w Cm. No bleeding not in BM per patient report. Will discharge home with rx for protonix (e-scribed) and instructions to follow up with OP pulmonology and gastroenterology. Assessment and plan: This is a 46-year-old male with HTN, COPD on home oxygen, ANNETTA on CPAP and asthma admitted with possible GI bleed Neuro: Anxiety -BuSpar -Reorientation as needed -Maintain sleep-wake cycle -As needed analgesia Cardiac: h/o HTN -Blood pressure monitoring per protocol -Continue home lisinopril Respiratory: Chronic hypoxic respiratory failure, h/o COPD and asthma -BiPAP nightly -DuoNeb -Salter in the a.m. -See RT notes for titration -Pulmonary hygiene -SPO2 monitoring per protocol -Continue prednisone taper that patient was discharged with yesterday GI: GI bleed (resolved), morbid obesity, moderate protein calorie malnutrition -GI consulted, bleeding (if there is any) likely resolved, no plans for endoscopy/colonoscopy. Recommend PPI. -24 hours -2540 mL -PPI -CC diet : NAD -Monitor intake and output -Renally dose medications -Avoid nephrotoxic medications -Trend BMP ID: NAD -Monitor WBC and temperature curve Endo: Hyperglycemia -Avoid hypoglycemia -SSI -Accu-Cheks q. 6 Heme: Leukocytosis -Trend CBC -Transfuse hemoglobin less than 7 -SCDs to BLE while in bed -Avoid chemical anticoagulation in setting of GI bleed Disposition: 06 HOME HEALTH CARE SERVICE Final Discharge Diagnosis (Prints w/discharge instructions): acute on chronic hypoxic respiratory failure, hematochezia Time spent for discharge: 35 Core Measure Documentation - Palliative Care Palliative Care/ Comfort Measures: Not Applicable - Core Measures Any of the following diagnoses?: none Exam - Physical Exam Narrative exam: General appearance: Present: no acute distress, well-nourished, obese - EENT Eyes: Present: PERRL, EOM intact ENT: hearing intact, clear oral mucosa, dentition normal - Neck Neck: Present: normal ROM - Respiratory Respiratory effort: normal Respiratory: bilateral: diminished - Cardiovascular Rhythm: regular Heart Sounds: Present: S1 & S2. Absent: systolic murmur, diastolic murmur - Extremities Extremities: no ischemia, pulses intact, pulses symmetrical, No edema, normal temperature, normal color, Full ROM Peripheral Pulses: within normal limits - Abdominal General gastrointestinal: soft, non-tender, non-distended, normal bowel sounds - Integumentary Integumentary: Present: warm, dry - Psychiatric Psychiatric: cooperative - Neurologic Neurologic: CNII-XII intact, no focal deficits, moves all extremities - Allied Health Allied health notes reviewed: nursing, RT, social work - Constitutional Vitals: Temp Pulse Resp BP Pulse Ox 98.7 F 72 21 117/54 97 01/23/22 08:00 01/23/22 11:00 01/23/22 11:00 01/23/22 11:00 01/23/22 11:00 Plan Follow up with: JAMA MALDONADO JR, MD [Primary Care Provider] - 7 Days MARIELLE STEPHENSON MD [Staff Physician] - 7 Days BÁRBARA ASHFORD MD [Staff Physician] - 7 Days Prescriptions: Pantoprazole [Protonix TAB] 40 mg PO QDAC 30 Days #30 tablet
[2022-01-23 14:06] VITALS: BP 120/57
[2022-01-24] MEDS ORDERED: predniSONE 20 MG TAB PO SCH (10:00)
[2022-01-25] MEDS ORDERED: predniSONE 10 MG TAB PO SCH (10:00)
== END 2022-01-23 14:34 | disposition home or self-care (01) | DRG 377 ==
LOC: ED 20:05 → IMCU 21:39 → OBSVTOIN 01-20 13:20
PROVIDERS: ADMIT Hospitalist; ATTEND Internal Medicine
PROC: 5A09457 Assistance with Respiratory Ventilation, 24-96 Consecutive Hours, Continuous Positive Airway Pressure (ICD-10-PCS; principal; 2022-01-19)
DX: K92.2 Gastrointestinal hemorrhage, unspecified (principal); J18.9 Pneumonia, unspecified organism; J96.21 Acute and chronic respiratory failure with hypoxia; E44.0 Moderate protein-calorie malnutrition; Z68.44 Body mass index [BMI] 60.0-69.9, adult; J44.0 Chronic obstructive pulmonary disease with (acute) lower respiratory infection; J44.1 Chronic obstructive pulmonary disease with (acute) exacerbation; E66.2 Morbid (severe) obesity with alveolar hypoventilation; R73.9 Hyperglycemia, unspecified; Z79.899 Other long term (current) drug therapy; Z79.4 Long term (current) use of insulin; Z82.49 Family history of ischemic heart disease and other diseases of the circulatory system; F41.9 Anxiety disorder, unspecified
CPT/HCPCS: 36415; 71045; 80048; 80053; 82140; 82270; 82962; 83735; 84484; 85007; 85025; 85027; 85610; 85730; 86850; 86900; 86901; 87040; 87641; 93005; 93970; 94640; 94644; 94660; 96374; 96375; 99285; G0378; Q9967; C9113; J0456; J0696; J1815; J1940; J2930; J3475; J7512